=== PATIENT | female | born 1945 | race African-American/Black ===

== ENCOUNTER 2020-09-15 08:32 | Outpatient (CLI) | payer MEDICARE, SELFPAY ==
--- NOTE | ~2020-09-15 | US_ITS ---
EXAMINATION: US arterial ankle brachial ind EXAM DATE: 09/15/2020 09:29 INDICATION: Localized edema. TECHNIQUE: Segmental pressures and plethysmographic and Doppler waveforms of the brachial and lower e xtremity arteries were obtained. There is no prior study for comparison. FINDINGS: Right and left brachial artery pressures of 150 mm Hg and 178 mm Hg, respectively, are borderline dis cordant (normal difference <= 30 mmHg). RIGHT LEG: The ankle-brachial index (JERSEY) is 0.75 (normal >= 0.9-1). The great toe-brachial index (TBI) is 0.39 (normal >= 0.65). The lower extremity ratios, segmental pressure gradients as follows; Dorsalis pedis: 0.68 (121 mmHg). Posterior tibial: 0.75 (133 mmHg). (Normal gradients <= 20-30 mmHg between adjacent levels on the same leg or the same levels on the two legs). Arterial waveforms are monophasic. LEFT LEG: The ankle-brachial index (JERSEY) is 0.89 (normal >= 0.9-1). The great toe-brachial index (TBI) is 0.43 (normal >= 0.65). The lower extremity ratios, segmental pressure gradients as follows; Dorsalis pedis: 0.89 (158 mmHg). Posterior tibial: 0.83 (148 mmHg). (Normal gradients <= 20-30 mmHg between adjacent levels on the same leg or the same levels on the two legs). Arterial waveforms are biphasic DP, monophasic PT. IMPRESSION: 1. Right ankle-brachial index 0.75, mildly decreased. 2. Left ankle-brachial index 0.89, essentially normal. 3. Segmental pressures as above. 4. 28 mmHg discrepancy between right and left brachial arteries, possibly indicating subclavian dahiana rial stenosis on the right. If indicated clinically, a CTA carotid with contrast specify left arm inj ection can be obtained. Reviewed, dictated and finalized at location A. IMPRESSION: 1. Right ankle-brachial index 0.75, mildly decreased. 2. Left ankle-brachial index 0.89, essentially normal. 3. Segmental pressures as above. 4. 28 mmHg discrepancy between right and left brachial arteries, possibly jus cating subclavian arterial stenosis on the right. If indicated clinically, a CT A carotid with contrast specify left arm injection can be obtained.
== END 2020-09-15 08:33 | disposition home or self-care (01) ==
PROVIDERS: Visit Provider Orthopaedic Surgery
DX: R60.0 Localized edema (principal); R09.89 Other specified symptoms and signs involving the circulatory and respiratory systems
CPT/HCPCS: 93922

== ENCOUNTER 2021-03-25 19:29 | Inpatient (IN) | payer MEDICARE, SELFPAY ==
--- NOTE | ~2021-03-25 | XR_ITS ---
XR chest 2V DATE: 03/25/2021 20:12 INDICATION: Midsternal left-sided chest pain, shortness of breath. History of COPD, hypertension TECHNIQUE: AP and lateral chest COMPARISON: None FINDINGS: Normal heart size. Aortic arch calcification and mild aortic unfolding. No hilar or mediast inal enlargement. No pulmonary infiltrate or consolidation, pleural effusion or pulmonary vascular congestion or pneumo thorax. Degenerative spurring of the thoracic spine. IMPRESSION: No active cardiopulmonary disease Reviewed, dictated and finalized at location A.
--- NOTE | 2021-03-25 19:30 | ECG_ITS ---
Measurements Intervals [place] Rate: 72 P: 75 IN: 144 QRS: -12 QRSD: 109 T: 231 QT: 399 QTc: 437 Interpretive Statements SINUS RHYTHM DELAYED PRECORDIAL R/S TRANSITION T WAVE ABNORMALITY IN LATERAL LEADS- CONSIDER ISCHEMIA BASELINE ARTIFACT- I, II, III, AVR ABNORMAL ECG Electronically Signed On 03-25-2021 22:32:57 CDT by Marcos Salcido D.O.
[2021-03-25 19:40] VITALS: BP 171/98; PULSE 76; RESP 18; TEMP 36.8; O2SAT 99
[2021-03-25 19:49] VITALS: PULSE 72
[2021-03-25 20:07] LABS: Basophils Percent Auto 0.7 % (0.2-1.2); Eosinophils Absolute Auto 0.3 K/mm3 (0-0.3); Eosinophils Percent Auto 4.3 % (0-4.4); Hematocrit 40.6 % (37.0-47.0); Hemoglobin 13.7 g/dL (12.0-15.0); Immature Granulocyte Absolute 0.01 K/mm3 (0.00-0.031); Immature Granulocyte Percent A 0.2 % (0-0.5); Lymphocytes Absolute Auto 2.19 K/mm3 (0.9-3.2); Mean Corpuscular HGB Conc 33.7 g/dl (32-36); Mean Corpuscular Hemoglobin 29.1 pg (26-34); Mean Corpuscular Volume 86.4 fl (80-100); Mean Platelet Volume 10.4 fl (7.4-10.4); Monocytes Absolute Auto 0.5 K/mm3 (0.1-0.6); Monocytes Percent Auto 8.7 % (2.6-8.5); Neutrophils Absolute Auto 2.8 K/mm3 (1.3-6.7); Neutrophils Percent Auto 48.1 % (45.5-73.1); Platelet Count Result 276 k/mm3 (150-375); Red Cell Distribution Width 13.8 % (11.5-14.5); White Blood Count 5.8 K/mm3 (4.5-10.0)
[2021-03-25 20:18] LABS: Anion Gap 9 mmol/L (8-16); Blood Urea Nitrogen 35 mg/dL (7-17); Carbon Dioxide 31 mmol/L (22-30); Chloride 101 mmol/L (98-107); Estimated CRCL calculation 32 ml/min; Estimated Glomerular Filt Rate 41; Glucose 118 mg/dL (65-110); Sodium 141 mmol/L (137-145)
[2021-03-25 20:23] LABS: Prothrombin Time 12.8 Seconds (11.1-14.7)
[2021-03-25 20:24] LABS: Partial Thromboplastin Time 25.1 SECONDS (22.3-36.8)
[2021-03-25 20:29] LABS: Troponin I 0.015 ng/mL (0.000-0.034)
--- NOTE | 2021-03-25 21:09 | ECG_ITS ---
Measurements Intervals [place] Rate: 64 P: 89 [place]: 164 QRS: -37 QRSD: 110 T: 145 QT: 422 QTc: 436 Interpretive Statements SINUS RHYTHM LEFT AXIS DEVIATION DELAYED PRECORDIAL R/S TRANSITION INFERIOR INFARCT, AGE INDETERMINATE ST-T WAVE ABNORMALITY IN ANTEROLAT/HIGH LAT LEADS- CONSIDER ISCHEMIA BASELINE ARTIFACT- I, II, III, AVR, AVL, AVF, V1-V6 ABNORMAL ECG Electronically Signed On 03-28-2021 10:00:05 CDT by Marcos Salcido D.O.
--- NOTE | 2021-03-25 21:11 | PC.NURSE ---
2100 pt c/o chest pain 10/10 12 lead ekg repeated
[2021-03-25 21:12] VITALS: BP 179/90; PULSE 69; RESP 18; O2SAT 99
[2021-03-25 21:15] LABS: Alanine Aminotransferase 17 U/L (4-35); Albumin Level 4.7 g/dL (3.5-5.1); Alkaline Phosphatase 97 U/L (38-126); Aspartate Amino Transferase 37 U/L (14-36); Bilirubin,Total 0.6 mg/dL (0.2-1.3); Lipase 169 U/L (23-300)
--- NOTE | 2021-03-25 21:16 | ED.GENADULT ---
HPI - General Adult General Chief complaint: Chest Pain Stated complaint: chest pain Time Seen by Provider: 03/25/21 19:44 History of Present Illness HPI narrative: Patient 75-year-old female presents emerged department with chief complaint of chest pain. Patient reports that she has been having some intermittent episodes of discomfort in her chest she was seen at a facility over in [place] recently was admitted had a stress test the patient did not have a cardiac cath at that time and the patient was to follow-up as an outpatient. The patient reports that today she has been having multiple episodes of a heaviness sensation in her chest that radiates to her jaw. Patient states the symptoms were improved with nitroglycerin that she was given by EMS she reports she is taken 4 baby aspirin prior to arrival as well Related Data Home Medications Medication Instructions Recorded Confirmed carvedilol 25 mg tablet 25 mg PO Q12H 04/21/20 07/24/20 clopidogrel 75 mg tablet 75 mg PO DAILY 04/21/20 07/24/20 insulin aspart U-100 100 unit/mL 5 unit SUBCUT TID 04/21/20 07/24/20 (3 mL) subcutaneous pen losartan 100 mg tablet 100 mg PO DAILY 04/21/20 07/24/20 meclizine 25 mg tablet 25 mg PO BID 04/21/20 07/24/20 nifedipine 30 mg tablet,extended 30 mg PO DAILY 04/21/20 07/24/20 release spironolactone 25 mg tablet 25 mg PO DAILY 04/21/20 07/24/20 Allergies Allergy/AdvReac Type Severity Reaction Status Date / Time meperidine [From Demerol] Allergy Hives Verified 03/25/21 20:00 erythromycin base AdvReac make heart Verified 03/25/21 20:03 flip/flop [id number] Reductase AdvReac body pain Verified 03/25/21 20:02 Inhibitor Review of Systems Review of Systems: A 10 system review of systems was completed on the patient and is negative except for what is stated in the HPI. Nursing and ancillary documentation was reviewed. [facility] Past Medical History Medical History Arthritis Bilateral lower extremity edema COPD (chronic obstructive pulmonary disease) Diabetes High cholesterol Kidney disease Left knee DJD Left knee pain Right knee pain Shortness of breath Sleep apnea Surgical History Surgical History History of carpal tunnel release History of vascular surgery Family History Family History Other Diabetes mellitus Heart disease Hypertension Social History Social History Smoking status: Former smoker Alcohol intake: current Exam Narrative: GENERAL: Well-appearing, well-nourished, and in no acute distress. HEAD: Normocephalic, atraumatic. EYES: PERRLA and EOMI. ENT: Nares clear, no rhinorrhea or epistaxis. Mucous membranes moist. NECK: Supple. CHEST: Clear to auscultation. No respiratory distress. HEART: Regular rate and rhythm. No murmur heard. Normal peripheral pulses. ABDOMEN: Soft, nontender, nondistended, normal active bowel sounds. EXTREMITIES: Normal range of motion. No edema. SKIN: Warm, dry, no rash. NEURO: No focal deficits. Alert and oriented x3. PSYCH: Normal mood and affect. Course Vital Signs Vital signs: Vital Signs Temperature 36.8 C 03/25/21 19:40 Pulse Rate 76 03/25/21 19:40 Respiratory Rate 18 03/25/21 19:40 Blood Pressure 171/98 H 03/25/21 19:40 Pulse Oximetry 99 03/25/21 19:40 Temperature 36.8 C 03/25/21 19:40 Pulse Rate 72 03/25/21 22:27 Respiratory Rate 20 03/25/21 22:27 Blood Pressure 208/102 H 03/25/21 22:27 Pulse Oximetry 99 03/25/21 21:12 Medical Decision Making Vital Signs Vital Signs: Vital Signs Temperature 36.8 C 03/25/21 19:40 Pulse Rate 76 03/25/21 19:40 Respiratory Rate 18 03/25/21 19:40 Blood Pressure 171/98 H 03/25/21 19:40 Pulse Oximetry 99
[2021-03-25] MEDS: ONDANSETRON INJ 4 MG/2 ML VIAL IV PUSH (22:04)
[2021-03-25 22:27] VITALS: BP 208/102; PULSE 72; RESP 20
--- NOTE | 2021-03-25 22:28 | PC.NURSE ---
rates chest pain 6/10 ntg 0.4mg sl
[2021-03-25] MEDS: NITROGLYCERIN SL 0.4 MG TABLET SUBLINGUAL (22:29)
[2021-03-25] MEDS: MORPHINE SULFATE (*CRX) 4 MG/ML INJ IV PUSH (22:30)
[2021-03-25] MEDS: BELLADONNA ALK/PHENOB ELIX 10 ML, MAG HYDROX/ALUMINUM HYD/SIMETH 30 ML, LIDOCAINE HCL 2... PO (22:32)
[2021-03-25] MEDS: NITROGLYCERIN OINTMENT 1 INCH DOSE TRANSDERM (22:34)
[2021-03-25] MEDS: PANTOPRAZOLE SODIUM IV 40 MG VIAL IV PUSH (22:37)
[2021-03-25 22:38] VITALS: BP 130/84; PULSE 84; RESP 18
[2021-03-25 22:55] LABS: Troponin I 0.015 ng/mL (0.000-0.034)
[2021-03-25 23:36] VITALS: BP 156/76; PULSE 63; RESP 18; O2SAT 95
[2021-03-26] VITALS (18 sets, daily range): BP systolic 120–164; BP diastolic 46–83; PULSE 50–94; RESP 16–20; TEMP 36.2–36.6; O2SAT 94–99; BMI 27.8; BMI 27.9
--- NOTE | 2021-03-26 01:24 | ADMGEN ---
This patient, Sony Ricardo, was admitted to IMU Room 206-01 at 0055. Patient/family oriented to hospital policies and general routines including ID bracelet, bed and alarms, visiting hours, pain management, procedures, bathroom and other care routines, personal items, smoking policy, room service/diet, and visiting hours. Information on how to activate the Rapid Response Team has been discussed. Patient/Family are encouraged to report perceived risks to care and to ask questions if they do not understand what they are told or what they should do.
[2021-03-26 02:50] LABS: Troponin I 0.038 ng/mL (0.000-0.034)
--- NOTE | 2021-03-26 05:10 | PM.IMHP ---
H&P: HPI History of Present Illness Date/Time: 03/26/21 05:10 Chief Complaint: Chest pain Narrative: Extremely pleasant 75-year-old female with a past medical history of peripheral artery disease, diabetic nephropathy, diabetic neuropathy, well controlled diabetes mellitus, hyperlipidemia, and hypertension who presented to the ER with chest pain. The patient reports that she has been having intermittent chest pain for 1 month. Two weeks ago she went to hospital in [place] where she had a stress test and an echocardiogram. She was told that her heart with strong but was instructed to follow up as outpatient for further evaluation. She reports her chest pain is substernal in nature and is a heaviness. The pain radiates to her right arm and right jaw. Is accompanied by nausea, diaphoresis and shortness of breath. She reported that her symptoms started while she was at rest and started around 2:00 a.m. on the . She took 3 nitro and 4 baby aspirin with improvement in her symptoms. Then a couple of hours later she had recurrence of her symptoms and required 2 more nitro and aspirin. She had her son bring her to the ER but before they got to the ER her chest pain resolved so she went home. She then had symptoms again in laid down. This time her symptoms did not resolve and she came back to the ER. She reports that she had a prior cardiac catheterization performed by Dr. Ledezma at [facility] several years ago that demonstrated no significant coronary artery disease. She had peripheral vascular angiogram approximately 4 years ago with bilateral lower extremity stents placed. She had bilateral renal artery stents placed approximately 2 years ago. She denies any orthopnea. She has been having some bilateral ankle swelling for the last couple of months. She denies any paroxysmal nocturnal dyspnea. She has some chronic shortness of breath due to her COPD. She does have nebulizers at home but has not had the use them in quite some time. She denies any significant cough or congestion. She denies any fevers or chills. She has not vaccinated against COVID. She denies a history of CHF but is on Bumex at home. She ambulates with a walker at home due to left knee pain. She states that she needs a knee replacement but they will not do it until her other medical issues are better. She had ABIs performed in August which demonstrated decreased JERSEY in the right lower extremity. It also demonstrated a 28 point very insulin upper extremity blood pressure suggesting possible right-sided subclavian stenosis and recommended CTA of the carotids at that time however they did not proceed with the testing due to the patient's chronic kidney disease. Review of Systems Review of Systems: 12 systems were reviewed with pertinent positives and negatives per HPI. Except as documented in the HPI, all other systems were reviewed and are negative. [facility] Past Medical History Medical History (Updated 03/26/21 @ 07:08 by Niru Gamino DO) Bilateral atherosclerotic renal artery stenosis Chronic kidney disease, stage 3 COPD (chronic obstructive pulmonary disease) Diabetes Hemoglobin A1c 6.5 % March 2021 Diabetic nephropathy Diabetic neuropathy High cholesterol Intolerant to statins History of stent insertion of renal artery Left knee DJD Obstructive sleep apnea Intolerant to CPAP Peripheral artery disease Right knee pain Surgical History Surgical History (Updated 03/26/21 @ 06:59 by Niru Gamino DO) History of carpal tunnel release History of vascular surgery Bilateral lower extremity stents Family History Family History Other Diabetes mellitus Heart disease Hypertension Social History Social History (Updated 03/26/21 @ 07:02 by Niru Gamino DO) Social History: She lives at home alone. She ambulates with a walker due to her knee pain. She is independent activities
[2021-03-26] MEDS: NITROGLYCERIN OINTMENT 1 INCH DOSE TRANSDERM ×4 (06:46→23:24)
[2021-03-26 08:53] LABS: Glucose Point of Care 71 mg/dl (65-105)
--- NOTE | 2021-03-26 09:05 | PM.CNCAR ---
Assessment and Plan Assessment and plan (1) Chest pain at rest: Code(s): R07.9 - Chest pain, unspecified Status: Acute Assessment and Plan: Concerning for unstable angina. She does have high blood pressure also which may be causing the pain but given the fact that she has had a recent stress test and yet recurrent classic symptoms that are worsened with activity and improved with rest or nitroglycerin, I think it is prudent to proceed with coronary angiogram to define her coronary anatomy. She verbalized understanding and is agreeable. She does have some chronic renal insufficiency. Catheterization will be deferred until tomorrow. For today will start her on IV fluids at 75 cc per hour normal saline for renal protection. Nitroglycerin paste 1 in Q 6 hours. Will check a 2D echocardiogram Doppler. Continue clopidogrel. Will give her an ACS dose of enoxaparin 1 milligram/kilogram x1 now. Carvedilol 25 mg p.o. b.i.d.. Hold Bumex for today. Increase nifedipine to 60 mg daily. Continue losartan. Diabetes management per hospitalist. She may eat now within NPO after midnight. (2) Peripheral vascular disease: Code(s): I73.9 - Peripheral vascular disease, unspecified Status: Acute Assessment and Plan: As detailed above. Will request records from [facility] regarding recent stress test as well as records from [facility] (3) Hypertension associated with diabetes: Code(s): E11.59 - Type 2 diabetes mellitus with other circulatory complications; I15.2 - Hypertension secondary to endocrine disorders Status: Acute Assessment and Plan: Above goal. Continue carvedilol, losartan. Will increase nifedipine to 60 mg daily. (4) Hyperlipidemia associated with type 2 diabetes mellitus: Code(s): E11.69 - Type 2 diabetes mellitus with other specified complication; E78.5 - Hyperlipidemia, unspecified Status: Acute Assessment and Plan: Intolerant to statins. Outpatient [facility] would be advisable (5) CKD (chronic kidney disease) stage 3, GFR 30-59 ml/min: Code(s): N18.30 - Chronic kidney disease, stage 3 unspecified Status: Acute Assessment and Plan: Plan as above including IV hydration before and after catheterization. Coronary angiogram only without LV g will be performed. . (6) Elevated troponin: Code(s): R77.8 - Other specified abnormalities of plasma proteins Status: Acute Assessment and Plan: Either related to underlying ischemic heart disease or marked hypertension. (7) Tobacco abuse: Code(s): Z72.0 - Tobacco use Status: Acute Assessment and Plan: Counseling performed History of Present Illness History of Present Illness Consult date/time: 03/26/21 09:05 Requesting physician: Jhon Infante MD Consult reason: chest pain Reason For Visit: chest pain, unstable angina Narrative: Date of service: 03/26/2021 Reason for consultation: Chest pain, unstable angina Requesting provider: Dr. INFANTE History: Patient is a 75-year-old female with a history of peripheral vascular disease, diabetes and diabetic complications including neuropathy, nephropathy, hyperlipidemia hypertension. She has been having worsening chest pains for about a month. Chest pains are severe pressure-like sensation in her anterior chest. It also radiates to the right side of her jaw as well as down her right arm. It occurs with and without activity but is definitely worsening with activity. It is improved with rest and nitroglycerin. Yesterday she took 5 nitroglycerin with improvement of her symptoms each time but the symptoms would come back. Her symptoms yesterday lasted about an hour before she came to the emergency department for further workup and evaluation. She also took 4 aspirins yesterday. She has peripheral vascular disease and had lower extremity stents placed about 4 years ago as well as renal
[2021-03-26] MEDS: ENOXAPARIN 40 MG/0.4 ML SYRINGE SUB-Q ×2 (09:07→11:12)
[2021-03-26] MEDS: BUMETANIDE 1 MG TABLET PO (09:07)
[2021-03-26] MEDS: NIFEdipine 30 MG TAB.ER.24 PO (09:07)
[2021-03-26] MEDS: CLOPIDOGREL BISULFATE 75 MG TABLET PO (09:07)
[2021-03-26] MEDS: LOSARTAN POTASSIUM 100 MG TABLET PO (09:07)
[2021-03-26] MEDS: carvediloL 25 MG TABLET PO ×2 (09:07→17:25)
[2021-03-26] MEDS: ASPIRIN 81 MG CHEWABLE TABLET PO (09:07)
[2021-03-26] MEDS: MECLIZINE HCL 25 MG TABLET PO ×2 (09:07→17:25)
[2021-03-26] MEDS: SODIUM CHLORIDE 0.9% IV 1,000 ML 75 ML IV CONT ×2 (11:12→23:24)
[2021-03-26 12:58] LABS: Glucose Point of Care 112 mg/dl (65-105)
--- NOTE | 2021-03-26 13:48 | PM.IMPN ---
Progress Note: A&P Assessment and Plan (1) Chest pain at rest: Code(s): R07.9 - Chest pain, unspecified Status: Acute Assessment and Plan: According to patient she just had extensive workup performed at outside facility including a stress test however patient with recurrent chest pain. Patient going for left cardiac catheterization Appreciate cardiology note Supportive care (2) Insulin dependent diabetes mellitus: Status: Acute Assessment and Plan: Continue home meds Accu-Cheks AC and HS Carb consistent diet (3) Chronic kidney disease, stage 3: Code(s): N18.30 - Chronic kidney disease, stage 3 unspecified Status: Inactive Assessment and Plan: Continue to monitor Additional Plan Patient has a history of multiple comorbidities in presented with chest pain at rest. Her initial 2 troponins were negative but her final troponin did return weekly positive. She has not had a recurrence of her chest pain since arriving to the intermediate unit. Patient has been admitted to the intermediate unit. He has been monitored on telemetry. With completed serial enzymes. Cardiology has been consulted for further recommendations. Will continue patient's home Bumex, Coreg, Plavix and aspirin. Will continue her nifedipine for her hypertension. The patient has historically well-controlled diabetes mellitus. She remains euglycemic. The patient may continue to use her insulin pump. Her pump is filled with NovoLog. Her basal rate is 1 unit/hour between midnight and 7:30 a.m.. The rest the day her rate is at 1.3 units. Her insulin to carb ratio is 1 unit per every 10 carbs. Her correction factor is 1 unit of insulin for every 30 mg/dL of glucose above 120. The patient's creatinine is stable and at baseline. Her civil preparedness coordinator is Dr. Mayberry at [facility] Patient has been admitted as observation status. Subjective Date/time seen: 03/26/21 13:48 I have chest pain Review of Systems Review of Systems: Patient presented to the emergency room due to retrosternal chest pain with radiation bilaterally and up to the jaw Constitutional: Constitutional: Denies chills, Denies fatigue, Denies fever(s), Denies malaise and Denies weakness Eyes: Eyes: Denies change in vision ENT: Denies dysphagia, Denies nasal congestion, Denies nasal discharge, Denies nasal obstruction and Denies odynophagia Cardiovascular: Cardiovascular: Reports chest pain at rest, Denies irregular heart rhythm, Denies lightheadedness, Reports radiating jaw, neck or arm pain, Denies palpitations and Denies dyspnea Respiratory: Respiratory: Denies cough, Denies dyspnea and Denies wheezing Gastrointestinal: Gastrointestinal: Denies abdominal pain, Denies GI cramping, Denies dyspepsia, Denies heartburn, Denies diarrhea, Denies nausea and Denies vomiting Genitourinary: Genitourinary: Reports no additional female genitourinary complaints Musculoskeletal: Musculoskeletal: Reports no additional musculoskeletal complaints Integumentary/Breasts: Skin/Breast: Reports system reviewed and no additional complaints, except as docu Neurologic: Reports system reviewed and no additional complaints, except as documented Psychiatric: Psychiatric: Reports no additional psychiatric complaints Endocrine: Endocrine: Reports no additional endocrine complaints Hematologic/Lymphatic: Hematologic/Lymphatic: Reports no additional hematologic/lymphatic complaints Allergic/Immunologic: Allergic/Immunologic: Reports no additional allergic/immunologic complaints Exam Const: General: cooperative, comfortable, no acute distress, well developed, alert, awake and other (Well-appearing) Nutritional Appearance: average body habitus Orientation/consciousness: patient oriented x3 HENMT: Head: normal to inspection, normocephalic and atraumatic Ears: hearing grossly normal bilaterally General nose exam: Normal external nose present Face and sinus: normal facial exa
[2021-03-26 16:28] LABS: Glucose Point of Care 127 mg/dl (65-105)
[2021-03-26 19:57] LABS: Glucose Point of Care 130 mg/dl (65-105)
[2021-03-27] VITALS (24 sets, daily range): BP systolic 113–166; BP diastolic 47–86; PULSE 45–74; RESP 12–20; TEMP 36.1–37.1; O2SAT 96–100
[2021-03-27] MEDS: NITROGLYCERIN OINTMENT 1 INCH DOSE TRANSDERM ×4 (05:47→23:43)
--- NOTE | 2021-03-27 07:38 | PM.IMPN ---
Progress Note: A&P Assessment and Plan (1) Chest pain at rest: Code(s): R07.9 - Chest pain, unspecified Status: Acute Assessment and Plan: According to patient she just had extensive workup performed at outside facility including a stress test however patient with recurrent chest pain. Patient going for left cardiac catheterization (2) Insulin dependent diabetes mellitus: Status: Acute Assessment and Plan: Continue home meds Accu-Cheks AC and HS Carb consistent diet (3) Chronic kidney disease, stage 3: Code(s): N18.30 - Chronic kidney disease, stage 3 unspecified Status: Inactive Assessment and Plan: Continue to monitor Additional Plan 75yo lady with exertional chest pain concerning for unstable angina. Cardiology on board and plan for cardiac cath today, which was completed: -s/p with mid lad stent -noted 70% stenosis OM proximal branch, 30-40% proximal RCA stenosis & 50-70% mid RCA stenosis Continue DAPTShe is receiving Q6hr nitroglycerin paste and coreg. Holding bumex and inc nifedipine to 60 per cardiology. Follow 2d echo. Plan for discharge tomorrow morning. Time Spent With Patient Time with patient: less than 15 minutes Subjective Date/time seen: 03/27/21 07:38 no acute complaints resting comfortably Review of Systems Review of Systems: All systems reviewed & are unremarkable except as noted in HPI and below Exam Const: General: no acute distress Neck: Neck: no JVD Resp: Auscultation: clear to auscultation bilaterally Cardio: Rate: regular rate Rhythm: regular rhythm GI: GI Palp: Yes Soft to palpation and No Tenderness to palpation present (GI) Objective Data Vital Signs Vital Signs: Vital Signs - 24 hr 03/26/21 08:00 03/26/21 09:07 03/26/21 10:00 Temperature 97.9 F Pulse Rate 54 L 60 68 Respiratory Rate 18 Blood Pressure 135/71 Pulse Oximetry 95 03/26/21 12:00 03/26/21 14:00 03/26/21 16:00 Temperature 97.6 F 97.2 F L Pulse Rate 61 50 L 54 L Respiratory Rate 18 16 Blood Pressure 121/59 L 139/68 Pulse Oximetry 94 99 03/26/21 17:25 03/26/21 18:00 03/26/21 19:14 Temperature 97.5 F L Pulse Rate 59 L 55 L 55 L Respiratory Rate 16 Blood Pressure 135/46 L Pulse Oximetry 98 03/26/21 20:00 03/26/21 21:18 03/26/21 22:00 Temperature Pulse Rate 73 52 L Respiratory Rate 16 Blood Pressure Pulse Oximetry 98 96 03/26/21 23:36 03/27/21 00:00 03/27/21 02:00 Temperature 97.5 F L Pulse Rate 52 L 59 L 48 L Respiratory Rate 20 20 Blood Pressure 120/56 L Pulse Oximetry 96 96 03/27/21 03:47 03/27/21 04:00 03/27/21 06:00 Temperature 97.2 F L Pulse Rate 68 50 L 58 L Respiratory Rate 16 16 Blood Pressure 127/57 L Pulse Oximetry 99 99 Intake/Output Intake/Output: Intake & Output 03/24/21 03/25/21 03/26/21 03/27/21 23:59 23:59 23:59 23:59 Intake Total 2560 Output Total 1600 900 Balance 960 -900 Meds/Results Medications: Active Medications Generic Name Dose Route Start Last Admin Trade Name Freq PRN Reason Stop Dose Admin Aspirin 81 mg 03/26/21 08:00 03/26/21 09:07 Aspirin 81 Mg Chewable Tablet PO 81 mg DAILY@0800 KEYLA Administration Bumetanide 1 mg 03/26/21 09:00 03/26/21 09:07 Bumetanide 1 Mg Tablet PO 1 mg DAILY KEYLA Administration Carvedilol 25 mg 03/26/21 08:00 03/26/21 17:25 Carvedilol 25 Mg Tablet PO 25 mg BIDWM KEYLA Administration Clopidogrel Bisulfate 75 mg 03/26/21 09:00 03/26/21 09:07 Clopidogrel Bisulfate 75 Mg Tablet PO 75 mg DAILY KEYLA Administration Dextrose 12.5 gm 03/26/21 05:15 Dextrose 50% 25 Gm/50 Ml Syringe IV PUSH PRN PRN Hypoglycemia Protocol Glucagon 1 mg 03/26/21 05:15 Glucagon For Inj 1 Mg Vial IM PRN PRN Hypoglycemia Protocol Glucose 15 gm 03/26/21 05:15 Glucose Oral Gel 15 Gm Of Glucse In 37.5 Gm Tube PO PRN PRN Hypoglycemia
[2021-03-27 08:07] LABS: Basophils Percent Auto 0.6 % (0.2-1.2); Eosinophils Absolute Auto 0.3 K/mm3 (0-0.3); Eosinophils Percent Auto 6.5 % (0-4.4); Hematocrit 34.8 % (37.0-47.0); Hemoglobin 11.5 g/dL (12.0-15.0); Immature Granulocyte Absolute 0.01 K/mm3 (0.00-0.031); Immature Granulocyte Percent A 0.2 % (0-0.5); Mean Corpuscular Hemoglobin 29.5 pg (26-34); Mean Corpuscular Volume 89.2 fl (80-100); Mean Platelet Volume 10.2 fl (7.4-10.4); Monocytes Absolute Auto 0.5 K/mm3 (0.1-0.6); Monocytes Percent Auto 9.5 % (2.6-8.5); Neutrophils Absolute Auto 2.2 K/mm3 (1.3-6.7); Neutrophils Percent Auto 41.2 % (45.5-73.1); Platelet Count Result 220 k/mm3 (150-375); White Blood Count 5.2 K/mm3 (4.5-10.0)
[2021-03-27 08:19] LABS: Alanine Aminotransferase 13 U/L (4-35); Albumin Level 3.6 g/dL (3.5-5.1); Alkaline Phosphatase 72 U/L (38-126); Anion Gap 2 mmol/L (8-16); Aspartate Amino Transferase 28 U/L (14-36); Bilirubin,Total 0.5 mg/dL (0.2-1.3); Blood Urea Nitrogen 27 mg/dL (7-17); Calcium 9.7 mg/dL (8.4-10.2); Carbon Dioxide 36 mmol/L (22-30); Chloride 103 mmol/L (98-107); Estimated CRCL calculation 28 ml/min; Estimated Glomerular Filt Rate 33; Glucose 71 mg/dL (65-110); Potassium 4.1 mmol/L (3.4-5.0); Sodium 141 mmol/L (137-145)
[2021-03-27 08:34] LABS: Glucose Point of Care 61 mg/dl (65-105)
[2021-03-27 08:38] LABS: Glucose Point of Care 65 mg/dl (65-105)
--- NOTE | 2021-03-27 08:39 | PC.NURSE ---
0834- to cardiac assistant laboratory director for procedure
--- NOTE | 2021-03-27 08:46 | WPDMODSED ---
Moderate Sedation Note-Pt Data Patient Data Allergies Allergy/AdvReac Type Severity Reaction Status Date / Time meperidine [From Demerol] Allergy Hives Verified 03/25/21 20:00 erythromycin base AdvReac make heart Verified 03/25/21 20:03 flip/flop [id number] Reductase AdvReac body pain Verified 03/25/21 20:02 Inhibitor Home Medications Medication Instructions Recorded Confirmed Type carvedilol 25 mg tablet 25 mg PO Q12H 04/21/20 03/26/21 History clopidogrel 75 mg tablet 75 mg PO DAILY 04/21/20 03/26/21 History insulin aspart U-100 100 unit/mL 5 unit SUBCUT TID 04/21/20 03/26/21 History (3 mL) subcutaneous pen losartan 100 mg tablet 100 mg PO DAILY 04/21/20 03/26/21 History meclizine 25 mg tablet 25 mg PO BID 04/21/20 03/26/21 History nifedipine 30 mg tablet,extended 30 mg PO DAILY 04/21/20 03/26/21 History release bumetanide 1 mg PO DAILY 03/26/21 03/26/21 History Current Medications: Active Medications Aspirin (Aspirin 81 Mg Chewable Tablet) 81 mg PO DAILY@0800 [facility] Last Admin: 03/26/21 09:07 Dose: 81 mg Documented by: Bumetanide (Bumetanide 1 Mg Tablet) 1 mg PO DAILY [facility] Last Admin: 03/26/21 09:07 Dose: 1 mg Documented by: Carvedilol (Carvedilol 25 Mg Tablet) 25 mg PO BIDWM [facility] Last Admin: 03/26/21 17:25 Dose: 25 mg Documented by: Clopidogrel Bisulfate (Clopidogrel Bisulfate 75 Mg Tablet) 75 mg PO DAILY [facility] Last Admin: 03/26/21 09:07 Dose: 75 mg Documented by: Dextrose (Dextrose 50% 25 Gm/50 Ml Syringe) 12.5 gm IV PUSH PRN PRN; Protocol PRN Reason: Hypoglycemia Glucagon (Glucagon For Inj 1 Mg Vial) 1 mg IM PRN PRN; Protocol PRN Reason: Hypoglycemia Glucose (Glucose Oral Gel 15 Gm Of Glucse In 37.5 Gm Tube) 15 gm PO PRN PRN; Protocol PRN Reason: Hypoglycemia Dextrose (Dextrose 5% 1,000 Ml) 1,000 mls @ 100 mls/hr IVPB PRN PRN; Protocol PRN Reason: Hypoglycemia Sodium Chloride (Normal Saline Iv) 1,000 mls @ 75 mls/hr IV CONT .[id number] [facility] Last Admin: 03/26/21 23:24 Dose: 75 mls/hr Documented by: Losartan Potassium (Losartan Potassium 100 Mg Tablet) 100 mg PO DAILY [facility] Last Admin: 03/26/21 09:07 Dose: 100 mg Documented by: Meclizine HCl (Meclizine Hcl 25 Mg Tablet) 25 mg PO BID [facility] Last Admin: 03/26/21 17:25 Dose: 25 mg Documented by: Morphine Sulfate (Morphine Sulfate (*Crx) 4 Mg/Ml Inj) 4 mg IV PUSH Q2H PRN PRN Reason: Pain Rated 7-10 Nifedipine (Nifedipine 30 Mg Tab.Er.24) 60 mg PO DAILY [facility] Nitroglycerin (Nitroglycerin Ointment 1 Inch Dose) 1 inch TRANSDERM Q6HR [facility] Last Admin: 03/27/21 05:47 Dose: 1 inch Documented by: Ondansetron HCl (Ondansetron Inj 4 Mg/2 Ml Vial) 4 mg IV PUSH Q4H PRN PRN Reason: Nausea Sedation/Anesthesia: No previous sedation/anesthesia problems (including family history). [facility] Past Medical History Medical History Bilateral atherosclerotic renal artery stenosis Chronic kidney disease, stage 3 COPD (chronic obstructive pulmonary disease) Diabetes Hemoglobin A1c 6.5 % March 2021 Diabetic nephropathy Diabetic neuropathy High cholesterol Intolerant to statins History of stent insertion of renal artery Left knee DJD Obstructive sleep apnea Intolerant to CPAP Peripheral artery disease Right knee pain Surgical History Surgical History History of carpal tunnel release History of hysterectomy History of vascular surgery Bilateral lower extremity stents Hx of cholecystectomy Family History Family History Other Diabetes mellitus Heart disease Hypertension Social History Social History Social History: She lives at home alone. She ambulates with a walker due to her knee pain. She is independent activities of daily living. she has 5 adult children who reportedly healthy. She is a for
--- NOTE | 2021-03-27 08:54 | WPDHPUPDATE1 ---
History and Physical Update Update Date/Time: 03/27/21 08:54 History and Physical has been reviewed, including an updated exam of the patient. There are NO changes in the patient's condition. Risks, benefits, and alternatives have been discussed and questions answered. Patient agrees to proceed with procedure.
--- NOTE | 2021-03-27 10:12 | WPDCARDPROC ---
Cardiac Cath Procedure Note Date of procedure:: 03/27/21 Performing physician:: Chris Real MD Procedure Procedure note:: CARDIAC CATHETERIZATION AND PERCUTANEOUS CORONARY INTERVENTION REPORT DATE OF PROCEDURE: 03/27/2021 INDICATION FOR PROCEDURE: Non ST-elevation myocardial infarction BRIEF CLINICAL HISTORY: 75-year-old female with hypertension, peripheral artery disease, diabetes mellitus on insulin, renal insufficiency ? CKD. Patient presented to [facility] Room on 03/25/2021 with complaints of anginal chest pain, relieved with nitroglycerin. EKG showed with ST-T abnormalities suggestive of ischemia. First 2 sets of troponins were negative, 3rd set was mildly elevated. Clinical presentation was consistent with non ST elevation GA. Patient was referred for cardiac catheterization. Patient was rehydrated with normal saline given her renal insufficiency. Benefits and risks of the procedure were discussed with the patient in depth, and informed consent was obtained prior to the procedure. Risks of the procedure include but are not limited to vascular complications including groin hematoma, retroperitoneal bleed, vessel perforation; periprocedural GA, cardiac arrhythmias, stroke, contrast induced nephropathy, and . After discussing all the benefits, risks and alternatives, patient was willing to proceed with the procedure. PROCEDURES PERFORMED: 1. Left heart catheterization- Selective left and right coronary angiogram; left ventriculogram and hemodynamic assessment 2. Percutaneous coronary intervention- a) Intravascular ultrasound ( IVUS) of proximal-mid LAD b) IVUS guided PCI -balloon angioplasty and stenting of diffuse stenosis in the mid LAD using a 3.5 x 26 mm Biotronik orsiro sirolimus eluting stent. 3. Deployment of Mynx vascular closure device 4. Moderate sedation-CPT code 82096 MODERATE SEDATION: Midazolam 2 mg; fentanyl 50 mcg. Start time 0902 , Stop time 1005 ; Total [id number] time 63 minutes; Latisha Fowler RN was trained observer for moderate sedation. ACCESS SITE: Right common femoral artery PROCEDURE NOTE: After obtaining informed consent, patient was brought to catheterization lab and prepped and draped in a usual sterile manner. After local anesthesia with lidocaine, right common femoral artery access was taken with micropuncture needle followed by insertion of a 5 Cameroonian sheath. Selective left and right coronary angiogram was performed using 5 Cameroonian JL4 and JR4 catheters respectively. Orthogonal views were taken. Next, a 5 Cam[place]onian pigtail catheter was advanced in the LV cavity and was flushed with normal saline. LV pressure measurement was performed. After this, left ventriculogram was performed. The catheter was flushed again, and gradient across the aortic valve was measured on the pullback of the catheter. FINDINGS: LEFT MAIN CORONARY: the left main coronary artery is a medium to large caliber vessel, no significant focal stenosis. The vessel bifurcates into LAD and left circumflex branches. LEFT ANTERIOR DESCENDING ARTERY: Lad is a medium to large caliber vessel, tapers distally, becomes tortuous in the distal segment and reaches LV apex. There is mild diffuse disease in the proximal segment; diffuse 70-80% stenosis in the mid segment at the origin of the smaller caliber diagonal branch and mild plaque in the distal segment. LEFT CIRCUMFLEX ARTERY: The left circumflex artery is a medium caliber vessel. It gives rise to medium caliber, tortuous OM 1 branch which has about 70% diffuse stenosis in the proximal segment. Om 2 branch is a smaller caliber vessel, tortuous, without significant focal stenosis. The main LCX a very small caliber vessel and continues in the AV groove. RIGHT CORONARY ARTERY: The RCA is a medium caliber, tortuous vessel. This 30-40% diffuse stenosis in the proximal segment, 50-70% stenosis in the mid segment just distal to the RV marginal branch. Distal RCA
[2021-03-27 10:35] LABS: Glucose Point of Care 104 mg/dl (65-105)
[2021-03-27 11:01] LABS: Cholesterol 246 mg/dL (0-200); HDL Direct 26 mg/dL; Triglycerides 172 mg/dL (<150)
--- NOTE | 2021-03-27 11:04 | SUR.PHASEII ---
r. groin site soft, no hematoma, wnl, dressing d/c/i, pulses present, patient is a/ox3. on room air. report given to [facility] imu
[2021-03-27 11:11] LABS: LDL Cholesterol Direct 138 mg/dL
--- NOTE | 2021-03-27 11:27 | PC.NURSE ---
1115-returned to room post cardiac cath- right groin with dressing CDI - right foot warm-pedal pulse weak- verified with doppler; OPERATING ROOM TECH stated +1 prior to procedure- discussed activity post procedure- pt verbalized understanding
[2021-03-27] MEDS: MECLIZINE HCL 25 MG TABLET PO ×2 (11:41→20:33)
[2021-03-27] MEDS: carvediloL 25 MG TABLET PO ×2 (11:43→20:33)
[2021-03-27] MEDS: LOSARTAN POTASSIUM 100 MG TABLET PO (11:43)
[2021-03-27] MEDS: SODIUM CHLORIDE 0.9% IV 1,000 ML 125 ML IV CONT (11:44)
[2021-03-27] MEDS: NIFEdipine 30 MG TAB.ER.24 60 MG PO (11:46)
[2021-03-27 12:48] LABS: Glucose Point of Care 130 mg/dl (65-105)
--- NOTE | 2021-03-27 14:25 | ECG_ITS ---
Measurements Intervals [place] Rate: 62 P: 68 [place]: 177 QRS: -25 QRSD: 94 T: 218 QT: 420 QTc: 429 Interpretive Statements SINUS RHYTHM INCOMPLETE RIGHT BUNDLE BRANCH BLOCK ST-T WAVE ABNORMALITY IN ANTEROLATERAL LEADS- CONSIDER ISCHEMIA BASELINE ARTIFACT- II, III, AVR, AVL, AVF ABNORMAL ECG Electronically Signed On 03-27-2021 15:45:22 CDT by Marcos Salcido D.O.
--- NOTE | 2021-03-27 14:56 | PM.EVENT ---
Event Note Event Note Event Note: Notified by RN that patient was experiencing chest pain during ambulation in the room. Evaluated patient at bedside. At time of evaluation patient was resting comfortably in bed and denies any chest pain. She states her pain was at a 4/10 when present. She also endorses some shortness of breath. Reports that her legs were weak at the time and had some trouble getting back to bed. She was given one SL nitro. EKG was obtained that didn't show any acute ST or T wave abnormalities - does have T wave inversions in the lateral leads which are not new. Will continue to monitor her for any future episodes of chest pain. Discussed this event and reviewed EKG with Dr. Gamino. Will initiate isosorbide ER 30mg daily for angina prophylaxis. Son at bedside during this encounter. Answered all questions to his satisfaction.
[2021-03-27 17:16] LABS: Glucose Point of Care 109 mg/dl (65-105)
--- NOTE | 2021-03-27 19:39 | PC.NURSE ---
1425 pt up to [facility]- c/o chest pressure /10- back to bed- EKG obtained- pressure subsided with rest- [facility] [employer] heart care - called and at bedside to see pt
[2021-03-27 20:01] LABS: Glucose Point of Care 248 mg/dl (65-105)
[2021-03-28] VITALS (18 sets, daily range): BP systolic 119–132; BP diastolic 53–74; PULSE 56–74; RESP 12–20; TEMP 36.3–37.2; O2SAT 95–99
[2021-03-28 02:17] LABS: Glucose Point of Care 80 mg/dl (65-105)
[2021-03-28] MEDS: DEXTROSE 50% 25 GM/50 ML SYRINGE IV PUSH (02:45)
[2021-03-28 03:10] LABS: Glucose Point of Care 145 mg/dl (65-105)
--- NOTE | 2021-03-28 03:11 | PC.NURSE ---
patient stated that she felt her blood sugar was getting low, after asking for something to eat or drink. was to late to check before so checked about 15 min after and blood sugar was 80. gave patient half d50. blood sugar now is 145.
[2021-03-28] MEDS: NITROGLYCERIN OINTMENT 1 INCH DOSE TRANSDERM (05:19)
[2021-03-28 05:25] LABS: Basophils Percent Auto 0.5 % (0.2-1.2); Eosinophils Absolute Auto 0.4 K/mm3 (0-0.3); Eosinophils Percent Auto 5.6 % (0-4.4); Hematocrit 36.7 % (37.0-47.0); Immature Granulocyte Absolute 0.01 K/mm3 (0.00-0.031); Immature Granulocyte Percent A 0.2 % (0-0.5); Lymphocytes Absolute Auto 1.71 K/mm3 (0.9-3.2); Lymphocytes Percent Auto 27.2 % (18.3-44.2); Mean Corpuscular HGB Conc 32.7 g/dl (32-36); Mean Corpuscular Hemoglobin 29.3 pg (26-34); Mean Corpuscular Volume 89.7 fl (80-100); Mean Platelet Volume 10.2 fl (7.4-10.4); Monocytes Absolute Auto 0.5 K/mm3 (0.1-0.6); Monocytes Percent Auto 7.6 % (2.6-8.5); Neutrophils Absolute Auto 3.7 K/mm3 (1.3-6.7); Neutrophils Percent Auto 58.9 % (45.5-73.1); Platelet Count Result 221 k/mm3 (150-375); Red Blood Count 4.09 M/mm3 (4.2-5.4); White Blood Count 6.3 K/mm3 (4.5-10.0)
[2021-03-28 05:42] LABS: Alanine Aminotransferase 13 U/L (4-35); Albumin Level 3.9 g/dL (3.5-5.1); Alkaline Phosphatase 85 U/L (38-126); Anion Gap 7 mmol/L (8-16); Aspartate Amino Transferase 28 U/L (14-36); Bilirubin,Total 0.6 mg/dL (0.2-1.3); Blood Urea Nitrogen 21 mg/dL (7-17); Calcium 10.2 mg/dL (8.4-10.2); Carbon Dioxide 30 mmol/L (22-30); Chloride 104 mmol/L (98-107); Estimated CRCL calculation 34 ml/min; Estimated Glomerular Filt Rate 41; Glucose 101 mg/dL (65-110); Magnesium 2.5 mg/dL (1.6-2.3); Phosphorus 3.3 mg/dL (2.5-4.5); Potassium 4.3 mmol/L (3.4-5.0); Sodium 141 mmol/L (137-145)
[2021-03-28 08:19] LABS: Glucose Point of Care 56 mg/dl (65-105)
[2021-03-28] MEDS: ISOSORBIDE MONONITRATE 30 MG TAB.ER.24H PO (08:44)
[2021-03-28] MEDS: carvediloL 25 MG TABLET PO ×2 (08:44→21:39)
[2021-03-28] MEDS: ATORVASTATIN 40 MG TABLET PO (08:44)
[2021-03-28] MEDS: LOSARTAN POTASSIUM 100 MG TABLET PO (08:44)
[2021-03-28] MEDS: NIFEdipine 30 MG TAB.ER.24 60 MG PO (08:44)
[2021-03-28] MEDS: CLOPIDOGREL BISULFATE 75 MG TABLET PO (08:44)
[2021-03-28] MEDS: ASPIRIN 81 MG CHEWABLE TABLET PO (08:44)
[2021-03-28] MEDS: MECLIZINE HCL 25 MG TABLET PO ×2 (08:44→21:39)
[2021-03-28 08:47] LABS: Glucose Point of Care 95 mg/dl (65-105)
--- NOTE | 2021-03-28 08:54 | PM.IMPN ---
Progress Note: A&P Assessment and Plan (1) Chest pain at rest: Code(s): R07.9 - Chest pain, unspecified Status: Acute Assessment and Plan: According to patient she just had extensive workup performed at outside facility including a stress test however patient with recurrent chest pain. Patient going for left cardiac catheterization (2) Insulin dependent diabetes mellitus: Status: Acute Assessment and Plan: Continue home meds Accu-Cheks AC and HS Carb consistent diet (3) Chronic kidney disease, stage 3: Code(s): N18.30 - Chronic kidney disease, stage 3 unspecified Status: Inactive Assessment and Plan: Continue to monitor Additional Plan Planning for discharge today, however creatinine still elevated to 1.5. Discussed discharging and outpatient follow-up with creatinine, however patient prefers to resolve here before she goes. Furthermore she states that she is still having social chest pain, discussed that this may be related to blockages in vessels that will have to be stented in future, and she understands this. Will keep today for IV fluids for kidney, and better control pain symptoms, plan for discharge tomorrow morning. Appreciate Cardiology recommendations regarding pain control regimen while here and on discharge. Time Spent With Patient Time with patient: less than 15 minutes Subjective Date/time seen: 03/28/21 08:54 Review of Systems Review of Systems: All systems reviewed & are unremarkable except as noted in HPI and below Exam Const: General: no acute distress Neck: Neck: no JVD Resp: Effort & Inspection: normal respiratory effort Auscultation: clear to auscultation bilaterally Cardio: Rate: regular rate Rhythm: abnormal rhythm GI: Inspection: non-distended Objective Data Vital Signs Vital Signs: Vital Signs - 24 hr 03/27/21 10:25 03/27/21 10:46 03/27/21 11:02 Temperature 97.8 F Pulse Rate 47 L 48 L 46 L Pulse Rate [Bilateral Pedal (Dorsalis Pedis) Palpation] 45 L 45 L 45 L Respiratory Rate 12 15 16 Blood Pressure 160/85 H 141/72 H 149/69 H Pulse Oximetry 98 99 97 03/27/21 11:15 03/27/21 11:43 03/27/21 11:45 Temperature 97.7 F 97.9 F Pulse Rate 67 60 59 L Pulse Rate [Bilateral Pedal (Dorsalis Pedis) Palpation] Respiratory Rate 16 18 Blood Pressure 166/86 H 158/68 H Pulse Oximetry 100 99 03/27/21 12:00 03/27/21 12:05 03/27/21 13:15 Temperature 97.6 F 97.7 F Pulse Rate 63 58 L 52 L Pulse Rate [Bilateral Pedal (Dorsalis Pedis) Palpation] Respiratory Rate 16 16 Blood Pressure 150/72 H 153/69 H Pulse Oximetry 98 99 03/27/21 14:15 03/27/21 16:00 03/27/21 16:20 Temperature 98.2 F Pulse Rate 61 52 L 51 L Pulse Rate [Bilateral Pedal (Dorsalis Pedis) Palpation] Respiratory Rate 20 18 Blood Pressure 161/66 H 118/47 L Pulse Oximetry 98 03/27/21 18:00 03/27/21 18:53 03/27/21 20:00 Temperature 98.7 F Pulse Rate 60 72 74 Pulse Rate [Bilateral Pedal (Dorsalis Pedis) Palpation] Respiratory Rate 20 20 Blood Pressure 130/70 Pulse Oximetry 99 99 03/27/21 20:33 03/27/21 22:00 03/27/21 23:24 Temperature 97 F L Pulse Rate 74 70 70 Pulse Rate [Bilateral Pedal (Dorsalis Pedis) Palpation] Respiratory Rate 20 Blood Pressure 113/50 L Pulse Oximetry 98 03/28/21 00:00 03/28/21 02:00 03/28/21 03:00 Temperature 97.4 F L Pulse Rate 71 58 L 62 Pulse Rate [Bilateral Pedal (Dorsalis Pedis) Palpation] Respiratory Rate 20 20 Blood Pressure 121/53 L Pulse Oximetry 98 99 03/28/21 04:00 03/28/21 06:00 03/28/21 07:00 Temperature 98.3 F Pulse Rate 60 56 L 69 Pulse Rate [Bilateral Pedal (Dorsalis Pedis) Palpation] Respiratory Rate 20 12 Blood Pressure 132/74 Pulse Oximetry 99 98 03/28/21 08:44 Temperature Pulse Rate 69 Pulse Rate [Bilateral Pedal (Dorsalis Pedis) Palpation] Respiratory Rate Blood Pressure Pulse Oximetry Intake/Output Intake/Output: I
--- NOTE | 2021-03-28 11:37 | PM.PNCARD ---
Progress Note: A&P Additional Plan 75-year-old black female with: Coronary artery disease with ACS treated by successful PCI of the mid LAD using a drug-eluting stent yesterday. Patient is doing well today and appears to be asymptomatic. We will follow her with you while she is in the hospital anticipate discharge tomorrow as noted by the hospitalist unless further problems arise. Shay Delgadillo MD [facility] Subjective Date/time seen: Date of service: 03/28/21 11:37 Interval history: Follow-up visit in this 75-year-old lady with: Acute coronary syndrome with PCI of the LAD performed yesterday by Dr. Real. Target lesion result was very good patient apparently has some diffuse small-vessel disease as well. She did have some chest discomfort yesterday after completion of bedrest while she was ambulating. No symptoms today. Hospitalist have seen the patient this morning decision was made to keep her in the hospital observing her condition and her renal function at least until tomorrow. Long discussion with the patient about the details of her procedure in the importance of her dual anti-platelet therapy. Exam Const: General: comfortable and no acute distress Other: Very comfortable black female watching television no distress of any kind offers no complaints HENMT: Mouth: Yes moist mucous membranes Eyes: Sclera: sclerae normal Pupils: Equal, round and reactive pupils present Neck: Neck: supple and no JVD Resp: Effort & Inspection: normal respiratory effort Auscultation: clear to auscultation bilaterally Cardio: Rate: regular rate Rhythm: regular rhythm GI: GI Palp: Yes Soft to palpation Auscultation: normal bowel sounds Skin: General skin exam: normal color Neuro: Cognition (Neuro): normal cognition Extrem: General: normal to inspection Objective Data Vital Signs Vital Signs: Vital Signs - 24 hr 03/27/21 11:43 03/27/21 11:45 03/27/21 12:00 Temperature 36.6 C Pulse Rate 60 59 L 63 Respiratory Rate 18 Blood Pressure 158/68 H Pulse Oximetry 99 03/27/21 12:05 03/27/21 13:15 03/27/21 14:15 Temperature 36.4 C 36.5 C Pulse Rate 58 L 52 L 61 Respiratory Rate 16 16 20 Blood Pressure 150/72 H 153/69 H 161/66 H Pulse Oximetry 98 99 03/27/21 16:00 03/27/21 16:20 03/27/21 18:00 Temperature 36.8 C Pulse Rate 52 L 51 L 60 Respiratory Rate 18 Blood Pressure 118/47 L Pulse Oximetry 98 03/27/21 18:53 03/27/21 20:00 03/27/21 20:33 Temperature 37.1 C Pulse Rate 72 74 74 Respiratory Rate 20 20 Blood Pressure 130/70 Pulse Oximetry 99 99 03/27/21 22:00 03/27/21 23:24 03/28/21 00:00 Temperature 36.1 C L Pulse Rate 70 70 71 Respiratory Rate 20 20 Blood Pressure 113/50 L Pulse Oximetry 98 98 03/28/21 02:00 03/28/21 03:00 03/28/21 04:00 Temperature 36.3 C L Pulse Rate 58 L 62 60 Respiratory Rate 20 20 Blood Pressure 121/53 L Pulse Oximetry 99 99 03/28/21 06:00 03/28/21 07:00 03/28/21 08:00 Temperature 36.8 C Pulse Rate 56 L 69 59 L Respiratory Rate 12 Blood Pressure 132/74 Pulse Oximetry 98 03/28/21 08:44 03/28/21 10:00 Temperature Pulse Rate 69 71 Respiratory Rate Blood Pressure Pulse Oximetry Intake/Output Intake/Output: Intake & Output 03/25/21 03/26/21 03/27/21 03/28/21 23:59 23:59 23:59 23:59 Intake Total 2560 1480 Output Total 1600 2700 500 Balance 960 -1220 -500 Meds/Results Medications: Active Medications Generic Name Dose Route Start Last Admin Trade Name Lori PRN Reason Stop Dose Admin Aspirin 81 mg 03/26/21 08:00 03/28/21 08:44 Aspirin 81 Mg Chewable Tablet PO 81 mg DAILY@0800 KEYLA Administration Atorvastatin Calcium 40 mg 03/28/21 09:00 03/28/21 08:44 Atorvastatin 40 Mg Tablet PO 40 mg DAILY KEYLA Administration Bumetanide 1 mg 03/26/21 09:00 03/26/21 09:07 Bumetanide 1 Mg Tablet PO 1 mg DAILY KEY[facility] Administration Carvedilol 25 mg 03/27/21 21:00 10
[2021-03-28 12:26] LABS: Glucose Point of Care 88 mg/dl (65-105)
[2021-03-28] MEDS: LACTATED RINGERS 1,000 ML 100 ML IV CONT ×2 (13:19→23:25)
[2021-03-28 18:11] LABS: Glucose Point of Care 150 mg/dl (65-105)
[2021-03-28 21:07] LABS: Glucose Point of Care 129 mg/dl (65-105)
[2021-03-28] MEDS: FAMOTIDINE 20 MG TABLET PO (21:39)
[2021-03-29] VITALS (11 sets, daily range): BP systolic 113–153; BP diastolic 42–69; PULSE 64–77; RESP 18–24; TEMP 35.7–36.8; O2SAT 96–100
[2021-03-29 05:15] LABS: Basophils Percent Auto 0.3 % (0.2-1.2); Eosinophils Absolute Auto 0.4 K/mm3 (0-0.3); Eosinophils Percent Auto 6.6 % (0-4.4); Hematocrit 33.3 % (37.0-47.0); Hemoglobin 10.9 g/dL (12.0-15.0); Immature Granulocyte Absolute 0.02 K/mm3 (0.00-0.031); Immature Granulocyte Percent A 0.3 % (0-0.5); Lymphocytes Absolute Auto 2.54 K/mm3 (0.9-3.2); Lymphocytes Percent Auto 39.3 % (18.3-44.2); Mean Corpuscular HGB Conc 32.7 g/dl (32-36); Mean Corpuscular Hemoglobin 29.1 pg (26-34); Mean Platelet Volume 10.6 fl (7.4-10.4); Monocytes Absolute Auto 0.7 K/mm3 (0.1-0.6); Monocytes Percent Auto 10.2 % (2.6-8.5); Neutrophils Absolute Auto 2.8 K/mm3 (1.3-6.7); Neutrophils Percent Auto 43.3 % (45.5-73.1); Platelet Count Result 197 k/mm3 (150-375); Red Blood Count 3.74 M/mm3 (4.2-5.4); White Blood Count 6.5 K/mm3 (4.5-10.0)
[2021-03-29 05:39] LABS: Alanine Aminotransferase 12 U/L (4-35); Albumin Level 3.3 g/dL (3.5-5.1); Alkaline Phosphatase 76 U/L (38-126); Anion Gap 6 mmol/L (8-16); Aspartate Amino Transferase 25 U/L (14-36); Bilirubin,Total 0.3 mg/dL (0.2-1.3); Blood Urea Nitrogen 16 mg/dL (7-17); Calcium 10.2 mg/dL (8.4-10.2); Carbon Dioxide 30 mmol/L (22-30); Chloride 105 mmol/L (98-107); Estimated CRCL calculation 34 ml/min; Estimated Glomerular Filt Rate 41; Glucose 89 mg/dL (65-110); Magnesium 2.6 mg/dL (1.6-2.3); Phosphorus 3.2 mg/dL (2.5-4.5); Potassium 3.9 mmol/L (3.4-5.0); Sodium 141 mmol/L (137-145)
[2021-03-29 07:08] LABS: Glucose Point of Care 62 mg/dl (65-105)
[2021-03-29 07:26] LABS: Glucose Point of Care 117 mg/dl (65-105)
--- NOTE | 2021-03-29 07:48 | PM.DS ---
DS: Admitting Diagnosis Discharge Date 03/29 Admitting Diagnosis chest pain DS: Discharge Diagnosis Discharge Diagnosis (1) ACS (acute coronary syndrome): Code(s): I24.9 - Acute ischemic heart disease, unspecified Status: Acute DS: Summary Hospital Course Hospital Course: Patient is a 75-year-old lady with hypertension peripheral arterial disease diabetes on insulin and suspected renal insufficiency presenting to [facility] on March 25 with complaints of exertional chest pain relieved with nitroglycerin, EKG showing ST abnormalities consistent with ischemia despite to negative for troponins, and a 3rd which was mildly elevated. Seen by Cardiology, believed to be non ST-elevation SC. Scheduled for cardiac catheterization. Findings included mild diffuse disease in the proximal LAD, 70-80% stenosis of the mid LAD, 70% stenosis of proximal segment of OM, 30-40% stenosis of the proximal RCA, 50-70% stenosis of the mid RCA. Overall left ventricular systolic function was preserved. During the procedure the mid LAD was stented, and patient is to be on dual antiplatelets for 1 year which was discussed with her. Given the extent of disease in other vessels, she will likely need further intervention in the future, this was discussed with her and plan should be made with import/export freight forwarder for further scheduled intervention. At time of discharge, she is improving well, and still having some mild pain, although markedly reduced from time of presentation. Seen by Cardiology, asymptomatic at that time. Creatinine is elevated, partly may be due to from procedure, however suspected chronic kidney disease, will obtain outpatient lab and have follow results with primary care provider and they can discuss need to be seen by icd 9 coder in the future. Discussed in detail that she should come to the emergency room immediately if chest pain returns as before or worsens. We will send her with nitroglycerin. Discussed she has also had body aches in the past on statin, but it is choice of therapy. Discussed with cardiology also, we try trial low dose statin for a month to see if she can tolerate. If not, then they can change to ezetimibe or CoQ10 or other alternatives as outpatient. Time spent discussing smoking cessation with patient: 3 to 10 minutes Status at Discharge Functional status at discharge: independent ambulation Overall status at discharge: patient is progressing back to baseline Time Spent with Patient Time attestation: Total time spent providing and/or coordinating discharge services: Time spent: Less than 30 minutes Exam Const: General: no acute distress Neck: Neck: no JVD Resp: Effort & Inspection: normal respiratory effort Auscultation: clear to auscultation bilaterally Cardio: Rate: regular rate Rhythm: regular rhythm GI: GI Palp: Yes Soft to palpation and No Tenderness to palpation present (GI) DS: Data Data Completed and Pending Labs on day of discharge: Labs from last 24 hours 03/29/21 03/29/21 03/29/21 07:23 07:00 04:49 WBC RBC Hgb Hct MCV MCH MCHC RDW Plt Count MPV Immature Gran % (Auto) Neut % (Auto) Lymph % (Auto) [place] % (Auto) Eos % (Auto) Baso % (Auto) Lymph # (Auto) [place] # (Auto) Eos # (Auto) Baso # (Auto) Abs Immat Gran (auto) Absolute Neuts (auto) Absolute Nucleated RBC Nucleated RBC % Sodium 141 Potassium 3.9 Chloride 105 Carbon Dioxide 30 Anion Gap 6 L BUN 16 Creatinine 1.50 H Estim Creat Clear Calc 34 Estimated GFR 41 L Glucose 89 POC Capillary Glucose 117 H 62 L Calcium 10.2 Phosphorus 3.2 Magnesium 2.6 H Total Bilirubin 0.3 AST 25 ALT 12 Alkaline Phosphatase 76 Total Protein 6.0 L Albumin 3.3 L 03/29/21 03/28/21 03/28/21 04:49 20:55 15:57 WBC 6.5 RBC 3.74 L Hgb 10.9 L Hct 33.3 L MCV 89.0 MCH 29.1 MCH
--- NOTE | 2021-03-29 08:43 | PM.PNCARD ---
Progress Note: A&P Assessment and Plan (1) Chest pain at rest: Code(s): R07.9 - Chest pain, unspecified Status: Acute Assessment and Plan: Concerning for unstable angina. She does have high blood pressure also which may be causing the pain but given the fact that she has had a recent stress test and yet recurrent classic symptoms that are worsened with activity and improved with rest or nitroglycerin, I think it is prudent to proceed with coronary angiogram to define her coronary anatomy. Angiogram revealed: 1. Mild diffuse disease proximal LAD; 70-80% diffuse stenosis mid LAD; 2. about 70% stenosis proximal segment of OM 1 branch; 3. 30-40% stenosis proximal RCA; 50-70% stenosis mid RCA distal to RV marginal branch 4. Preserved overall LV systolic function, EF about 60%, LVEDP 16 mmHg. Now s/p IVUS guided PCI- PTCA/stenting of diffuse stenosis in the mid LAD using a 3.5 x 26 mm Biotronik orsiro sirolimus eluting stent. Continue ASA Has h/o statin intolerance. Will decrease atorvastatin to 20mg daily. She follows with third steel pourer, Dr. Ledezma who can make further adjustments/modifications to her regimen if she is unable to tolerate this dose. ? outpatient Repatha Continue plavix Continue Isosorbide Continue losartan I instructed her to arrange follow up with her third steel pourer in 2-3 weeks. (2) Peripheral vascular disease: Code(s): I73.9 - Peripheral vascular disease, unspecified Status: Acute Assessment and Plan: As detailed above. (3) Hypertension associated with diabetes: Code(s): E11.59 - Type 2 diabetes mellitus with other circulatory complications; I15.2 - Hypertension secondary to endocrine disorders Status: Acute Assessment and Plan: Above goal. Continue carvedilol, losartan. Will increase nifedipine to 60 mg daily. (4) Hyperlipidemia associated with type 2 diabetes mellitus: Code(s): E11.69 - Type 2 diabetes mellitus with other specified complication; E78.5 - Hyperlipidemia, unspecified Status: Acute Assessment and Plan: Intolerant to statins. Outpatient Repatha would be advisable (5) CKD (chronic kidney disease) stage 3, GFR 30-59 ml/min: Code(s): N18.30 - Chronic kidney disease, stage 3 unspecified Status: Acute Assessment and Plan: Plan as above including IV hydration before and after catheterization. Creatinine 1.5 today which appears to be her baseline (6) Elevated troponin: Code(s): R77.8 - Other specified abnormalities of plasma proteins Status: Acute Assessment and Plan: Either related to underlying ischemic heart disease or marked hypertension. (7) Tobacco abuse: Code(s): Z72.0 - Tobacco use Status: Acute Assessment and Plan: Counseling performed Subjective Date/time seen: 03/29/21 08:43 Interval history: Follow-up visit in this 75-year-old lady with: Acute coronary syndrome with PCI of the LAD performed yesterday by Dr. Real. Target lesion result was very good patient apparently has some diffuse small-vessel disease as well. Date of service 03/29/2021: Eager for discharge today. She has not experienced any more chest pain at rest and states she worked with therapy yesterday and was free from chest pain. She tells me she did experience some chest discomfort last night when she got up to use the bathroom. Free from chest pain currently Review of Systems Review of Systems: All systems reviewed & are unremarkable except as noted in HPI and below Constitutional: Constitutional: Denies fatigue, Denies headache(s) and Denies weakness Eyes: Eyes: Denies blurry vision ENT: Reports Normal hearing present, Denies headache(s) and Denies neck pain Cardiovascular: Cardiovascular: Reports chest pain, Reports dyspnea and Reports dyspnea on exertion Respiratory: Respiratory: Reports dyspnea and Reports dyspnea on exertion Gastrointestinal: Gastrointestinal: Denies
[2021-03-29] MEDS: ASPIRIN 81 MG CHEWABLE TABLET PO (08:58)
[2021-03-29] MEDS: ATORVASTATIN 40 MG TABLET PO (08:59)
[2021-03-29] MEDS: carvediloL 25 MG TABLET PO (08:59)
[2021-03-29] MEDS: CLOPIDOGREL BISULFATE 75 MG TABLET PO (08:59)
[2021-03-29] MEDS: NIFEdipine 30 MG TAB.ER.24 60 MG PO (09:00)
[2021-03-29] MEDS: LOSARTAN POTASSIUM 100 MG TABLET PO (09:00)
[2021-03-29] MEDS: FAMOTIDINE 20 MG TABLET PO (09:00)
[2021-03-29] MEDS: ISOSORBIDE MONONITRATE 30 MG TAB.ER.24H PO (09:00)
[2021-03-29] MEDS: MECLIZINE HCL 25 MG TABLET PO (09:00)
[2021-03-29] MEDS: LACTATED RINGERS 1,000 ML 100 ML IV CONT (09:31)
[2021-03-29 12:26] LABS: Glucose Point of Care 100 mg/dl (65-105)
--- NOTE | 2021-03-29 13:45 | PC.NURSE ---
On 03/29/21, the student, [Adriana Kimbrough], provided care and completed [facility] documentation on this patient. I have reviewed the student's documentation and agree with the findings.
== END 2021-03-29 12:43 | disposition home or self-care (01) | DRG 247 ==
LOC: ANHED 23:45 → ANHIMU 03-26 00:36
PROVIDERS: Emergency Medicine; Internal Medicine Cardiovascular Disease; Admitting Provider Internal Medicine; Emergency Provider Emergency Medicine; Visit Provider Internal Medicine
PROC: 4A023N7 Measurement of Cardiac Sampling and Pressure, Left Heart, Percutaneous Approach (ICD-10-PCS; CPT 93452; principal; 2021-03-27 08:30)
PROC: 027034Z Dilation of Coronary Artery, One Artery with Drug-eluting Intraluminal Device, Percutaneous Approach (ICD-10-PCS; 2021-03-27 08:30)
PROC: 027034Z Dilation of Coronary Artery, One Artery with Drug-eluting Intraluminal Device, Percutaneous Approach (ICD-10-PCS; 2021-03-27 08:30)
PROC: 027034Z Dilation of Coronary Artery, One Artery with Drug-eluting Intraluminal Device, Percutaneous Approach (ICD-10-PCS; 2021-03-27 08:30)
DX: I24.9 Acute ischemic heart disease, unspecified (principal); I25.10 Atherosclerotic heart disease of native coronary artery without angina pectoris; E11.22 Type 2 diabetes mellitus with diabetic chronic kidney disease; I12.9 Hypertensive chronic kidney disease with stage 1 through stage 4 chronic kidney disease, or unspecified chronic kidney disease; N18.30 Chronic kidney disease, stage 3 unspecified; E11.40 Type 2 diabetes mellitus with diabetic neuropathy, unspecified; E11.51 Type 2 diabetes mellitus with diabetic peripheral angiopathy without gangrene; E11.59 Type 2 diabetes mellitus with other circulatory complications; I15.2 Hypertension secondary to endocrine disorders; E11.69 Type 2 diabetes mellitus with other specified complication; E78.5 Hyperlipidemia, unspecified; I70.1 Atherosclerosis of renal artery; R77.8 Other specified abnormalities of plasma proteins; G47.33 Obstructive sleep apnea (adult) (pediatric); J44.9 Chronic obstructive pulmonary disease, unspecified; Z66 Do not resuscitate; Z28.21 Immunization not carried out because of patient refusal; Z79.4 Long term (current) use of insulin; Z96.41 Presence of insulin pump (external) (internal); Z79.899 Other long term (current) drug therapy; Z87.891 Personal history of nicotine dependence
CPT/HCPCS: 36415; 71046; 80048; 80053; 80061; 80076; 82948; 83690; 83735; 84100; 84484; 85025; 85610; 85730; 92978; 93005; 93458; 96372; 96374; 96375; 99285; A9270; C1725; C1753; C1760; C1769; C1874; C1887; C1894; C9113; C9600; G0269; G0378; J0583; J1644; J1650; J2250; J2270; J2405; J3010; J7030; J7040; J7120

== ENCOUNTER 2021-11-01 09:15 | Outpatient (CLI) | payer MEDICARE, SELFPAY ==
--- NOTE | ~2021-11-01 | NM_ITS ---
EXAMINATION: NM maris stress w perfusion DATE: 11/01/2021 11:56 INDICATION: Coronary artery disease. TECHNIQUE: Rest images were obtained following intravenous administration of 10.2 mCi Tc99m tetrofosm in (Myoview). The patient was infused intravenously with Lexiscan (Regadenoson). Then, 32.6 mCi Tc99m tetrofosmin (Myoview) was administered intravenously, and stress images were obtained in the supine position. Repeat post stress imaging was done in the prone position. Data was reconstructed into shor t axis and horizontal and vertical long axis SPECT images. Gated SPECT images were also obtained. COMPARISON: None. FINDINGS: Likely artifactual decreased activity along the inferior side of the heart on the stress an d anterior side of the heart on the rest images with supine imaging. These defects disappear with pro ne imaging with no definite reversible or fixed perfusion abnormality on the prone post stress images to suggest ischemia or infarction. There is normal left ventricular chamber size, wall motion and e jection fraction. Left ventricular ejection fraction measures >70%. IMPRESSION: 1. Normal myocardial perfusion at rest and during stress. 2. Left ventricular ejection fraction measuring >70%. Reviewed, dictated and finalized at location B.
--- NOTE | 2021-11-01 09:20 | EST_ITS ---
Patient Info Name: Sony Ricardo Age: 76 years : 1945 Gender: Female Ht: 68 in Wt: 185 lbs BSA: 2.03 m2 HR: 63 bpm BP: 154 / 92 mmHg Heart Rhythm: Sinus Rhythm Exam Date: 11/01/2021 10:28 AM Exam Location: [facility] Stress Patient Status: Outpatient Admit Date: 11/01/2021 Staff Ordering Physician: Javier Dominguez PA-C Attending Provider: Javier Dominguez PA-C Exercise Technologist: Sherri Schmitz CT Exercise Physician: Marcos Salcido DO Exam Type: CA stress maris w NM Study Info Indications R06.02 - Shortness of breath A regadenoson stress test was performed. Summary 1. 1. Equivocal lexiscan stress test for ischemic ST changes with significant baseline T wave abnormalities. 2. 2. Baseline hypertension. 3. 3. Nuclear scan to follow and will be reported separately. Please correlate with it. 4. 4. Patient informed of the above results. Protocol: Lexiscan Stress ECG Details Stage: REST Duration (min): 14 min : 12 sec HR (bpm): 64 SBP (mmHg): 154 DBP (mmHg): 92 Stage: STAGE 1 Duration (min): 1 min : 0 sec HR (bpm): 86 SBP (mmHg): 162 DBP (mmHg): 79 Stage: RECOVERY Duration (min): 1 min : 0 sec HR (bpm): 79 SBP (mmHg): 162 DBP (mmHg): 79 Stage: RECOVERY Duration (min): 2 min : 0 sec HR (bpm): 76 SBP (mmHg): 162 DBP (mmHg): 79 Stage: RECOVERY Duration (min): 3 min : 0 sec HR (bpm): 72 SBP (mmHg): 165 DBP (mmHg): 71 Stage: RECOVERY Duration (min): 3 min : 10 sec HR (bpm): 74 SBP (mmHg): 165 DBP (mmHg): 71 Rest HR: 64 bpm Peak HR: 87 bpm Rest Sys BP: 154 mmHg Peak Sys BP: 165 mmHg Max Pred HR: 145 bpm % Max Pred HR: 60 % Target HR: 123 bpm Max RPP: 14,355 bpm*mmHg Termination Reason: Completed protocol Cardiac Symptoms: Shortness of breath Total Time: 1 min : 0 sec Rest Blackmon BP: 92 mmHg Peak Blackmon BP: 71 mmHg Total Dose: 0.4 mg Resting ECG Sinus rhythm, T wave abnormality in inf/lat leads- consider ischemia. Stress ECG No ST changes. Arrhythmias None. Report Signatures
== END 2021-11-01 09:16 | disposition home or self-care (01) ==
PROVIDERS: PCP Physician Assistant; Visit Provider Physician Assistant
DX: R06.2 Wheezing (principal); I25.10 Atherosclerotic heart disease of native coronary artery without angina pectoris; N18.4 Chronic kidney disease, stage 4 (severe); R07.89 Other chest pain; G47.30 Sleep apnea, unspecified; E11.9 Type 2 diabetes mellitus without complications; J44.9 Chronic obstructive pulmonary disease, unspecified; E78.5 Hyperlipidemia, unspecified
CPT/HCPCS: 78452; 93017; A9502; J2785

== ENCOUNTER 2021-11-19 09:15 | Outpatient (CLI) | payer MEDICARE, SELFPAY ==
--- NOTE | ~2021-11-19 | US_ITS ---
EXAMINATION: US carotid duplex BI DATE: 11/19/2021 11:21 INDICATION: Dizziness and giddiness. Peripheral arterial occlusive disease. Differential brachial pre ssures suggesting possible right-sided subclavian artery stenosis on prior ultrasound. TECHNIQUE: Grayscale, color Doppler, and pulsed Doppler images of the cervical carotid arteries were obtained. The degree of vessel stenosis is placed in one of the following categories: normal, <50%, 5 0-69%, >=70% but less than near-occlusion, near-occlusion, or total occlusion. Note that percent sten osis relative to normal distal artery lumen diameter is indirectly measured from velocity measurement s as described by Matt, et al. Radiology 2003; 229:340-346. COMPARISON: None. FINDINGS: RIGHT: The right common carotid artery (CCA) peak systolic velocity (PSV) is 79 cm/s. The right internal car otid artery (ICA) PSV is 60 cm/s. The right ICA end-diastolic velocity (EDV) is 19 cm/s. The right IC A/CCA PSV ratio is 0.8. Grayscale and color Doppler images yield an estimate of <50% diameter reducti on from plaque in the ICA. The external carotid artery (ECA) PSV is 141 cm/s. There is antegrade flow in the right vertebral artery. LEFT: The left CCA PSV is 81 cm/s. The left ICA PSV is 60 cm/s. The left ICA EDV is 23 cm/s. The left ICA/C CA PSV ratio is 0.7. Grayscale and color Doppler images yield an estimate of <50% diameter reduction from plaque in the ICA. The ECA PSV is 94 cm/s. There is antegrade flow in the left vertebral artery. IMPRESSION: 1. <50% stenosis in the right internal carotid artery. 2. <50% stenosis in the left internal carotid artery. Reviewed, dictated and finalized at location B.
== END 2021-11-19 09:16 | disposition home or self-care (01) ==
PROVIDERS: PCP Physician Assistant; Visit Provider Physician Assistant
DX: R42 Dizziness and giddiness (principal); R51.9 Headache, unspecified; I65.23 Occlusion and stenosis of bilateral carotid arteries
CPT/HCPCS: 93880

== ENCOUNTER 2022-04-04 11:19 | Outpatient (CLI) | payer MEDICARE, SELFPAY ==
--- NOTE | ~2022-04-04 | XR_ITS ---
XR cervical spine 4-5V DATE: 04/04/2022 11:53 INDICATION: Neck pain. No trauma. TECHNIQUE: AP, open-mouth, lateral and swimmer views COMPARISON: None FINDINGS: There is straightening of the cervical spine which may be due to muscle spasm. C1 and C2 ar e normally aligned and the odontoid process is intact. No fracture or dislocation or locked facet or prevertebral soft tissue swelling. There is 2.3 mm anterolisthesis at C4-5. There is anterior spurring at C3-4. The C4-5. There is moderately severe degenerative disc disease at C5-6 and severe degenerative disc disease at C6-7. There is prominent degenerative change at the cervical apophyseal joints. IMPRESSION: Straightening of the cervical spines: No fracture, dislocation or locked facet is detecte d 2.3 mm anterolisthesis at C4-5 Prominent degenerative disease at C5-6 and particularly C6-7, degenerative changes apophyseal joints Reviewed, dictated and finalized at location A. IMPRESSION: Straightening of the cervical spines: No fracture, dislocation or l ocked facet is detected 2.3 mm anterolisthesis at C4-5 Prominent degenerative disease at C5-6 and particularly C6-7, degenerative fishman ges apophyseal joints
== END 2022-04-04 11:20 | disposition home or self-care (01) ==
LOC: ANHIMG 11:21
PROVIDERS: PCP Physician Assistant; Visit Provider Physician Assistant
DX: M50.323 Other cervical disc degeneration at C6-C7 level (principal); M50.322 Other cervical disc degeneration at C5-C6 level
CPT/HCPCS: 72050

== ENCOUNTER 2022-05-15 01:58 | Day surgery (SDC) | payer MEDICARE, SELFPAY ==
[2022-04-22 12:05] VITALS: BMI 28.9
[2022-05-15 06:24] VITALS: BP 96/50; PULSE 89; RESP 18; TEMP 36.6; O2SAT 100; BMI 27.6
[2022-05-15] MEDS: LACTATED RINGERS 1,000 ML 150 ML IV CONT (06:39)
[2022-05-15 06:46] LABS: Glucose Point of Care 95 mg/dl (65-105)
--- NOTE | 2022-05-15 08:26 | WPDANESEPPF ---
Anes - Initial Pre Proc Eval Procedure: Operation Date: 05/15/22 07:30 Proposed Procedures p Screening Colonoscopy - Darci Mederos MD Date/Time: 05/15/22 08:26 Surgeon: Darci Mederos MD Pre Op Diagnosis: fam hx colon cancer Patient Data Age: 77 Gender: F Height: 1.73 m Weight: 82.3 kg Last Vital Signs Temp 97.9 F 05/15/22 06:24 Pulse 89 05/15/22 06:24 Resp 18 05/15/22 06:24 BP 96/50 L 05/15/22 06:24 Pulse Ox 100 05/15/22 06:24 O2 Del Method Room Air 05/15/22 06:24 Allergies Allergy/AdvReac Type Severity Reaction Status Date / Time meperidine [From Demerol] Allergy Hives Verified 04/04/22 10:31 Pork/Porcine Containing Allergy Nausea and Verified 04/22/22 11:52 Products Vomiting erythromycin base AdvReac make heart Verified 04/04/22 10:31 flip/flop Tmrmlyn-[id number]-NwQ Reductase AdvReac body pain Verified 04/04/22 10:31 Inhibitor Home Medications Medication Instructions Recorded Confirmed Type clopidogrel 75 mg tablet 75 mg PO DAILY 04/21/20 04/22/22 History losartan 100 mg tablet 100 mg PO DAILY 04/21/20 04/22/22 History aspirin 81 mg chewable tablet 81 mg PO DAILY@0800 30 days #30 03/28/21 04/22/22 Rx (Children's Aspirin) tabs nitroglycerin 0.6 mg sublingual 0.6 mg sublingual Q5M PRN chest 03/29/21 04/22/22 Rx tablet pain #30 tabs carvedilol 25 mg tablet 25 mg PO Q12H #180 tabs 11/19/21 04/22/22 Rx cyclobenzaprine 10 mg tablet 10 mg PO QHS PRN muscle spasm #90 11/19/21 04/22/22 Rx tabs spironolactone 25 mg tablet 25 mg PO DAILY 04/04/22 04/22/22 History chlorthalidone 25 mg tablet 25 mg PO DAILY 04/05/22 04/22/22 History insulin aspart U-100 100 unit/mL 1 sliding scale dose subcut 04/22/22 04/22/22 History subcutaneous solution (Novolog USEASDIRECTD U-100 Insulin aspart) Laboratory Tests 05/15/22 06:43 POC Capillary Glucose 95 mg/dl mg/dl (65-105) Patient hx anesthesia problems: none Family hx anesthesia problems: none Results Review: All pre-operative results and documents have been reviewed as part of the pre-operative evaluation. [facility] Past Medical History Medical History (Updated 04/06/22 @ 10:08 by Javier Dominguez PA-C) Bilateral atherosclerotic renal artery stenosis Chronic kidney disease, stage 3 COPD (chronic obstructive pulmonary disease) Diabetes Hemoglobin A1c 6.5 % March 2021 Diabetic nephropathy Diabetic neuropathy High cholesterol Intolerant to statins History of stent insertion of renal artery Hx of myocardial infarction Hypertension IBS (irritable bowel syndrome) Kidney disease Left knee DJD Obstructive sleep apnea Intolerant to CPAP Peripheral artery disease Right knee pain Surgical History Surgical History History of carpal tunnel release History of hysterectomy History of vascular surgery Bilateral lower extremity stents Hx of cholecystectomy Family History Family History Father Colon cancer Mother Hypertension Heart disease Grandparent Breast cancer Other Diabetes mellitus Social History Social History Social History: She lives at home alone. She ambulates with a walker due to her knee pain. She is independent activities of daily living. she has 5 adult children who reportedly healthy. She is a former smoker. She smoked 1 pack of cigarettes per day for 20 years. She stopped smoking in 1994. She does not drink alcohol or use illicit substances. She is retired from the post office. Primary care physician: Dr. Izabela Donovan Code status: DNR Healthcare power of document review attorney: Denia Holbrook Smoking packs per day: 1 Smoking cigarettes per day: 20.0 Years smoked: 15 Smoking pack-years: 15.00 Smoking status: Former smoker Alcohol intake: current Subs
--- NOTE | 2022-05-15 08:47 | PM.HPGS ---
History of Present Illness History of Present Illness Consent: Risks, benefits, and alternatives have been discussed and questions answered. Patient agrees to proceed with procedure. Chief complaint: fam hx colon cancer Narrative: Sony Ricardo is a 77 year old female with colon polyp 5 years ago and father had colon cancer. She also has GERD and lately more symptomatic Review of Systems Constitutional: Constitutional: Denies headache(s) and Denies weakness Eyes: Eyes: Denies blurry vision ENT: Reports Normal hearing present, Denies headache(s) and Denies neck pain Cardiovascular: Cardiovascular: Denies chest pain and Denies dyspnea Respiratory: Respiratory: Denies dyspnea Gastrointestinal: Gastrointestinal: Reports no additional gastrointestinal complaints Genitourinary: Genitourinary: Denies dysuria Musculoskeletal: Musculoskeletal: Denies neck pain Integumentary/Breasts: Skin/Breast: Denies dry skin Neurologic: Reports Normal hearing present, Denies headache(s) and Denies weakness Psychiatric: Psychiatric: Denies anxiety Endocrine: Endocrine: Denies change in body appearance Hematologic/Lymphatic: Hematologic/Lymphatic: Denies easy bleeding Allergic/Immunologic: Allergic/Immunologic: Denies urticaria PMF Past Medical History Medical History (Updated 05/15/22 @ 08:48 by Darci Mederos MD) Bilateral atherosclerotic renal artery stenosis Chronic kidney disease, stage 3 Colon polyp COPD (chronic obstructive pulmonary disease) Diabetes Hemoglobin A1c 6.5 % March 2021 Diabetic nephropathy Diabetic neuropathy Family history of colon cancer in father High cholesterol Intolerant to statins History of stent insertion of renal artery Hx of myocardial infarction Hypertension IBS (irritable bowel syndrome) Kidney disease Left knee DJD Obstructive sleep apnea Intolerant to CPAP Peripheral artery disease Right knee pain Surgical History Surgical History History of carpal tunnel release History of hysterectomy History of vascular surgery Bilateral lower extremity stents Hx of cholecystectomy Family History Family History Father Colon cancer Mother Hypertension Heart disease Grandparent Breast cancer Other Diabetes mellitus Social History Social History Social History: She lives at home alone. She ambulates with a walker due to her knee pain. She is independent activities of daily living. she has 5 adult children who reportedly healthy. She is a former smoker. She smoked 1 pack of cigarettes per day for 20 years. She stopped smoking in 1994. She does not drink alcohol or use illicit substances. She is retired from the post office. Primary care physician: Dr. Iazbela Donovan Code status: DNR Healthcare power of litigation attorney associate: Denia Holbrook Smoking packs per day: 1 Smoking cigarettes per day: 20.0 Years smoked: 15 Smoking pack-years: 15.00 Smoking status: Former smoker Alcohol intake: current Substance use type: does not use Lack of Transportation: No Lack of Food: Never True Current Housing: I Have Housing Concerned About Future Housing: No Difficulty Paying Gas/Electric Bills: No Difficulty Paying for Meds: YES Currently Unemployed: No Education: High School Diploma/GED Difficulty w/ Childcare or Family Care: No Spiritual care concerns: No Meds Home Medications and Allergies Home Medications Medication Instructions Recorded Confirmed Type clopidogrel 75 mg tablet 75 mg PO DAILY 04/21/20 04/22/22 History losartan 100 mg tablet 100 mg PO DAILY 04/21/20 04/22/22 History aspirin 81 mg chewable tablet 81 mg PO DAILY@0800 30 days #30 03/28/21 04/22/22 Rx (Children's Aspirin) tabs nitroglycerin 0.6 mg sublingual 0.6 mg sublingual Q5M PRN
[2022-05-15 09:13] VITALS: BP 87/45; PULSE 64; RESP 13; O2SAT 96
[2022-05-15 09:23] VITALS: BP 91/46; PULSE 58; RESP 15; O2SAT 100
[2022-05-15 09:37] LABS: Glucose Point of Care 75 mg/dl (65-105)
== END 2022-05-15 09:53 | disposition home or self-care (01) ==
PROVIDERS: PCP Physician Assistant; Visit Provider Internal Medicine Gastroenterology
PROC: 0DJD8ZZ Inspection of Lower Intestinal Tract, Via Natural or Artificial Opening Endoscopic (ICD-10-PCS; CPT 45378; principal; 2022-05-15 07:30)
DX: Z12.11 Encounter for screening for malignant neoplasm of colon (principal); K57.30 Diverticulosis of large intestine without perforation or abscess without bleeding; D12.2 Benign neoplasm of ascending colon; Z80.0 Family history of malignant neoplasm of digestive organs; I12.9 Hypertensive chronic kidney disease with stage 1 through stage 4 chronic kidney disease, or unspecified chronic kidney disease; E11.22 Type 2 diabetes mellitus with diabetic chronic kidney disease; N18.30 Chronic kidney disease, stage 3 unspecified; J44.9 Chronic obstructive pulmonary disease, unspecified; K21.9 Gastro-esophageal reflux disease without esophagitis; E11.40 Type 2 diabetes mellitus with diabetic neuropathy, unspecified; E11.21 Type 2 diabetes mellitus with diabetic nephropathy; E78.00 Pure hypercholesterolemia, unspecified; I25.10 Atherosclerotic heart disease of native coronary artery without angina pectoris; I25.2 Old myocardial infarction; G47.33 Obstructive sleep apnea (adult) (pediatric); E11.51 Type 2 diabetes mellitus with diabetic peripheral angiopathy without gangrene; Z95.820 Peripheral vascular angioplasty status with implants and grafts; Z87.891 Personal history of nicotine dependence; Z79.02 Long term (current) use of antithrombotics/antiplatelets; Z79.82 Long term (current) use of aspirin; Z79.4 Long term (current) use of insulin
CPT/HCPCS: 45385; 82948; 88305; J2704; J7120

== ENCOUNTER 2022-06-19 09:17 | Outpatient (CLI) | payer MEDICARE, SELFPAY ==
--- NOTE | ~2022-06-19 | US_ITS ---
EXAMINATION: US retroperitoneal duplex ltd DATE: 06/19/2022 10:36 INDICATION: Retention. Diabetes. TECHNIQUE: Multiple grayscale, color Doppler, and pulsed Doppler images of the kidneys and renal dahiana minh were obtained. COMPARISON: None. FINDINGS: The aorta peak systolic velocity is 201 cm/s. The right kidney measures 11.9 x 5.0 x 4.9 cm with no h ydronephrosis. 5.2 similar anechoic right renal cyst. The right renal artery peak systolic velocity i s 119 cm/s in the proximal segment, 66 cm/s in the mid segment, and 50 cm/s in the distal segment. Th e left kidney measures 9.2 x 4.5 x 4.6 similar without hydronephrosis. The left renal artery peak sys tolic velocity is 69 cm/s in the proximal segment, 59 cm/s in the mid segment, and 35 cm/s in the dis slim segment. IMPRESSION: 1. No Doppler evidence of renal artery stenosis. Reviewed, dictated and finalized at location A. [employer]
== END 2022-06-19 09:18 | disposition home or self-care (01) ==
PROVIDERS: PCP Physician Assistant; Visit Provider Internal Medicine Nephrology
DX: I73.9 Peripheral vascular disease, unspecified (principal); I25.84 Coronary atherosclerosis due to calcified coronary lesion; E11.22 Type 2 diabetes mellitus with diabetic chronic kidney disease; I12.9 Hypertensive chronic kidney disease with stage 1 through stage 4 chronic kidney disease, or unspecified chronic kidney disease; E83.52 Hypercalcemia; E78.00 Pure hypercholesterolemia, unspecified
CPT/HCPCS: 93976

== ENCOUNTER 2022-07-09 01:31 | Day surgery (SDC) | payer MEDICARE, SELFPAY ==
[2022-06-27 14:29] VITALS: BMI 27.6
[2022-07-09 07:53] VITALS: BP 127/58; PULSE 88; RESP 17; TEMP 36.6; O2SAT 99; BMI 28.0
[2022-07-09] MEDS: LACTATED RINGERS 1,000 ML 150 ML IV CONT (08:05)
[2022-07-09 08:07] LABS: Glucose Point of Care 144 mg/dl (65-105)
--- NOTE | 2022-07-09 08:19 | WPDANESEPPF ---
Anes - Initial Pre Proc Eval Procedure: Operation Date: 07/09/22 09:00 Proposed Procedures p Esophagogastroduodenoscopy - Darci Mederos MD Date/Time: 07/09/22 08:19 Surgeon: Darci Mederos MD Pre Op Diagnosis: GERD Patient Data Age: 77 Gender: F Height: 1.73 m Weight: 83.6 kg Last Vital Signs Temp 97.8 F 07/09/22 07:53 Pulse 88 07/09/22 07:53 Resp 17 07/09/22 07:53 BP 127/58 L 07/09/22 07:53 Pulse Ox 99 07/09/22 07:53 O2 Del Method Room Air 07/09/22 07:53 Allergies Allergy/AdvReac Type Severity Reaction Status Date / Time erythromycin base Allergy Intermediate make heart Verified 07/09/22 07:52 flip/flop meperidine [From Demerol] Allergy Intermediate Hives Verified 07/09/22 07:52 Pork/Porcine Containing Allergy Intermediate Hypertensio Verified 07/09/22 07:52 Products n Uzaogll-YZU-SeB Reductase AdvReac Intermediate body pain Verified 07/09/22 07:52 Inhibitor Home Medications Medication Instructions Recorded Confirmed Type clopidogrel 75 mg tablet 75 mg PO DAILY 04/21/20 07/09/22 History losartan 100 mg tablet 100 mg PO DAILY 04/21/20 07/09/22 History nitroglycerin 0.6 mg sublingual 0.6 mg sublingual Q5M PRN chest 03/29/21 07/09/22 Rx tablet pain #30 tabs carvedilol 25 mg tablet 25 mg PO Q12H #180 tabs 11/19/21 07/09/22 Rx cyclobenzaprine 10 mg tablet 10 mg PO QHS PRN muscle spasm #90 11/19/21 07/09/22 Rx tabs spironolactone 25 mg tablet 25 mg PO DAILY 04/04/22 07/09/22 History chlorthalidone 25 mg tablet 25 mg PO DAILY 04/05/22 07/09/22 History insulin aspart U-100 100 unit/mL See Rx Instructions .Route .COMPLEX 06/25/22 07/09/22 History subcutaneous solution (Novolog U-100 Insulin aspart) meclizine 25 mg tablet 25 mg PO DAILY PRN Dizziness 06/25/22 07/09/22 History multivit with 1 tablet PO DAILY 06/25/22 07/09/22 History hrnmnmdp-wxka-NC-lutein 8 mg iron-400 mcg-300 mcg tablet (Centrum Silver Women) nifedipine 60 mg tablet,extended 30 mg PO DAILY 06/25/22 07/09/22 History release aspirin 81 mg chewable tablet 81 mg PO BID 06/27/22 07/09/22 History (Children's Aspirin) blood-glucose sensor (Dexcom G6 #3 ea 07/03/22 07/09/22 Rx Sensor device) blood-glucose transmitter (Dexcom #2 ea 07/03/22 07/09/22 Rx G6 Transmitter device) Laboratory Tests 07/09/22 08:04 POC Capillary Glucose 144 mg/dl H mg/dl (65-105) Patient hx anesthesia problems: none Family hx anesthesia problems: none Results Review: All pre-operative results and documents have been reviewed as part of the pre-operative evaluation. [facility] Past Medical History Medical History Bilateral atherosclerotic renal artery stenosis Carpal tunnel syndrome on both sides CKD stage 4 due to type 2 diabetes mellitus Colon polyp COPD (chronic obstructive pulmonary disease) Diabetes Hemoglobin A1c 6.5 % March 2021 Diabetic nephropathy Diabetic neuropathy Family history of colon cancer in father High cholesterol Intolerant to statins History of stent insertion of renal artery Hypertension IBS (irritable bowel syndrome) Kidney disease Left knee DJD Obstructive sleep apnea Intolerant to CPAP Peripheral artery disease Right knee pain Type 2 diabetes mellitus Surgical History Surgical History H/O heart artery stent 03/2022 History of ankle surgery 1996, right ankle History of carpal tunnel release 1989, bilateral History of hysterectomy 1988, partial History of renal stent 03/2022 History of vascular surgery 2017, Bilateral lower extremity stents Hx of cholecystectomy 2005 Family History Family History Father Colon cancer Mother Hypertension Heart disease Grandparent Breast cancer Sibling Diabetes mellitus brother, sister Co
--- NOTE | 2022-07-09 08:42 | PM.HPGS ---
History of Present Illness History of Present Illness Consent: Risks, benefits, and alternatives have been discussed and questions answered. Patient agrees to proceed with procedure. Chief complaint: GERD Narrative: Sony Ricardo is a 77 year old female with more gerd symptoms and nausea, she is not using ppi. Had EGD but several years ago. Review of Systems Constitutional: Constitutional: Denies headache(s) and Denies weakness Eyes: Eyes: Denies blurry vision ENT: Reports Normal hearing present, Denies headache(s) and Denies neck pain Cardiovascular: Cardiovascular: Denies chest pain and Denies dyspnea Respiratory: Respiratory: Denies dyspnea Gastrointestinal: Gastrointestinal: Reports no additional gastrointestinal complaints Genitourinary: Genitourinary: Denies dysuria Musculoskeletal: Musculoskeletal: Denies neck pain Integumentary/Breasts: Skin/Breast: Denies dry skin Neurologic: Reports Normal hearing present, Denies headache(s) and Denies weakness Psychiatric: Psychiatric: Denies anxiety Endocrine: Endocrine: Denies change in body appearance Hematologic/Lymphatic: Hematologic/Lymphatic: Denies easy bleeding Allergic/Immunologic: Allergic/Immunologic: Denies urticaria PMFSH Past Medical History Medical History Bilateral atherosclerotic renal artery stenosis Carpal tunnel syndrome on both sides CKD stage 4 due to type 2 diabetes mellitus Colon polyp COPD (chronic obstructive pulmonary disease) Diabetes Hemoglobin A1c 6.5 % March 2021 Diabetic nephropathy Diabetic neuropathy Family history of colon cancer in father High cholesterol Intolerant to statins History of stent insertion of renal artery Hypertension IBS (irritable bowel syndrome) Kidney disease Left knee DJD Obstructive sleep apnea Intolerant to CPAP Peripheral artery disease Right knee pain Type 2 diabetes mellitus Surgical History Surgical History H/O heart artery stent 03/2022 History of ankle surgery 1996, right ankle History of carpal tunnel release 1989, bilateral History of hysterectomy 1988, partial History of renal stent 03/2022 History of vascular surgery 2017, Bilateral lower extremity stents Hx of cholecystectomy 2005 Family History Family History Father Colon cancer Mother Hypertension Heart disease Grandparent Breast cancer Sibling Diabetes mellitus brother, sister Colon cancer brother Son Diabetes mellitus Pancreatic cancer Daughter Hypertension Colon cancer Social History Social History Social History: She lives at home alone. She ambulates with a walker due to her knee pain. She is independent activities of daily living. she has 5 adult children who reportedly healthy. She is a former smoker. She smoked 1 pack of cigarettes per day for 20 years. She stopped smoking in 1994. She does not drink alcohol or use illicit substances. She is retired from the [employer]. Primary care physician: Dr. Izabela Donovan Code status: DNR [facility] power of real estate sales supervisor: Denia Holbrook Smoking packs per day: 1 Smoking cigarettes per day: 20.0 Years smoked: 15 Smoking pack-years: 15.00 Smoking status: Former smoker Tobacco type: cigarettes Alcohol intake: never Substance use: never Substance use type: does not use Lack of Transportation: No Lack of Food: Never True Current Housing: I Have Housing Concerned About Future Housing: No Difficulty Paying Gas/Electric Bills: No Difficulty Paying for Meds: YES Currently Unemployed: No Education: High School Diploma/GED Difficulty w/ Childcare or Family Care: No Living arrangements: with family Spiritual care concerns: No Meds Home Medications and All
[2022-07-09 08:55] VITALS: BP 114/45; PULSE 58; RESP 21; O2SAT 93
[2022-07-09 09:05] VITALS: BP 119/64; PULSE 54; RESP 25; O2SAT 95
[2022-07-09 09:15] VITALS: BP 119/62; PULSE 59; RESP 21; O2SAT 92
== END 2022-07-09 09:19 | disposition home or self-care (01) ==
PROVIDERS: PCP Physician Assistant; Visit Provider Internal Medicine Gastroenterology
PROC: 0DJ08ZZ Inspection of Upper Intestinal Tract, Via Natural or Artificial Opening Endoscopic (ICD-10-PCS; CPT 43235; principal; 2022-07-09 09:00)
DX: K21.9 Gastro-esophageal reflux disease without esophagitis (principal); K22.2 Esophageal obstruction; K44.9 Diaphragmatic hernia without obstruction or gangrene; I12.9 Hypertensive chronic kidney disease with stage 1 through stage 4 chronic kidney disease, or unspecified chronic kidney disease; E11.22 Type 2 diabetes mellitus with diabetic chronic kidney disease; N18.4 Chronic kidney disease, stage 4 (severe); E11.51 Type 2 diabetes mellitus with diabetic peripheral angiopathy without gangrene; E11.40 Type 2 diabetes mellitus with diabetic neuropathy, unspecified; E11.21 Type 2 diabetes mellitus with diabetic nephropathy; J44.9 Chronic obstructive pulmonary disease, unspecified; E78.00 Pure hypercholesterolemia, unspecified; G47.33 Obstructive sleep apnea (adult) (pediatric); K58.9 Irritable bowel syndrome, unspecified; Z95.5 Presence of coronary angioplasty implant and graft; Z95.820 Peripheral vascular angioplasty status with implants and grafts; Z87.891 Personal history of nicotine dependence; Z79.02 Long term (current) use of antithrombotics/antiplatelets; Z79.4 Long term (current) use of insulin; Z79.82 Long term (current) use of aspirin
CPT/HCPCS: 43239; 43249; 82948; 88305; C1726; J2704; J7120

== ENCOUNTER 2022-07-15 11:42 | Outpatient (CLI) | payer MEDICARE, SELFPAY ==
--- NOTE | ~2022-07-15 | XR_ITS ---
EXAMINATION: XR shoulder RT min 2V DATE: 07/15/2022 11:59 INDICATION: Right shoulder pain. TECHNIQUE: 4 views of right shoulder were obtained. COMPARISON: None. FINDINGS: Bone alignment is normal. No fracture. There is mild osteoarthritis of glenohumeral joint a nd acromioclavicular joint. IMPRESSION: 1. Mild polyarticular osteoarthritis. Reviewed, dictated and finalized at location A. LLMENT SPECIALIST
== END 2022-07-15 11:43 | disposition home or self-care (01) ==
LOC: ANHIMG 11:44
PROVIDERS: PCP Physician Assistant; Visit Provider Physician Assistant
DX: M19.011 Primary osteoarthritis, right shoulder (principal)
CPT/HCPCS: 73030

== ENCOUNTER 2022-07-30 13:13 | Outpatient (CLI) | payer MEDICARE, SELFPAY ==
--- NOTE | ~2022-07-30 | CT_ITS ---
EXAMINATION: CT abdomen pelvis wo con DATE: 07/30/2022 14:07 INDICATION: Mid abdominal pain for 4-5 months TECHNIQUE: Computed tomography (CT) of the abdomen and pelvis was performed without intravenous contr ast. The dose-length product was 713.22 mGy-cm. Automated exposure control and iterative reconstructi on technique were employed. COMPARISON: None. FINDINGS: There is dependent atelectasis. Heart size normal. No significant pleural or pericardial ef fusion. Status post cholecystectomy. The liver, spleen, pancreas, adrenal glands and left kidney are unremarkable. There is a 4.6 cm right renal cyst. Nonobstructive bowel gas pattern. Small hiatal cristino ia. Colonic diverticulosis without evidence for diverticulitis. There is an intramuscular lipoma just lateral to the left hip and femur. No free air or free fluid. No lymphadenopathy. There is moderate lumbar spondylosis most advanced at L5-S1. There is dextroscoliosis of the lumbar spine. There is mil d bilateral osteoarthritis of the hips. IMPRESSION: 1. No acute abdominal abnormality. Reviewed, dictated and finalized at location L. EAR MEDICAL TECH
== END 2022-07-30 13:14 | disposition home or self-care (01) ==
PROVIDERS: PCP Physician Assistant; Visit Provider Physician Assistant
DX: R10.9 Unspecified abdominal pain (principal)
CPT/HCPCS: 74176

== ENCOUNTER 2022-09-24 10:47 | Outpatient (CLI) | payer MEDICARE, SELFPAY ==
--- NOTE | 2022-09-24 11:12 | ECG_ITS ---
Measurements Intervals [place] Rate: 74 P: 73 NE: 155 QRS: -36 QRSD: 96 T: 155 QT: 396 QTc: 441 Interpretive Statements SINUS RHYTHM LEFT VENTRICULAR HYPERTROPHY ST AND T-WAVE ABNORMALITY LATERALLY IS CONSIDER HYPERTROPHY VERSUS ISCHEMIA INFERIOR MYOCARDIAL INFARCTION , PROBABLY OLD [40+ ms Q WAVE AND/OR ST/T ABNORMALITY IN II/aVF] ABNORMAL ECG Electronically Signed On 09-24-2022 14:42:49 CDT by Yung Gamino M.D.
[2022-09-24 11:26] LABS: Basophils Percent Auto 0.4 % (0.2-1.2); Eosinophils Absolute Auto 0.3 K/mm3 (0-0.3); Eosinophils Percent Auto 5.2 % (0-4.4); Hematocrit 39.7 % (37.0-47.0); Immature Granulocyte Absolute 0.01 K/mm3 (0.00-0.031); Immature Granulocyte Percent A 0.2 % (0-0.5); Lymphocytes Absolute Auto 2.55 K/mm3 (0.9-3.2); Lymphocytes Percent Auto 45.5 % (18.3-44.2); Mean Corpuscular HGB Conc 32.7 g/dl (32-36); Mean Corpuscular Hemoglobin 30.2 pg (26-34); Mean Corpuscular Volume 92.3 fl (80-100); Mean Platelet Volume 10.1 fl (7.4-10.4); Monocytes Absolute Auto 0.4 K/mm3 (0.1-0.6); Monocytes Percent Auto 6.8 % (2.6-8.5); Neutrophils Absolute Auto 2.4 K/mm3 (1.3-6.7); Neutrophils Percent Auto 41.9 % (45.5-73.1); Platelet Count Result 226 k/mm3 (150-375); Red Cell Distribution Width 13.8 % (11.5-14.5); White Blood Count 5.6 K/mm3 (4.5-10.0)
[2022-09-24 11:27] LABS: Appearance Urine Clear (Clear); Bilirubin Urine Negative (Negative); Blood Urine Negative (Negative); Color Urine Yellow (Yellow); Glucose Urine UA Negative (Negative); Ketones Urine Negative (Negative); Leukocyte Esterase Ur Negative LEU/UL (Negative); Nitrate Urine Negative (Negative); Protein Urine Negative (Negative); Urobilinogen Urine 0.2 mg/dL (<2.0); pH Urine 5.5 (5.0-9.0)
[2022-09-24 11:35] LABS: Add Urine Microscopic? NO
[2022-09-24 12:06] LABS: Anion Gap 8 mmol/L (8-16); Blood Urea Nitrogen 22 mg/dL (7-17); Calcium 9.5 mg/dL (8.4-10.2); Carbon Dioxide 29 mmol/L (22-30); Chloride 102 mmol/L (98-107); Estimated Glomerular Filt Rate 33; Glucose 136 mg/dL (65-110); Potassium 3.8 mmol/L (3.4-5.0); Sodium 139 mmol/L (137-145)
== END 2022-09-24 10:48 | disposition home or self-care (01) ==
LOC: ANHLAB 10:48
PROVIDERS: PCP Physician Assistant; Visit Provider Orthopaedic Surgery
DX: E11.59 Type 2 diabetes mellitus with other circulatory complications (principal); I15.2 Hypertension secondary to endocrine disorders; N18.30 Chronic kidney disease, stage 3 unspecified; M17.12 Unilateral primary osteoarthritis, left knee; E11.8 Type 2 diabetes mellitus with unspecified complications
CPT/HCPCS: 36415; 80048; 81003; 85025; 93005

== ENCOUNTER 2022-09-25 15:29 | Outpatient (CLI) | payer MEDICARE, SELFPAY | END 2022-09-25 15:30 | disposition home or self-care (01) | LOC: ANHLAB 15:30 | PROVIDERS: PCP Physician Assistant; Visit Provider Physician Assistant | DX: Z01.83 Encounter for blood typing (principal) | CPT/HCPCS: 36415; 86850; 86900; 86901 ==

== ENCOUNTER 2022-10-09 14:30 | Outpatient (RCR) | payer MEDICARE, SELFPAY ==
[2022-09-03 10:19] VITALS: BMI 27.9
[2022-09-03 10:34] VITALS: BMI 27.9
== END 2022-11-18 08:39 | disposition home or self-care (01) ==
LOC: ANHDMC 14:30
PROVIDERS: PCP Physician Assistant; Visit Provider Internal Medicine
DX: E11.9 Type 2 diabetes mellitus without complications (principal); Z71.3 Dietary counseling and surveillance; Z71.89 Other specified counseling
CPT/HCPCS: 97802; G0108; G0109

== ENCOUNTER 2023-01-13 13:06 | Outpatient (CLI) | payer MEDICARE, SELFPAY ==
--- NOTE | ~2023-01-13 | CT_ITS ---
EXAMINATION: CT abdomen pelvis wo con DATE: 01/13/2023 13:52 INDICATION: Left flank pain TECHNIQUE: Computed tomography (CT) of the abdomen and pelvis was performed without intravenous contr ast. The dose-length product (DLP) was 576.48 mGy-cm. Automated exposure control and iterative recons truction technique were employed. COMPARISON: 07/30/2022 FINDINGS: Minimal dependent atelectasis is present in the lung bases. The heart size is normal. There are changes of cholecystectomy. The liver, spleen, pancreas, and adrenal glands are normal. The left kidney is unremarkable. There is a 5.3 cm cyst of the right kidney. No pathologically enlarged abdom inal or pelvic lymph nodes are identified. The appendix is normal. Colonic diverticulosis is present without evidence of diverticulitis. There is an unchanged large lipoma of the left hip flexors. No fr ee intraperitoneal gas or evidence of bowel obstruction. There is severe lumbar spondylosis at L5-S1. There is a fat-containing umbilical hernia. A tiny fat-containing midline supraumbilical hernia is a lso noted. IMPRESSION: 1. No CT correlate for the patient's symptoms. Reviewed, dictated and finalized at location B.
== END 2023-01-13 13:07 | disposition home or self-care (01) ==
PROVIDERS: PCP Physician Assistant; Visit Provider Physician Assistant
DX: R10.9 Unspecified abdominal pain (principal)
CPT/HCPCS: 74176

== ENCOUNTER 2023-03-03 08:13 | Outpatient (CLI) | payer MEDICARE, SELFPAY ==
[2023-03-03 11:11] LABS: Basophils Percent Auto 0.5 % (0.2-1.2); Eosinophils Absolute Auto 0.3 K/mm3 (0-0.3); Hematocrit 40.5 % (37.0-47.0); Hemoglobin 13.2 g/dL (12.0-15.0); Immature Granulocyte Absolute 0.02 K/mm3 (0.00-0.031); Immature Granulocyte Percent A 0.4 % (0-0.5); Lymphocytes Absolute Auto 1.82 K/mm3 (0.9-3.2); Lymphocytes Percent Auto 32.4 % (18.3-44.2); Mean Corpuscular HGB Conc 32.6 g/dl (32-36); Mean Corpuscular Hemoglobin 30.4 pg (26-34); Mean Corpuscular Volume 93.3 fl (80-100); Mean Platelet Volume 10.6 fl (7.4-10.4); Monocytes Absolute Auto 0.6 K/mm3 (0.1-0.6); Monocytes Percent Auto 9.8 % (2.6-8.5); Neutrophils Absolute Auto 2.9 K/mm3 (1.3-6.7); Neutrophils Percent Auto 51.9 % (45.5-73.1); Platelet Count Result 236 k/mm3 (150-375); Red Blood Count 4.34 M/mm3 (4.2-5.4); Red Cell Distribution Width 14.6 % (11.5-14.5); White Blood Count 5.6 K/mm3 (4.5-10.0)
[2023-03-03 11:17] LABS: Appearance Urine Clear (Clear); Bilirubin Urine Negative (Negative); Blood Urine Negative (Negative); Color Urine Yellow (Yellow); Glucose Urine UA Negative (Negative); Ketones Urine Negative (Negative); Leukocyte Esterase Ur Negative LEU/UL (Negative); Nitrate Urine Negative (Negative); Protein Urine Negative (Negative); Specific Grav Ur 1.017 (1.001-1.035); Urobilinogen Urine 0.2 mg/dL (<2.0)
[2023-03-03 11:22] LABS: Albumin Level 4.4 g/dL (3.5-5.1); Anion Gap 6 mmol/L (8-16); Blood Urea Nitrogen 26 mg/dL (7-17); Calcium 10.1 mg/dL (8.4-10.2); Carbon Dioxide 31 mmol/L (22-30); Chloride 101 mmol/L (98-107); Estimated Glomerular Filt Rate 29; Glucose 75 mg/dL (65-110); Potassium 3.8 mmol/L (3.4-5.0); Prothrombin Time 13.2 Seconds (11.1-14.7); Sodium 138 mmol/L (137-145)
[2023-03-03 11:23] LABS: Urine Cotinine NEGATIVE
[2023-03-03 11:24] LABS: Partial Thromboplastin Time 28.6 SECONDS (22.3-36.8)
[2023-03-03 11:36] LABS: Add Urine Microscopic? NO
[2023-03-03 11:50] LABS: Hemoglobin A1C 6.3 % (<5.7)
== END 2023-03-03 08:14 | disposition home or self-care (01) ==
LOC: ANHSURGERY 08:17
PROVIDERS: PCP Internal Medicine; Visit Provider Orthopaedic Surgery
DX: M17.12 Unilateral primary osteoarthritis, left knee (principal); Z01.818 Encounter for other preprocedural examination
CPT/HCPCS: 80048; 80307; 81003; 82040; 83036; 85025; 85610; 85730; 86850; 86900; 86901; 87081

== ENCOUNTER 2023-03-11 01:17 | Day surgery (SDC) | payer MEDICARE, SELFPAY ==
[2023-03-03 08:47] VITALS: BP 149/90; PULSE 79; RESP 16; TEMP 36.7; O2SAT 100; BMI 29.3
--- NOTE | 2023-03-03 09:05 | PC.NURSE ---
Report to the Outpatient Waiting Room, entrance under the green pavilion located off [facility], at time _10:00AM on date __03/11/23 . Planned Procedure Time: __12:00PM . Time changes happen often and if your time is changed the preop area will call you the afternoon before. - You and your visitor will be asked to self-screen and do not enter if you have any COVID symptoms. - A mask is optional within the hospital at this time. Patients may have clear liquids (water, carbonated beverages, clear teas, apple juice) until 3 hours prior to surgery with a maximum of 20 ounces. - No food from midnight until time of surgery. Take the following medications with a SIP of water the morning of surgery: ___CARVEDILOL, HYDROCODONE & MECLIZINE NEEDED DO NOT STOP ANY OF YOUR OTHER PRESCRIPTION MEDICATIONS PRIOR TO SURGERY ?EXCEPT THE FOLLOWING Medications to discontinue per physician ___HOLD CLOPIDOGREL & ASPIRIN PER DR ARCHULETA_ HOLD ALL VITAMINS/SUPPLEMENTS 3 DAYS PRE-OP PER ANESTHESIA- LAST DOSE 03/07/23 Please no make-up, nail amharic, hairspray, perfume, deodorant, or body powder the day of surgery. No jewelry (including any body piercings) or valuables the day of surgery, leave them at home. Please take a shower or bath the night before, or the morning of, surgery with an antibacterial soap. Wear comfortable, loose fitting clothing. - Jewelry must be removed prior to entering the operating room. Rings and piercings that are not removed may be cut off. - The hospital will not accept responsibility for valuables. - Please leave all valuables, including medications, at home the day of surgery. If you are going home after surgery, a licensed electric lift truck driver must drive you home. - NO public transportation without another adult if you receive anesthesia. - We recommend that an adult stay with you for 24 hours following discharge. - We also recommend that you do not drive, make important decision, drink alcoholic beverages, or take any drugs that were not prescribed by your health care provider for at least 24 hours after your discharge time. FOLLOW ANY ADDITIONAL INSTRUCTION BY YOUR SURGEON. If you or anyone in your household have experienced Covid symptoms in the past week, please notify your surgeon or the nurse liaison at the phone number below for possible testing. Telephone instructions given to __PATIENT and asked if any additional questions and then verbalized understanding. Patient advised to call surgeon office or pre surgery nurse liaison [phone] if any additional questions.
--- NOTE | 2023-03-11 10:28 | WPDHPUPDATE1 ---
History and Physical Update Update Date/Time: 03/11/23 10:28 History and Physical has been reviewed, including an updated exam of the patient. There are NO changes in the patient's condition. Risks, benefits, and alternatives have been discussed and questions answered. Patient agrees to proceed with procedure.
[2023-03-11] MEDS: ACETAMINOPHEN 500 MG TABLET 1000 MG PO (10:34)
[2023-03-11] MEDS: LACTATED RINGERS 1,000 ML 30 ML IV CONT (10:45)
[2023-03-11 10:52] LABS: Glucose Point of Care 106 mg/dl (65-105)
[2023-03-11 11:03] VITALS: BP 140/58; PULSE 88; RESP 16; TEMP 37.5; O2SAT 97
--- NOTE | 2023-03-11 11:32 | WPDANESEPPF ---
Anes - Initial Pre Proc Eval Procedure: Operation Date: 03/11/23 12:00 Proposed Procedures p Left Total Knee Arthroplasty, Right Knee Aspiration/Cortisone Injection - Jerman Garza MD Date/Time: 03/11/23 11:32 Surgeon: Jerman Garza MD Pre Op Diagnosis: left knee DJD Patient Data Age: 77 Gender: F Height: 1.68 m Weight: 80.6 kg Last Vital Signs Temp 37.5 C 03/11/23 11:03 Pulse 88 03/11/23 11:03 Resp 16 03/11/23 11:03 BP 140/58 L 03/11/23 11:03 Pulse Ox 97 03/11/23 11:03 O2 Del Method Room Air 03/11/23 11:03 Allergies Allergy/AdvReac Type Severity Reaction Status Date / Time erythromycin base Allergy Intermediate Palpitation Verified 03/11/23 11:06 s meperidine [From Demerol] Allergy Intermediate Hives Verified 03/11/23 11:06 Pork/Porcine Containing AdvReac Intermediate Hypertensio Verified 03/11/23 11:06 Products n Mucrpur-RNP-MoJ Reductase AdvReac Intermediate body pain, Verified 03/11/23 11:06 Inhibitor BODY ACHES Home Medications Medication Instructions Recorded Confirmed Type clopidogrel 75 mg tablet 75 mg PO DAILY 04/21/20 03/11/23 History losartan 100 mg tablet 100 mg PO HS 04/21/20 03/11/23 History carvedilol 25 mg tablet 25 mg PO Q12H #180 tabs 11/19/21 03/11/23 Rx spironolactone 25 mg tablet 25 mg PO QAM 04/04/22 03/11/23 History chlorthalidone 25 mg tablet 25 mg PO QAM 04/05/22 03/11/23 History tjcjyzvw-njaz-bjqk 8 mg-folic 400 1 tablet PO DAILY 06/25/22 03/11/23 History mcg-K 50 mcg-lutein 300 mcg tablet (Centrum Silver Women) nifedipine 60 mg tablet,extended 30 mg PO HS 06/25/22 03/11/23 History release aspirin 81 mg chewable tablet 81 mg PO DAILY 06/27/22 03/11/23 History (Children's Aspirin) cyclobenzaprine 10 mg tablet See Rx Instructions .Route 08/09/22 03/11/23 Rx .COMPLEX #30 ea meclizine 25 mg tablet See Rx Instructions .Route 08/09/22 03/03/23 Rx .COMPLEX #30 ea nitroglycerin 0.6 mg sublingual 0.6 mg sublingual Q5M PRN chest 08/12/22 03/03/23 Rx tablet pain #30 tabs blood-glucose transmitter (Dexcom #2 ea 09/25/22 02/24/23 Rx G6 Transmitter device) ezetimibe 10 mg tablet See Rx Instructions .Route 10/03/22 03/11/23 Rx .COMPLEX #0.1 ea hydrocodone 5 mg-acetaminophen 325 1 tablet PO Q6H PRN pain #40 tabs 12/30/22 03/03/23 Rx mg tablet blood-glucose sensor (Dexcom G6 #3 ea 02/07/23 02/24/23 Rx Sensor device) menthol 5 % topical gel (Biofreeze 1 ea topical BID PRN Pain 03/03/23 03/11/23 History (menthol)) rabeprazole 20 mg tablet,delayed 20 mg PO QAM 03/03/23 03/11/23 History release (AcipHex) tumeric 100 mg-juan alberto 150 mg-olive 1 cap PO DAILY 03/03/23 03/11/23 History 50 mg-oreg 150 mg-caprylate capsule chlorhexidine gluconate 4 % 1 applic topical ONCE #237 mL 03/04/23 Rx topical liquid (Hibiclens) insulin aspart U-100 100 unit/mL See Rx Instructions .Route 03/04/23 03/11/23 Rx subcutaneous solution (Novolog .COMPLEX #20 mL U-100 Insulin aspart) Laboratory Tests 03/11/23 10:48 POC Capillary Glucose 106 H mg/dl (65-105) Patient hx anesthesia problems: none Family hx anesthesia problems: none Results Review: All pre-operative results and documents have been reviewed as part of the pre-operative evaluation. [facility] Past Medical History Medical History Bilateral atherosclerotic renal artery stenosis Carpal tunnel syndrome on both sides CKD stage 4 due to type 2 diabetes mellitus Colon polyp COPD (chronic obstructive pulmonary disease) Diabetes Hemoglobin A1c 6.5 % March 2021 Diabetic nephropathy Diabetic neuropathy Family history of colon cancer in father High cholesterol Intolerant to statins History of stent insertion of renal artery Hypertension IBS (irritable bowel syndrome) Kidney disease Left knee DJD Obstructive sleep apnea Intolerant to CPAP Peripheral artery disease Right knee pain Type
[2023-03-11] MEDS: TRANEXAMIC ACID 1,000MG/ISO100 1,000 MG/100 ML BAG 200 MG IVPB (11:47)
--- NOTE | 2023-03-11 13:11 | SUR.PREOP ---
Dr Garza spoke to patient and called son to inform both today's surgery will be canceled and additional testing for location of leg stents will be set up by office and case to be rescheduled after.
== END 2023-03-11 13:10 | disposition home or self-care (01) ==
PROVIDERS: PCP Physician Assistant; Visit Provider Orthopaedic Surgery
PROC: (CPT 27447; principal; 2023-03-11 12:00)
DX: M17.12 Unilateral primary osteoarthritis, left knee (principal); E11.22 Type 2 diabetes mellitus with diabetic chronic kidney disease; E11.21 Type 2 diabetes mellitus with diabetic nephropathy; E11.51 Type 2 diabetes mellitus with diabetic peripheral angiopathy without gangrene; I12.9 Hypertensive chronic kidney disease with stage 1 through stage 4 chronic kidney disease, or unspecified chronic kidney disease; N18.4 Chronic kidney disease, stage 4 (severe); I73.9 Peripheral vascular disease, unspecified; I70.1 Atherosclerosis of renal artery; J44.9 Chronic obstructive pulmonary disease, unspecified; E78.00 Pure hypercholesterolemia, unspecified; K58.9 Irritable bowel syndrome, unspecified; G47.33 Obstructive sleep apnea (adult) (pediatric); Z87.891 Personal history of nicotine dependence; Z79.82 Long term (current) use of aspirin; Z79.4 Long term (current) use of insulin; Z79.891 Long term (current) use of opiate analgesic; Z96.0 Presence of urogenital implants; Z95.5 Presence of coronary angioplasty implant and graft; Z53.8 Procedure and treatment not carried out for other reasons
CPT/HCPCS: 80048; 80307; 81003; 82040; 82948; 83036; 85025; 85610; 85730; 86850; 86900; 86901; 87081; 99213; A9270; C1713; G0463; J0171; J1040; J1170; J1885; J2270; J2795; J3010; J3370; J7120

== ENCOUNTER 2023-03-17 08:05 | Outpatient (CLI) | payer MEDICARE, SELFPAY ==
--- NOTE | ~2023-03-17 | US_ITS ---
EXAMINATION: US arterial duplex LE DATE: 03/17/2023 10:56 INDICATION: Peripheral arterial disease. TECHNIQUE: Multiple grayscale and Doppler ultrasound images of the lower limb arteries were obtained. COMPARISON: None FINDINGS: In right lower limb, peak systolic velocity is 66 cm/s in common femoral artery, 46 cm/s in profunda femoral artery, 55 cm/s in proximal superficial femoral artery, 170 cm/s in mid superficial femoral artery, 62 cm/s in distal superficial femoral artery, 43 cm/s in popliteal artery, 33 cm/s i n posterior tibial artery, and 30 cm/s in dorsalis pedis. No stent is visualized. In left lower limb, peak systolic velocity is 83 cm/s in common femoral artery, 92 cm/s in profunda f emoris artery, 120 cm/s in superficial femoral artery, 71 cm/s in popliteal artery, 41 cm/s in press worker helper ior tibial artery, and 28 cm/s in dorsalis pedis. No stent is visualized. IMPRESSION: 1. Increased velocity gradient within right superficial femoral artery, consistent with at least mode rate stenosis. Reviewed, dictated and finalized at location E. IMPRESSION: 1. Increased velocity gradient within right superficial femoral artery, consist ent with at least moderate stenosis.
== END 2023-03-17 08:06 | disposition home or self-care (01) ==
PROVIDERS: PCP Physician Assistant; Visit Provider Orthopaedic Surgery
DX: I73.9 Peripheral vascular disease, unspecified (principal)
CPT/HCPCS: 93925

== ENCOUNTER 2023-06-27 08:29 | Outpatient (CLI) | payer OTHER, SELFPAY ==
[2023-06-27 09:12] LABS: Appearance Urine Cloudy (Clear); Bacteria Urine Rare /hpf; Bilirubin Urine Negative (Negative); Blood Urine Negative (Negative); Color Urine Yellow (Yellow); Glucose Urine UA Negative (Negative); Ketones Urine Negative (Negative); Leukocyte Esterase Ur Negative LEU/UL (Negative); Nitrate Urine Negative (Negative); Non Pathogenic Casts 0-2; Protein Urine Negative (Negative); RBC Urine 0-2 /hpf (0-2); Squamous Epithelial Cell Urine Many /hpf (Few); WBC Urine 0-5 /hpf; pH Urine 5.5 (5.0-9.0)
[2023-06-27 09:20] LABS: Partial Thromboplastin Time 30.8 SECONDS (22.3-36.8)
[2023-06-27 09:24] LABS: Add Urine Microscopic? YES
[2023-06-27 09:27] LABS: Urine Cotinine NEGATIVE
[2023-06-27 12:16] LABS: MRSA (PCR) NOT DETECTED (NOT DETECTE)
== END 2023-06-27 08:30 | disposition home or self-care (01) ==
LOC: ANHSURGERY 08:32
PROVIDERS: PCP Physician Assistant; Visit Provider Orthopaedic Surgery
DX: Z01.818 Encounter for other preprocedural examination (principal); M17.12 Unilateral primary osteoarthritis, left knee
CPT/HCPCS: 80307; 81001; 85610; 85730; 86850; 86900; 86901; 87641

== ENCOUNTER 2023-07-01 01:09 | Day surgery (SDC) | payer OTHER, SELFPAY ==
[2023-06-20 11:09] VITALS: BMI 29.5
--- NOTE | 2023-06-20 11:33 | PC.NURSE ---
Report to the Outpatient Waiting Room, entrance under the green pavilion located off [facility], at time __10:00AM__ on date __07/01/23___. Planned Procedure Time: __12:00PM . Time changes happen often and if your time is changed the preop area will call you the afternoon before. - You and your visitor will be asked to self-screen and do not enter if you have any COVID symptoms. - A mask is optional within the hospital at this time. Patients may have clear liquids (water, carbonated beverages, clear teas, apple juice) until 3 hours prior to surgery with a maximum of 20 ounces. - No food from midnight until time of surgery. Take the following medications with a SIP of water the morning of surgery: __CARVEDILOL, MECLIZINE NEEDED, BASAL RATE ON INSULIN PUMP_ DO NOT STOP ANY OF YOUR OTHER PRESCRIPTION MEDICATIONS PRIOR TO SURGERY ?EXCEPT THE FOLLOWING Medications to discontinue per physician ___PER DR ARCHULETA: HOLD PLAVIX 5 DAYS PRE-OP - LAST DOSE 06/25/23. HOLD ASPIRIN & ALL VITAMINS/SUPPLEMENTS 7 DAYS PRE-OP - LAST DOSE 06/23/23. Please no make-up, nail indonesian, hairspray, perfume, deodorant, or body powder the day of surgery. No jewelry (including any body piercings) or valuables the day of surgery, leave them at home. Please take a shower or bath the night before, or the morning of, surgery with an antibacterial soap. Wear comfortable, loose fitting clothing. Children are encouraged to wear pajamas. - Jewelry must be removed prior to entering the operating room. Rings and piercings that are not removed may be cut off. - The hospital will not accept responsibility for valuables. - Please leave all valuables, including medications, at home the day of surgery. If you are going home after surgery, a licensed medical driver must drive you home. - NO public transportation without another adult if you receive anesthesia. - We recommend that an adult stay with you for 24 hours following discharge. - We also recommend that you do not drive, make important decision, drink alcoholic beverages, or take any drugs that were not prescribed by your health care provider for at least 24 hours after your discharge time. Follow any additional instructions given to you from your surgeon. If you or anyone in your household have experienced Covid symptoms in the past week, please notify your surgeon or the nurse liaison at the phone number below for possible testing. Telephone instructions given to ____PATIENT and asked if any additional questions and then verbalized understanding. Patient advised to call surgeon office or pre surgery nurse liaison [phone] if any additional questions.
[2023-07-01] VITALS (19 sets, daily range): BP systolic 119–168; BP diastolic 64–99; PULSE 50–81; RESP 9–20; TEMP 35.7–37.2; O2SAT 94–100
--- NOTE | ~2023-07-01 | XR_ITS ---
EXAMINATION: [id number] DATE: 07/01/2023 12:29 INDICATION: Left knee arthroplasty. Postop. TECHNIQUE: 2 views of left knee were obtained. COMPARISON: Left knee radiographs 06/27/23 FINDINGS: There is a total left knee arthroplasty without patellar resurfacing in near-anatomic align ment. Osteophytes have been resected from patella. No fracture. There is gas in the knee joint and so ft tissues, consistent with recent surgery. Skin arjun are noted. IMPRESSION: 1. Total left knee arthroplasty in near-anatomic alignment. Reviewed, dictated and finalized at location A. [employer]
--- NOTE | 2023-07-01 07:19 | WPDHPUPDATE1 ---
History and Physical Update Update Date/Time: 07/01/23 07:19 History and Physical has been reviewed, including an updated exam of the patient. There are NO changes in the patient's condition. Risks, benefits, and alternatives have been discussed and questions answered. Patient agrees to proceed with procedure.
[2023-07-01] MEDS: LACTATED RINGERS 1,000 ML 30 ML IV CONT (08:15)
[2023-07-01] MEDS: ACETAMINOPHEN 500 MG TABLET 1000 MG PO (08:30)
[2023-07-01] MEDS: TRANEXAMIC ACID 1,000MG/ISO100 1,000 MG/100 ML BAG 200 MG IVPB (08:30)
[2023-07-01 08:45] LABS: Glucose Point of Care 78 mg/dl (65-105)
--- NOTE | 2023-07-01 09:08 | WPDANESEPPF ---
Anes - Initial Pre Proc Eval Procedure: Operation Date: 07/01/23 09:30 Proposed Procedures p Left Total Knee Arthroplasty, Right Knee Aspiration and Injection - Jerman Garza MD Date/Time: 07/01/23 09:08 Surgeon: Jerman Garza MD Pre Op Diagnosis: DJD bilat knee Patient Data Age: 78 Gender: F Height: 1.67 m Weight: 82 kg Allergies Allergy/AdvReac Type Severity Reaction Status Date / Time meperidine [From Demerol] Allergy Intermediate Hives Verified 06/27/23 09:18 erythromycin base AdvReac Intermediate Palpitation Verified 06/27/23 09:18 s Pork/Porcine Containing AdvReac Intermediate Hypertensio Verified 06/27/23 09:18 Products n Rgidjqe-WFG-EpW Reductase AdvReac Intermediate body pain, Verified 06/27/23 09:18 Inhibitor BODY ACHES Home Medications Medication Instructions Recorded Confirmed Type clopidogrel 75 mg tablet 75 mg PO DAILY 04/21/20 06/27/23 History losartan 100 mg tablet 100 mg PO HS 04/21/20 06/27/23 History spironolactone 25 mg tablet 25 mg PO QAM 04/04/22 06/27/23 History chlorthalidone 25 mg tablet 25 mg PO QAM 04/05/22 06/27/23 History sibobxws-wops-rcoe 8 mg-folic 400 1 tablet PO DAILY 06/25/22 06/27/23 History mcg-K 50 mcg-lutein 300 mcg tablet (Centrum Silver Women) aspirin 81 mg chewable tablet 81 mg PO DAILY 06/27/22 06/27/23 History (Children's Aspirin) meclizine 25 mg tablet See Rx Instructions .Route 08/09/22 06/27/23 Rx .COMPLEX #30 ea blood-glucose transmitter (Dexcom #2 ea 09/25/22 06/27/23 Rx G6 Transmitter device) ezetimibe 10 mg tablet See Rx Instructions .Route 10/03/22 06/27/23 Rx .COMPLEX #0.1 ea blood-glucose sensor (Dexcom G6 #3 ea 02/07/23 06/27/23 Rx Sensor device) rabeprazole 20 mg tablet,delayed 20 mg PO QAM 03/03/23 06/27/23 History release (AcipHex) nitroglycerin 0.6 mg sublingual 0.6 mg sublingual Q5M PRN chest 05/20/23 06/27/23 Rx tablet pain #30 tabs carvedilol 25 mg tablet 25 mg PO Q12H 06/04/23 06/27/23 History ergocalciferol (vitamin D2) 1,250 1,250 mcg PO WEEKLY 06/04/23 06/27/23 History mcg (50,000 unit) capsule insulin aspart U-100 100 unit/mL See Rx Instructions .Route 06/04/23 06/27/23 Rx subcutaneous solution (Novolog .COMPLEX #45 mL U-100 Insulin aspart) nifedipine 30 mg tablet,extended 30 mg PO HS 06/20/23 06/27/23 History release 24 hr pitavastatin calcium 4 mg tablet 4 mg PO DAILY #30 tabs 06/27/23 Rx (Livalo) Laboratory Tests 07/01/23 08:33 POC Capillary Glucose 78 mg/dl (65-105) Patient hx anesthesia problems: none Family hx anesthesia problems: none Results Review: All pre-operative results and documents have been reviewed as part of the pre-operative evaluation. [facility] Past Medical History Medical History Bilateral atherosclerotic renal artery stenosis Carpal tunnel syndrome on both sides CKD stage 4 due to type 2 diabetes mellitus Colon polyp COPD (chronic obstructive pulmonary disease) Diabetes Hemoglobin A1c 6.5 % March 2021 Diabetic nephropathy Diabetic neuropathy Family history of colon cancer in father High cholesterol Intolerant to statins History of stent insertion of renal artery Hypertension IBS (irritable bowel syndrome) Kidney disease Left knee DJD Obstructive sleep apnea Intolerant to CPAP Peripheral artery disease Right knee pain Type 2 diabetes mellitus Surgical History Surgical History H/O heart artery stent 03/2022 History of ankle surgery 1996, right ankle History of carpal tunnel release 1989, bilateral History of hysterectomy 1988, partial History of renal stent 03/2022 History of vascular surgery 2017, Bilateral lower extremity stents Hx of cholecystectomy 2005 Family History Family History Father Colon cancer Mother Hype
[2023-07-01] MEDS: ceFAZolin 2 GM/D5W 50 ML 2 GM/50 ML BAG IVPB ×2 (09:26→17:04)
--- NOTE | 2023-07-01 09:27 | WPDANESPNB ---
Anes - Peripheral Nerve Block Date/Time: 07/01/23 09:27 I have discussed with the patient/family/POA the placement of a peripheral nerve block for post-operative pain management, including associated risks, benefits, complications, and side effects. Alternative methods of post-operative analgesia were detailed. Questions were solicited and answers provided to the satisfaction of the patient/family/POA. Time-Out: A pre-procedural Time-Out was completed immediately before starting the procedure and confirmed: Patient Identification, Site, Procedure, Patient Position and the Availability of Requisite Equipment. Clinical Indications: Acute post-operative pain management requested by the operative surgeon. Nerve Block Insertion Note Anes-nerve block: adductor canal left Patient position: supine Skin prep: chlorhexidine Needle: 22 gauge, stimulating, insulated echogenic needle. Needle length: 80 mm Technique: ultrasound Technique comment: [id number] Injectate: bupivacaine 0.5% with epi 5 mcg/ml (30ml no epi) and dexamethasone (mg) (4) Observations: tolerated well Complications: none Procedure start time:: 914 Procedure end time:: 921
[2023-07-01] MEDS: BUPivacaine HCL 0.5% PF 30 ML VIAL INFILTRATE (10:34)
[2023-07-01] MEDS: methylPREDNISolone ACETATE 80 MG/ML VIAL IM (10:35)
[2023-07-01] MEDS: TRANEXAMIC ACID 1,000 MG/10 ML AMPUL 1000 MG IV PUSH (11:21)
[2023-07-01] MEDS: fentaNYL CITRATE INJ (*CRX) 100 MCG/2 ML VIAL 25 MCG IV PUSH ×7 (12:29→13:05)
[2023-07-01 12:48] LABS: Glucose Point of Care 119 mg/dl (65-105)
--- NOTE | 2023-07-01 12:49 | W.PM.PROC2 ---
Procedure Note - Detailed Date of Procedure 07/01/23 Pre-op Diagnosis LEFT KNEE DJD, RIGHT KNEE DJD Post-op Diagnosis Same Procedure Performed L TKA, RIGHT KNEE INJECTION Surgeon Jerman Garza MD Anesthesia General Description of Procedure THE LEFT KNEE WAS PREPPED AND DRAPED IN THE STERILE FASHION. THERE WAS A 40 DEGREE FLEXION CONTRACTURE. A MIDLINE SKIN INCISION WAS MADE. A MEDIAL PARAPATELLAR ARTHROTOMY WAS MADE. THE PATELLA WAS EVERTED. THERE WAS TRICOMPARTMENT DJD. THERE WAS MINIMAL PATELLA DJD. AN INTRAMEDULLARY ALEX WAS PLACED IN THE FEMUR. A DISTAL FEMORAL CUT WAS MADE IN 5 DEGREES OF VALGUS REMOVING APPROXIMATELY 13 MM OF BONE FROM THE DISTAL FEMUR. THE FEMUR WAS SIZED TO 60. A 60 FEMORAL CUTTING BLOCK WAS PLACED IN 3 DEGREES OF EXTERNAL ROTATION AND IN ALIGNMENT WITH REZA'S LINE AND THE TRANSEPICONDYLAR AXIS. ANTERIOR POSTERIOR AND CHAMFER CUTS WERE MADE. THE CUTS WERE EXCELLENT. NEXT AN INTRAMEDULLARY CUTTING GUIDE WAS PLACED IN THE TIBIA. A TRANS TIBIAL CUT WAS MADE ALONG THE LONG AXIS OF THE TIBIA. APPROXIMATELY 10 MM OF BONE WAS REMOVED FROM THE HIGH SIDE OF THE TIBIA. THE TIBIA WAS THEN PLANED TO A SMOOTH SURFACE. POSTERIOR FEMORAL OSTEOPHYTES WERE REMOVED FROM THE FEMORAL CONDYLES. A 71 TIBIAL TRIAL WAS PLACED IN ALIGNMENT WITH THE 1/3 MEDIAL ASPECT OF THE TIBIAL TUBERCLE. THEN A 60 FEMORAL TRIAL COMPONENT WAS PLACED. BOTH HAD EXCELLENT FITS. EVENTUALLY A 10 MM CR POLYETHYLENE TRIAL COMPONENT WAS PLACED. THE KNEE WAS TAKEN THROUGH A RANGE OF MOTION. THE KNEE CAME OUT TO FULL EXTENSION. THERE WAS NO ABNORMAL TILT TO THE PATELLA. THERE WAS GOOD A/P AND VARUS/VALGUS STABILITY. THERE WAS NO EXCESSIVE ROLL BACK WITH FLEXION. THE TRIAL COMPONENTS WERE REMOVED. THEN A 60 FEMORAL COMPONENT AND 71 TIBIAL COMPONENT WITH A 10 CR POLYETHYLENE COMPONENT WERE CEMENTED INTO PLACE. ONCE THE CEMENT WAS HARD THE KNEE WAS TAKEN THROUGH A ROM AGAIN AND FOUND TO BE STABLE WITH NO PATELLA TILT NO EXCESSIVE ROLL BACK WITH FLEXION AND GOOD STABILITY WITH COMPLETE AND FULL EXTENSION. THE KNEE WAS IRRIGATED WITH STERILE BETADINE AND WATER FOR ABOUT 3 MINUTES. THE BLEEDERS WERE CAUTERIZED. THE ARTHROTOMY WAS REPAIRED WITH NUMBER 1 VICRYL. THE SUB CUTANEOUS LAYER WITH 2-0 VICRYL AND THE SKIN WITH RAUDEL. THE WOUND WAS WASHED AND A STERILE DRESSING WAS APPLIED. NEXT THE RIGHT KNEE WAS PREPPED AND 1 CC DEPO MEDROL 80 MG AND 5 CC MARCAINE 0.5% 5CC WAS INJECTED IN TO THE RIGHT KNEE JOINT. PATIENT WAS EXTUBATED. Estimated Blood Loss -150.0 Pathology None sent Complications No immediate complications Condition Stable Disposition PACU
[2023-07-01] MEDS: HYDROmorphone HCL INJ (*CRX) 1 MG/ML SYR IV PUSH (13:16)
[2023-07-01] MEDS: ONDANSETRON INJ 4 MG/2 ML VIAL IV PUSH (14:24)
--- NOTE | 2023-07-01 14:56 | SUR.PHASEI ---
Patient meets PACU discharge criteria 1455, unit bed unavailable at this time. Patient placed in extended recovery status.
--- NOTE | 2023-07-01 15:45 | ADMGEN ---
This patient, Sony Ricardo, was admitted to [facility] Surg Room 329-01. Patient/family oriented to hospital policies and general routines including ID bracelet, bed and alarms, visiting hours, pain management, procedures, bathroom and other care routines, personal items, smoking policy, room service/diet, and visiting hours. Information on how to activate the Rapid Response Team has been discussed. Patient/Family are encouraged to report perceived risks to care and to ask questions if they do not understand what they are told or what they should do.
[2023-07-01] MEDS: CELECOXIB 200 MG CAPSULE PO (17:03)
[2023-07-01 17:04] LABS: Glucose Point of Care 128 mg/dl (65-105)
[2023-07-01] MEDS: SENNA/DOCUSATE SODIUM TABLET 2 TAB PO (17:04)
[2023-07-01] MEDS: FAMOTIDINE 20 MG TABLET PO (19:08)
[2023-07-01] MEDS: LOSARTAN POTASSIUM 100 MG TABLET PO (21:00)
[2023-07-01] MEDS: ASPIRIN 325 MG ENTERIC TABLET PO (21:00)
[2023-07-01] MEDS: carvediloL 25 MG TABLET PO (21:00)
[2023-07-01] MEDS: NIFEdipine 30 MG TAB.ER.24 PO (21:00)
[2023-07-01 21:42] LABS: Glucose Point of Care 119 mg/dl (65-105)
[2023-07-02] VITALS (8 sets, daily range): BP systolic 110–160; BP diastolic 51–78; PULSE 50–93; RESP 14–18; TEMP 36.4–37; O2SAT 96–99
[2023-07-02] MEDS: ceFAZolin 2 GM/D5W 50 ML 2 GM/50 ML BAG IVPB ×2 (01:45→10:25)
[2023-07-02 07:16] LABS: Basophils Percent Auto 0.2 % (0.2-1.2); Hematocrit 34.6 % (37.0-47.0); Hemoglobin 11.2 g/dL (12.0-15.0); Immature Granulocyte Absolute 0.09 K/mm3 (0.00-0.031); Immature Granulocyte Percent A 0.5 % (0-0.5); Lymphocytes Absolute Auto 1.45 K/mm3 (0.9-3.2); Lymphocytes Percent Auto 8.5 % (18.3-44.2); Mean Corpuscular HGB Conc 32.4 g/dl (32-36); Mean Corpuscular Hemoglobin 29.5 pg (26-34); Mean Corpuscular Volume 91.1 fl (80-100); Mean Platelet Volume 10.6 fl (7.4-10.4); Monocytes Absolute Auto 1.3 K/mm3 (0.1-0.6); Monocytes Percent Auto 7.5 % (2.6-8.5); Neutrophils Absolute Auto 14.3 K/mm3 (1.3-6.7); Neutrophils Percent Auto 83.3 % (45.5-73.1); Platelet Count Result 186 k/mm3 (150-375); Red Cell Distribution Width 13.5 % (11.5-14.5); White Blood Count 17.1 K/mm3 (4.5-10.0)
[2023-07-02 07:42] LABS: Anion Gap 11 mmol/L (8-16); Blood Urea Nitrogen 36 mg/dL (7-17); Calcium 9.7 mg/dL (8.4-10.2); Carbon Dioxide 23 mmol/L (22-30); Chloride 100 mmol/L (98-107); Estimated CRCL calculation 22 ml/min; Estimated Glomerular Filt Rate 28; Glucose 138 mg/dL (65-110); Sodium 134 mmol/L (137-145)
[2023-07-02] MEDS: carvediloL 25 MG TABLET PO ×2 (08:38→21:06)
[2023-07-02] MEDS: EZETIMIBE 10 MG TABLET PO (08:38)
[2023-07-02] MEDS: CLOPIDOGREL BISULFATE 75 MG TABLET PO (08:38)
[2023-07-02] MEDS: CELECOXIB 200 MG CAPSULE PO ×2 (08:38→17:24)
[2023-07-02] MEDS: SENNA/DOCUSATE SODIUM TABLET 2 TAB PO ×2 (08:38→17:24)
[2023-07-02] MEDS: polyethylene glycoL 3350 17 GM POWD.PACK PO (08:38)
[2023-07-02] MEDS: ASPIRIN 325 MG ENTERIC TABLET PO ×2 (08:38→21:06)
[2023-07-02] MEDS: SPIRONOLACTONE 25 MG TABLET PO (08:39)
[2023-07-02] MEDS: CHLORTHALIDONE 25 MG TABLET PO (08:39)
[2023-07-02] MEDS: FAMOTIDINE 20 MG TABLET PO ×2 (08:39→21:06)
[2023-07-02] MEDS: THERAPEUTIC MULTIVITAMINS/MINERALS TAB (*BKC) 1 TABLET PO (08:39)
[2023-07-02] MEDS: PANTOPRAZOLE 40 MG TABLET PO (08:39)
[2023-07-02] MEDS: oxyCODONE/ACETAMINOPHEN (*CRX) 5-325 MG TABLET 2 TABLET PO ×2 (09:24→15:04)
[2023-07-02] MEDS: diazePAM (*CRX) 5 MG TABLET PO (09:26)
--- NOTE | 2023-07-02 13:48 | WPDANESPN ---
Anes - Prog Note Post-Op Date/Time: 07/02/23 13:48 Cardiovascular status: normal Respiratory status: normal Airway patency: baseline Mental status: baseline Post-Op hydration status: normal Vital Signs: Last Vital Signs Temp 97.5 F L 07/02/23 12:00 Pulse 74 07/02/23 12:00 Resp 14 07/02/23 12:00 BP 110/55 L 07/02/23 12:00 Pulse Ox 96 07/02/23 12:00 O2 Del Method Room Air 07/02/23 08:40 O2 Flow Rate 2 07/01/23 15:00 Pain Score (VAS): 0/10 I/O: Intake & Output 07/01/23 07/02/23 07/02/23 23:59 07:59 15:59 Intake Total 530 600 530 Balance 530 600 530 Laboratory Tests 07/02/23 06:32 07/02/23 06:32 07/01/23 07/01/23 07/02/23 17:01 20:26 06:32 WBC 17.1 H RBC 3.80 L Hgb 11.2 L Hct 34.6 L MCV 91.1 MCH 29.5 MCHC 32.4 RDW 13.5 Plt Count 186 MPV 10.6 H Immature Gran % (Auto) 0.5 Neut % (Auto) 83.3 H Lymph % (Auto) 8.5 L Mingo % (Auto) 7.5 Eos % (Auto) 0.0 Baso % (Auto) 0.2 Lymph # (Auto) 1.45 Mingo # (Auto) 1.3 H Eos # (Auto) 0.0 Baso # (Auto) 0.0 Abs Immat Gran (auto) 0.09 H Absolute Neuts (auto) 14.3 H Absolute Nucleated RBC 0.0 Nucleated RBC % 0.0 Sodium 134 L Potassium 4.0 Chloride 100 Carbon Dioxide 23 Anion Gap 11 BUN 36 H D Creatinine 2.10 H Estim Creat Clear Calc 22 Estimated GFR 28 L Glucose 138 H POC Capillary Glucose 128 H 119 H Calcium 9.7 Post-procedural complaints: none Patient Feedback: Patient satisfied with anesthetic care.
[2023-07-02 16:02] LABS: SARS-CoV-2 RNA PCR Negative (Negative)
--- NOTE | 2023-07-02 18:48 | PM.PNORT ---
Progress Note: A&P Assessment and Plan (1) Left knee DJD: Qualifiers: Osteoarthritis type: primary Qualified Code(s): M17.12 - Unilateral primary osteoarthritis, left knee Code(s): M17.12 - Unilateral primary osteoarthritis, left knee Status: Acute Assessment and Plan: POD 1 DOING WELL. SHE WILL REQUIRE REHAB/SNF ONCE SHE IS APPROVED. SHE WILL CONTINUE HER PT. Subjective Subjective Date/Time Seen: 07/02/23 18:48 Interval history: POD 1 DOING WELL. SLOW PROGRESS WITH PT. NO CALF PAIN Exam Extrem: Other: VSS AFEBRILE DRESSING DRY NV INTACT NEG HOMANS SIGN THIGH AND CALF SOFT NON TENDER Objective Data Vital Signs Vital Signs: Vital Signs - 24 hr 07/01/23 20:25 07/01/23 20:00 07/02/23 00:25 Temperature 35.8 C L 36.8 C Pulse Rate 75 87 Respiratory Rate 20 18 Blood Pressure 168/99 H 148/78 H Pulse Oximetry 98 98 99 Oxygen Delivery Room Air 07/02/23 04:35 07/02/23 08:00 07/02/23 08:38 Temperature 37.0 C Pulse Rate 93 80 92 Respiratory Rate 16 17 Blood Pressure 160/70 H 137/67 Pulse Oximetry 99 99 Oxygen Delivery 07/02/23 08:40 07/02/23 08:00 07/02/23 12:00 Temperature 36.4 C L Pulse Rate 74 Respiratory Rate 14 Blood Pressure 110/55 L Pulse Oximetry 96 Oxygen Delivery Room Air Room Air 07/02/23 16:00 Temperature 36.6 C Pulse Rate 50 L Respiratory Rate 16 Blood Pressure 111/51 L Pulse Oximetry 97 Oxygen Delivery Intake/Output Intake/Output: Intake & Output 06/29/23 06/30/23 07/01/23 07/02/23 23:59 23:59 23:59 23:59 Intake Total 1680 1370 Balance 1680 1370 Meds/Results Medications: Active Medications Generic Name Dose Route Start Last Admin Trade Name Freq PRN Reason Stop Dose Admin Acetaminophen 1,000 mg 07/01/23 15:35 Acetaminophen 500 Mg Tablet PO Q6H PRN Pain Rated 1-3 Aspirin 325 mg 07/01/23 21:00 07/02/23 08:38 Aspirin 325 Mg Enteric Tablet PO 325 mg Q12HR KEYLA Administration Carvedilol 25 mg 07/01/23 21:00 07/02/23 08:38 Carvedilol 25 Mg Tablet PO 25 mg Q12H KEYLA Administration Celecoxib 200 mg 07/01/23 17:00 07/02/23 17:24 Celecoxib 200 Mg Capsule PO 200 mg BIDWM KEYLA Administration Chlorthalidone 25 mg 07/02/23 09:00 07/02/23 08:39 Chlorthalidone 25 Mg Tablet PO 25 mg QAM KEYLA Administration Clopidogrel Bisulfate 75 mg 07/02/23 09:00 07/02/23 08:38 Clopidogrel Bisulfate 75 Mg Tablet PO 75 mg DAILY KEYLA Administration Diazepam 5 mg 07/01/23 15:35 07/02/23 09:26 Diazepam (*Crx) 5 Mg Tablet PO 5 mg Q8H PRN Administration Spasms Diphenhydramine HCl 25 mg 07/01/23 15:35 Diphenhydramine Hcl Inj 50 Mg/Ml Vial IV PUSH Q6H PRN Itching Ezetimibe 10 mg 07/02/23 09:00 07/02/23 08:38 Ezetimibe 10 Mg Tablet PO 10 mg DAILY [facility] Administration Ergocalciferol 50,000 units 07/14/23 09:00 Ergocalciferol 50,000 Units Capsule PO Mo@0900 KEYLA Famotidine 20 mg 07/01/23 21:00 07/02/23 08:39 Famotidine 20 Mg Tablet PO 20 mg Q12HR KEYLA Administration Insulin Aspart 0 units 07/01/23 15:35 Insulin Aspart (*Bkc) 100 Units/Ml SUB-Q .COMPLEX KEYLA Losartan Potassium 100 mg 07/01/23 21:00 07/01/23 21:00 Losartan Potassium 100 Mg Tablet PO 100 mg HS [facility] Administration Meclizine HCl 25 mg 07/02/23 09:00 Meclizine Hcl 25 Mg Tablet BY MOUTH DAILY PRN Vertigo Miscellaneous Information 1 each 07/02/23 00:01 07/02/23 11:57 Med Rec Order Clarification XX 08/01/23 00:00 Not Given CLARIFY [facility] Miscellaneous Information 1 each 07/02/23 00:01 07/02/23 11:26 Med Rec Order Clarification XX 08/01/23 00:00 Not Given CLARIFY [facility] Multivitamins/Calcium 1 tablet 07/02/23 09:00 07/02/23 08:39 Therapeutic Multivitamins/Minerals Tab (*Bkc) PO 1 tablet DAILY KEYLA Administration Naloxone HCl 0.1 mg 07/01/23 15:35 Naloxone Hcl 0.
[2023-07-02] MEDS: LOSARTAN POTASSIUM 100 MG TABLET PO (21:06)
[2023-07-02] MEDS: NIFEdipine 30 MG TAB.ER.24 PO (21:06)
[2023-07-02] MEDS: oxyCODONE/ACETAMINOPHEN (*CRX) 5-325 MG TABLET 1 TABLET PO (21:06)
[2023-07-02 21:25] LABS: Glucose Point of Care 266 mg/dl (65-105)
[2023-07-03 05:21] VITALS: BP 121/52; PULSE 70; RESP 16; TEMP 36.1; O2SAT 96
[2023-07-03 08:18] LABS: Glucose Point of Care 118 mg/dl (65-105)
--- NOTE | 2023-07-03 09:33 | PM.PNORT ---
Progress Note: A&P Assessment and Plan (1) S/P total knee arthroplasty: Qualifiers: Laterality: left Qualified Code(s): Z96.652 - Presence of left artificial knee joint Code(s): Z96.659 - Presence of unspecified artificial knee joint Status: Acute Assessment and Plan: POD #2: Left TKA Continue PT/OT. WBAT. Walker. HIGH FALL RISK. Continue pain control. Ice Knee. Protect skin. DVT prophylaxis with Aspirin. SCDs. Incentive Spirometry Use reviewed. Monitor Dressing. Change prior to discharge. Bowel Regimen. Dispo: SNF pending progress with PT/OT Plan Reviewed history, exam, radiographs and current labs with attending MD and covering surgeon, Dr. Garza, who agrees with current plan as indicated above. No further recommendations from Dr. Garza at this time. Subjective Subjective Date/Time Seen: 07/03/23 09:33 Post Op day: 2 Interval history: POD #2: L TKA, RIGHT KNEE INJECTION Patient doing very well. Working with OT at time of exam. Pain well controlled. No new concerns. Plans for d/c to acute rehab today. Review of Systems Review of Systems: All systems reviewed & are unremarkable except as noted in HPI and below Constitutional: Constitutional: Denies fever(s) and Denies headache(s) ENT: Denies headache(s) Cardiovascular: Cardiovascular: Denies chest pain, Denies diaphoresis, Denies palpitations and Denies dyspnea Respiratory: Respiratory: Denies dyspnea Gastrointestinal: Gastrointestinal: Denies abdominal pain, Denies constipation, Denies nausea and Denies vomiting Genitourinary: Genitourinary: Reports nocturia and Denies dysuria Musculoskeletal: Musculoskeletal: Reports arthralgias (Left Knee ), Reports joint swelling (Left Knee ) and Reports limited range of motion (ROM limited due to recent surgical intervention LEFT Knee ) Neurologic: Denies headache(s) Endocrine: Endocrine: Denies palpitations Exam Const: General: comfortable and no acute distress Resp: Effort & Inspection: normal respiratory effort Cardio: Rate: regular rate Rhythm: regular rhythm GI: GI Palp: Yes Soft to palpation, No Tenderness to palpation present (GI) and No Guarding due to palpation present (GI) Skin: General skin exam: wounds noted (see extremity assessment ) Wounds: wounds noted (see extremity assessment ) Neuro: Cognition (Neuro): normal cognition Other: NV intact aside from block. Moves toes. Sensation intact to light touch. +ankle dorsiflexion/plantarflexion. Extrem: Left lower extremity: normal to inspection, normal capillary refill, knee Details: tenderness (diffuse ) Location: of the patella, swelling (moderate consistent to recent surgery ), abnormal ROM (limited due to recent surgery ) Details: pain with active ROM and pain with passive ROM and ecchymosis (as expected with recent surgery. NO hematoma. ), lower leg (Negative Lila's Sign ), ankle (+ankle dorsiflexion/plantarflexion ) Details: normal to inspection, no edema and normal ROM; no tenderness and no swelling and foot Details: normal capillary refill, toes with normal ROM, vascular exam Details: dorsalis pedis pulse present and motor-sensory exam light-touch normal; no tenderness Other: Incision left TKA dressing c/d/i. No hematoma. No signs of infection. No wound dehiscence. Psych: Mental Status: mental status grossly normal Objective Data Vital Signs Vital Signs: Vital Signs - 24 hr 07/02/23 12:00 07/02/23 16:00 07/02/23 21:05 Temperature 36.4 C L 36.6 C 36.8 C Pulse Rate 74 50 L 77 Respiratory Rate 14 16 16 Blood Pressure 110/55 L 111/51 L 140/62 Pulse Oximetry 96 97 98 Oxygen Delivery 07/02/23 20:00 07/03/23 05:21 Temperature 36.1 C L Pulse Rate 70 Respiratory Rate 16 Blood Pressure 121/52 L Pulse Oximetry 98 96 Oxygen Delivery Room Air Intake/Output Intake/Output: Intake & Output 06/30/23 07/01/23 07/02/23 07/03/23 23:59 23:59 23:59 23:59 Intake Total 16
[2023-07-03 10:03] VITALS: PULSE 70
[2023-07-03] MEDS: carvediloL 25 MG TABLET PO (10:03)
[2023-07-03] MEDS: CHLORTHALIDONE 25 MG TABLET PO (10:03)
[2023-07-03] MEDS: THERAPEUTIC MULTIVITAMINS/MINERALS TAB (*BKC) 1 TABLET PO (10:03)
[2023-07-03] MEDS: CELECOXIB 200 MG CAPSULE PO (10:03)
[2023-07-03] MEDS: SENNA/DOCUSATE SODIUM TABLET 2 TAB PO (10:03)
[2023-07-03] MEDS: PANTOPRAZOLE 40 MG TABLET PO (10:03)
[2023-07-03] MEDS: FAMOTIDINE 20 MG TABLET PO (10:03)
[2023-07-03] MEDS: SPIRONOLACTONE 25 MG TABLET PO (10:03)
[2023-07-03 10:05] VITALS: PULSE 99; RESP 14; O2SAT 66
[2023-07-03] MEDS: oxyCODONE/ACETAMINOPHEN (*CRX) 5-325 MG TABLET 1 TABLET PO (10:05)
[2023-07-03] MEDS: EZETIMIBE 10 MG TABLET PO (10:06)
[2023-07-03] MEDS: CLOPIDOGREL BISULFATE 75 MG TABLET PO (10:06)
[2023-07-03] MEDS: polyethylene glycoL 3350 17 GM POWD.PACK PO (10:06)
[2023-07-03] MEDS: ASPIRIN 325 MG ENTERIC TABLET PO (10:06)
[2023-07-03 10:08] VITALS: BP 102/53; PULSE 99; RESP 14; O2SAT 66
--- NOTE | 2023-07-03 11:41 | PM.DS ---
DS: Admitting Diagnosis Discharge Date 07/03/2023 Admitting Diagnosis Left Knee DJD DS: Discharge Diagnosis Discharge Diagnosis (1) S/P total knee arthroplasty: Qualifiers: Laterality: left Qualified Code(s): Z96.652 - Presence of left artificial knee joint Code(s): Z96.659 - Presence of unspecified artificial knee joint Status: Acute Assessment and Plan: POD #2: Left TKA Continue PT/OT. WBAT. Walker. HIGH FALL RISK. Continue pain control. Ice Knee. Protect skin. DVT prophylaxis with Aspirin. SCDs. Incentive Spirometry Use reviewed. Monitor Dressing. Change prior to discharge. Bowel Regimen. Dispo: SNF pending progress with PT/OT Plan Reviewed history, exam, radiographs and current labs with attending MD and covering surgeon, Dr. Garza, who agrees with current plan as indicated above. No further recommendations from Dr. Garza at this time. DS: Summary Hospital Course Reason for hospitalization: Left TKA Hospital Course: 78 year old female admitted s/p Left TKA for postoperative medical management, pain control and mobilization with PT/OT. Patient progressed well with PT/OT. Pain and vitals remained stable throughout. The patient has been cleared to be discharged home with home health at this time. All discharge care instructions reviewed at depth. New medications reviewed. Follow up planned for 3 weeks in the outpatient orthopedic clinic with Dr. Garza. Dr. Garza in agreement with safe discharge at this time. Status at Discharge Functional status at discharge: uses cane/walker Overall status at discharge: patient is progressing back to baseline Time Spent with Patient Time attestation: Total time spent providing and/or coordinating discharge services: Exam Const: General: comfortable and no acute distress Resp: Effort & Inspection: normal respiratory effort Cardio: Rate: regular rate Rhythm: regular rhythm Skin: General skin exam: wounds noted (see extremity assessment ) Wounds: wounds noted (see extremity assessment ) Neuro: Cognition (Neuro): normal cognition Other: NV intact aside from block. Moves toes. Sensation intact to light touch. +ankle dorsiflexion/plantarflexion. Extrem: Left lower extremity: normal to inspection, normal capillary refill, knee Details: tenderness (diffuse ) Location: of the patella, swelling (moderate consistent to recent surgery ), abnormal ROM (limited due to recent surgery ) Details: pain with active ROM and pain with passive ROM and ecchymosis (as expected with recent surgery. NO hematoma. ), lower leg (Negative Lila's Sign ), ankle (+ankle dorsiflexion/plantarflexion ) Details: normal to inspection, no edema and normal ROM; no tenderness and no swelling and foot Details: normal capillary refill, toes with normal ROM, vascular exam Details: dorsalis pedis pulse present and motor-sensory exam light-touch normal; no tenderness Other: Incision left TKA dressing c/d/i. No hematoma. No signs of infection. No wound dehiscence. Psych: Mental Status: mental status grossly normal DS: Data Data Completed and Pending Labs on day of discharge: Labs from last 24 hours 07/03/23 07/02/23 07/02/23 08:13 21:07 15:13 POC Capillary Glucose 118 H 266 H SARS-CoV-2 RNA (RT-PCR) Negative Discharge Plan Discharge Patient Disposition: SNF Discharge Instructions: Post Op Total Knee Replacement Instructions Dr. Jerman Garza [phone] Your dressing will be changed prior to your discharge. You will be sent home with one additional dressing to be changed on post op day 7 by the home health RN. Your arjun will be removed on the 14th day after surgery and steri-strips will be placed. Please practice good hand hygiene and do not touch your incision in order to prevent infection. You may shower with your dressing but do not submerge in a bath tub. Do not drive or operate machinery until you are released by Dr. Degroot
[2023-07-03 11:48] LABS: Glucose Point of Care 175 mg/dl (65-105)
[2023-07-03] MEDS: ACETAMINOPHEN 500 MG TABLET 1000 MG PO (11:54)
== END 2023-07-03 13:28 ==
LOC: ANHSURGERY 07:28 → ANH3MEDSUR 16:02
PROVIDERS: PCP Physician Assistant; Visit Provider Orthopaedic Surgery
PROC: (CPT 27447; principal; 2023-07-01 09:30)
DX: M17.0 Bilateral primary osteoarthritis of knee (principal); G89.18 Other acute postprocedural pain; I12.9 Hypertensive chronic kidney disease with stage 1 through stage 4 chronic kidney disease, or unspecified chronic kidney disease; E11.22 Type 2 diabetes mellitus with diabetic chronic kidney disease; N18.4 Chronic kidney disease, stage 4 (severe); J44.9 Chronic obstructive pulmonary disease, unspecified; E11.21 Type 2 diabetes mellitus with diabetic nephropathy; E11.40 Type 2 diabetes mellitus with diabetic neuropathy, unspecified; E11.51 Type 2 diabetes mellitus with diabetic peripheral angiopathy without gangrene; E78.00 Pure hypercholesterolemia, unspecified; G47.33 Obstructive sleep apnea (adult) (pediatric); Z11.52 Encounter for screening for COVID-19; Z79.02 Long term (current) use of antithrombotics/antiplatelets; Z79.82 Long term (current) use of aspirin; Z79.4 Long term (current) use of insulin; Z79.84 Long term (current) use of oral hypoglycemic drugs; Z95.5 Presence of coronary angioplasty implant and graft; Z95.820 Peripheral vascular angioplasty status with implants and grafts; Z87.891 Personal history of nicotine dependence
CPT/HCPCS: 27447; 20610; 64447; 36415; 73560; 80048; 82948; 85025; 87635; 97110; 97116; 97161; 97165; 97530; 97535; A9270; C1713; J0171; J0690; J1040; J1100; J1170; J1596; J1885; J2250; J2270; J2371; J2405; J2704; J2795; J3010; J3370; J7120

== ENCOUNTER 2023-08-23 07:48 | Inpatient (IN) | payer OTHER, SELFPAY ==
[2023-08-23] VITALS (27 sets, daily range): BP systolic 109–194; BP diastolic 49–112; PULSE 44–79; RESP 10–22; TEMP 35.7–37; O2SAT 94–100; BMI 27.7
--- NOTE | ~2023-08-23 | XR_ITS ---
[id number] 08/23/2023 12:13 INDICATION: Post reduction left knee PROCEDURE: 2 views left knee COMPARISON: 08/23/2023 FINDINGS: Fracture, dislocation or subluxation is not identified. Interval reduction of the left knee .There is a joint effusion. The soft tissues appear within normal limits. No foreign bodies are iden tified. IMPRESSION: 1: Anatomic alignment of left knee post reduction. No underlying fracture. Reviewed, dictated and finalized at location A.
--- NOTE | ~2023-08-23 | XR_ITS ---
XR knee LT min 4V 08/23/2023 08:19 Indication: Left knee dislocation. Status post recent fall. Procedure: 4 views left knee Comparison: Comparison to multiple prior studies sequentially, with oldest reviewed study dated 09/23. Findings: There is a left total knee arthroplasty. There is posterior dislocation of the knee. No und erlying fracture is seen. Moderate soft tissue swelling. No significant joint effusion. Impression: 1: Left knee dislocation. No definite underlying fracture. Reviewed, dictated and finalized at location A. Impression: 1: Left knee dislocation. No definite underlying fracture.
--- NOTE | ~2023-08-23 | XR_ITS ---
[id number] 08/23/2023 22:06 Indication: Left knee dislocation Procedure: 2 views left knee Comparison: No prior studies for comparison. Findings: There is anatomic alignment of the left knee. There is a left total knee arthroplasty. Inte rval placement of external fixation device. Large joint effusion. Impression: 1: Anatomic alignment of left knee without evidence for underlying fracture. External fixation device present. Reviewed, dictated and finalized at location A. Impression: 1: Anatomic alignment of left knee without evidence for underlying fracture. Ex ternal fixation device present.
--- NOTE | ~2023-08-23 | XR_ITS ---
EXAMINATION: [id number] DATE: 08/26/2023 18:29 INDICATION: Left knee arthroplasty. Postop. TECHNIQUE: 2 views of left knee were obtained. COMPARISON: Left knee radiographs 08/23/2023 FINDINGS: There is a total left knee arthroplasty revision in near-anatomic alignment. No fracture. T here is gas in the soft tissues, consistent with recent history. Anterior skin arjun are noted. IMPRESSION: 1. Total left knee arthroplasty revision in near-anatomic alignment. Reviewed, dictated and finalized at location A.
--- NOTE | ~2023-08-23 | XR_ITS ---
EXAMINATION: XR chest 1V portable DATE: 08/25/2023 13:20 INDICATION: Peripheral vascular disease. Preop. TECHNIQUE: A single frontal view of the chest was obtained. COMPARISON: Chest 2 views 03/25/2021 FINDINGS: There is mild atelectasis in left lower lobe. No pleural effusion or pneumothorax. The hear t size is normal. IMPRESSION: 1. Mild atelectasis in left lower lobe. Reviewed, dictated and finalized at location E.
[2023-08-23] MEDS: ONDANSETRON INJ 4 MG/2 ML VIAL IV PUSH ×2 (07:55→14:33)
[2023-08-23] MEDS: MORPHINE SULFATE (*CRX) 4 MG/ML INJ IV PUSH ×2 (07:55→08:54)
[2023-08-23 08:13] LABS: Basophils Percent Auto 0.6 % (0.2-1.2); Eosinophils Absolute Auto 0.2 K/mm3 (0-0.3); Eosinophils Percent Auto 4.4 % (0-4.4); Hematocrit 35.7 % (37.0-47.0); Hemoglobin 11.2 g/dL (12.0-15.0); Immature Granulocyte Absolute 0.01 K/mm3 (0.00-0.031); Immature Granulocyte Percent A 0.2 % (0-0.5); Lymphocytes Absolute Auto 2.19 K/mm3 (0.9-3.2); Lymphocytes Percent Auto 43.7 % (18.3-44.2); Mean Corpuscular HGB Conc 31.4 g/dl (32-36); Mean Corpuscular Volume 92.5 fl (80-100); Mean Platelet Volume 9.6 fl (7.4-10.4); Monocytes Absolute Auto 0.5 K/mm3 (0.1-0.6); Monocytes Percent Auto 9.2 % (2.6-8.5); Neutrophils Absolute Auto 2.1 K/mm3 (1.3-6.7); Neutrophils Percent Auto 41.9 % (45.5-73.1); Platelet Count Result 298 k/mm3 (150-375); Red Blood Count 3.86 M/mm3 (4.2-5.4); Red Cell Distribution Width 15.2 % (11.5-14.5)
[2023-08-23 08:22] LABS: Anion Gap 6 mmol/L (8-16); Blood Urea Nitrogen 29 mg/dL (7-17); Calcium 10.8 mg/dL (8.4-10.2); Carbon Dioxide 28 mmol/L (22-30); Chloride 103 mmol/L (98-107); Estimated CRCL calculation 26 ml/min; Estimated Glomerular Filt Rate 33; Glucose 158 mg/dL (65-110); Potassium 4.3 mmol/L (3.4-5.0); Sodium 137 mmol/L (137-145)
[2023-08-23 08:34] LABS: Prothrombin Time 13.7 Seconds (11.1-14.7)
[2023-08-23] MEDS: SODIUM CHLORIDE 0.9% IV 1,000 ML 999 ML (08:42)
[2023-08-23] MEDS: PROPOFOL IV EMULSION 200 MG/20 ML VIAL (08:42)
--- NOTE | 2023-08-23 08:55 | PC.NURSE ---
0840: All equipment in room. Dr. Araujo at bedside. Time out performed. Consent signed. 0842: 80mg profolol given by Dr. Araujo. 0847: Dr. Araujo done with procedure. Unable to put back into place.
[2023-08-23] MEDS: HYDROmorphone HCL INJ (*CRX) 1 MG/ML SYR 0.5 MG IV PUSH ×4 (09:08→20:44)
--- NOTE | 2023-08-23 09:30 | ED.GENADULT ---
HPI - General Adult General Chief complaint: Extremity Injury, Lower Stated complaint: L knee pain Time Seen by Provider: 08/23/23 07:51 Source: patient, family and EMS Mode of arrival: EMS Limitations: no limitations History of Present Illness HPI narrative: 78-year-old with a history of hypertension, diabetes status post total knee replacement June 30, 2023 here with complaints of left knee pain and swelling. Patient states that she fell a week ago was ambulatory toe last night patient states that she woke up with severe knee pain and unable to ambulate . Onset (ago): day(s) Location: upper extremity and lower extremity (left knee) Severity: severe Pain Consistency: constant Relieving factors: none Exacerbating factors: none Associated symptoms: denies other symptoms Related Data Home Medications Medication Instructions Recorded Confirmed clopidogrel 75 mg tablet 75 mg PO DAILY 04/21/20 08/21/23 losartan 100 mg tablet 100 mg PO HS 04/21/20 08/21/23 spironolactone 25 mg tablet 25 mg PO QAM 04/04/22 08/21/23 chlorthalidone 25 mg tablet 25 mg PO QAM 04/05/22 08/21/23 [id number] 8 mg-folic 400 1 tablet PO DAILY 06/25/22 08/21/23 mcg-K 50 mcg-lutein 300 mcg tablet (Centrum Silver Women) aspirin 81 mg chewable tablet 81 mg PO DAILY 06/27/22 08/21/23 (Children's Aspirin) rabeprazole 20 mg tablet,delayed 20 mg PO QAM 03/03/23 08/21/23 release (AcipHex) carvedilol 25 mg tablet 25 mg PO Q12H 06/04/23 08/21/23 ergocalciferol (vitamin D2) 1,250 1,250 mcg PO WEEKLY 06/04/23 08/21/23 mcg (50,000 unit) capsule nifedipine 30 mg tablet,extended 30 mg PO HS 06/20/23 08/21/23 release 24 hr Allergies Allergy/AdvReac Type Severity Reaction Status Date / Time meperidine [From Demerol] Allergy Intermediate Hives Verified 08/23/23 07:56 erythromycin base AdvReac Intermediate Palpitation Verified 08/23/23 07:56 s Pork/Porcine Containing AdvReac Intermediate Hypertensio Verified 08/23/23 07:56 Products n [id number] Reductase AdvReac Intermediate body pain, Verified 08/23/23 07:56 Inhibitor BODY ACHES Review of Systems Constitutional: Constitutional: Reports no additional constitutional complaints Eyes: Eyes: Reports no additional eye complaints ENT: Reports system reviewed and no additional complaints, except as documented Cardiovascular: Cardiovascular: Reports no additional cardiovascular complaints Respiratory: Respiratory: Reports no additional respiratory complaints Gastrointestinal: Gastrointestinal: Reports no additional gastrointestinal complaints Musculoskeletal: Musculoskeletal: Reports as per HPI Neurologic: Reports system reviewed and no additional complaints, except as documented Endocrine: Endocrine: Reports no additional endocrine complaints [facility] Past Medical History Medical History Bilateral atherosclerotic renal artery stenosis Carpal tunnel syndrome on both sides CKD stage 4 due to type 2 diabetes mellitus Colon polyp COPD (chronic obstructive pulmonary disease) Diabetes Hemoglobin A1c 6.5 % March 2021 Diabetic nephropathy Diabetic neuropathy Family history of colon cancer in father High cholesterol Intolerant to statins History of stent insertion of renal artery Hypertension IBS (irritable bowel syndrome) Kidney disease Left knee DJD Obstructive sleep apnea Intolerant to CPAP Peripheral artery disease Right knee pain Type 2 diabetes mellitus Surgical History Surgical History H/O heart artery stent 03/2022 History of ankle surgery 1996, right ankle History of carpal tunnel release 1989, bilateral History of hysterectomy 1988, partial History of renal stent 03/2022 History of vascular surgery 2017, Bilateral lower extremity stents Hx of cholecystectomy 2005 S/P total knee arthroplasty LT TKA 07/01/23 Family Histor
[2023-08-23] MEDS: HYDROmorphone HCL INJ (*CRX) 1 MG/ML SYR IV PUSH (09:48)
--- NOTE | 2023-08-23 10:50 | WPDANESEPPF ---
Anes - Initial Pre Proc Eval Procedure: Left knee closed reduction Date/Time: 08/23/23 10:50 Surgeon: Mamadou Pre Op Diagnosis: L knee pain Patient Data Age: 78 Gender: F Height: 1.7 m Weight: 80.4 kg Last Vital Signs Temp 37.0 C 08/23/23 07:48 Pulse 71 08/23/23 09:43 Resp 16 08/23/23 09:43 BP 156/81 H 08/23/23 09:43 Pulse Ox 97 08/23/23 09:43 O2 Del Method Room Air 08/23/23 09:20 O2 Flow Rate 2 08/23/23 08:50 Allergies Allergy/AdvReac Type Severity Reaction Status Date / Time meperidine [From Demerol] Allergy Intermediate Hives Verified 08/23/23 07:56 erythromycin base AdvReac Intermediate Palpitation Verified 08/23/23 07:56 s Pork/Porcine Containing AdvReac Intermediate Hypertensio Verified 08/23/23 07:56 Products n Vflnjhr-PKJ-LtP Reductase AdvReac Intermediate body pain, Verified 08/23/23 07:56 Inhibitor BODY ACHES Home Medications Medication Instructions Recorded Confirmed Type clopidogrel 75 mg tablet 75 mg PO DAILY 04/21/20 08/21/23 History losartan 100 mg tablet 100 mg PO HS 04/21/20 08/21/23 History spironolactone 25 mg tablet 25 mg PO QAM 04/04/22 08/21/23 History chlorthalidone 25 mg tablet 25 mg PO QAM 04/05/22 08/21/23 History dlfcyakk-hgrq-wsjp 8 mg-folic 400 1 tablet PO DAILY 06/25/22 08/21/23 History mcg-K 50 mcg-lutein 300 mcg tablet (Centrum Silver Women) aspirin 81 mg chewable tablet 81 mg PO DAILY 06/27/22 08/21/23 History (Children's Aspirin) meclizine 25 mg tablet See Rx Instructions .Route 08/09/22 08/21/23 Rx .COMPLEX #30 ea blood-glucose transmitter (Dexcom #2 ea 09/25/22 08/21/23 Rx G6 Transmitter device) ezetimibe 10 mg tablet See Rx Instructions .Route 10/03/22 08/21/23 Rx .COMPLEX #0.1 ea blood-glucose sensor (Dexcom G6 #3 ea 02/07/23 08/21/23 Rx Sensor device) rabeprazole 20 mg tablet,delayed 20 mg PO QAM 03/03/23 08/21/23 History release (AcipHex) nitroglycerin 0.6 mg sublingual 0.6 mg sublingual Q5M PRN chest 05/20/23 08/21/23 Rx tablet pain #30 tabs carvedilol 25 mg tablet 25 mg PO Q12H 06/04/23 08/21/23 History ergocalciferol (vitamin D2) 1,250 1,250 mcg PO WEEKLY 06/04/23 08/21/23 History mcg (50,000 unit) capsule insulin aspart U-100 100 unit/mL See Rx Instructions .Route 06/04/23 08/21/23 Rx subcutaneous solution (Novolog .COMPLEX #45 mL U-100 Insulin aspart) nifedipine 30 mg tablet,extended 30 mg PO HS 06/20/23 08/21/23 History release 24 hr pitavastatin calcium 4 mg tablet 4 mg PO DAILY #30 tabs 06/27/23 08/21/23 Rx (Livalo) aspirin 325 mg tablet,delayed 325 mg PO Q12HR 28 days #56 tabs 07/03/23 08/21/23 Rx release hydrocodone 5 mg-acetaminophen 325 1 tablet PO Q6H PRN pain #20 tabs 08/13/23 08/21/23 Rx mg tablet Laboratory Tests 08/23/23 08:04 WBC 5.0 K/mm3 (4.5-10.0) RBC 3.86 L M/mm3 (4.2-5.4) Hgb 11.2 L g/dL (12.0-15.0) Hct 35.7 L % (37.0-47.0) MCV 92.5 fl (80-100) MCH 29.0 pg (26-34) MCHC 31.4 L g/dl (32-36) RDW 15.2 H % (11.5-14.5) Plt Count 298 D k/mm3 (150-375) MPV 9.6 fl (7.4-10.4) Immature Gran % (Auto) 0.2 % (0-0.5) Neut % (Auto) 41.9 L % (45.5-73.1) Lymph % (Auto) 43.7 % (18.3-44.2) [place] % (Auto) 9.2 H % (2.6-8.5) Eos % (Auto) 4.4 % (0-4.4) Baso % (Auto) 0.6 % (0.2-1.2) Lymph # (Auto) 2.19 K/mm3 (0.9-3.2) [place] # (Auto) 0.5 K/mm3 (0.1-0.6) Eos # (Auto) 0.2 K/mm3 (0-0.3) Baso # (Auto) 0.0 K/mm3 (0.0-0.1) Abs Immat Gran (auto) 0.01 K/mm3 (0.00-0.031) Absolute Neuts (auto) 2.1 K/mm3 (1.3-6.7) Absolute Nucleated RBC 0.000 K/mm3 (0.0-0.012) Nucleated RBC % 0.0 % (0.0-0.2) PT 13.7 Seconds (11.1-14.7) INR 1.0 Sodium 137 mmol/L (137-145) Potassium 4.3 mmol/L (3.4-5.0) Chloride 103 mmol/L (98-107) Carbon Dioxide 28 mmol/L (22-30) Anion Gap 6 L mmol/L (8-16) BUN 29 H mg/dL
[2023-08-23] MEDS: oxyCODONE/ACETAMINOPHEN (*CRX) 5-325 MG TABLET 1 TABLET PO (12:56)
--- NOTE | 2023-08-23 13:14 | PM.IMHP ---
H&P: HPI History of Present Illness Date/Time: 08/23/23 13:15 Chief Complaint: Left knee pain. Narrative: This is a very pleasant 78-year-old female status post left knee arthroplasty on 07/01/2023 with history of insulin-dependent type 2 diabetes mellitus, hypertension, peripheral arterial disease, dyslipidemia, and chronic obstructive pulmonary disease who presented to the emergency department via EMS from home for evaluation of left knee pain. The patient provides the following history. She reports ongoing but manageable discomfort in her left knee since surgery. She has been doing okay at home until she had a near fall on 08/10/2023 at which time her son was able to catch her before she fell. Since that time she has had increasing pain throughout the knee with instability. Frequently she feels as though the in the slides in and out of place. She feels as though her knee has been out of place since last night and she was unable to bear any weight on that today. On arrival to ED her knee was obviously dislocated and it was unable to be reduced in the ED. Dr. Garza was called and he was able to reduce the knee under anesthesia. She is being admitted in this setting for pain control and further decisions regarding management. At this time she is resting comfortably and the knee is immobilized. She denies paresthesias, skin color, and temperature changes distal to the left knee. She had an episode of hypoglycemia prior to eating lunch and she thinks that she may have over bolused herself before eating. Insulin pump was removed per nursing staff. Review of Systems Review of Systems: Twelve systems were reviewed. No fever, chills, or sweats. No recent cold or flu symptoms. She denies chest and pleuritic pain. No shortness of breath. She has some nausea with the hypoglycemia today. No vomiting or diarrhea. Except as documented, all other systems were reviewed and are negative. [facility] Past Medical History Medical History (Updated 08/23/23 @ 13:26 by Galina Camacho PA-C) Chronic kidney disease Stage 3b to 4. Chronic obstructive pulmonary disease Colon polyp Diabetic nephropathy Diabetic neuropathy Dyslipidemia Intolerant to statins. Hypertension Irritable bowel syndrome Obstructive sleep apnea Intolerant to CPAP Peripheral artery disease Type 2 diabetes mellitus Surgical History Surgical History (Updated 08/23/23 @ 13:20 by Galina Camacho PA-C) History of ankle surgery (1996) Right ankle. History of arthroplasty of left knee (07/01/23) History of bilateral carpal tunnel release (1989) History of cholecystectomy (2005) History of colonoscopy with polypectomy History of coronary artery stent placement (03/2022) History of partial hysterectomy (1988) History of renal stent (03/2022) History of vascular surgery (2017) Bilateral lower extremity stents. Family History Family History Father Colon cancer Mother Hypertension Heart disease Grandparent Breast cancer Sibling Diabetes mellitus brother, sister Colon cancer brother Son Diabetes mellitus Pancreatic cancer Daughter Hypertension Colon cancer Social History Social History Social History: Healthcare power of commercial real estate attorney: Denia Holbrook, daughter. Code status: Full code. Smoking packs per day: 1 Smoking cigarettes per day: 20.0 Years smoked: 20 Smoking pack-years: 20.00 Smoking status: Former smoker Alcohol intake: never Substance use: never Substance use type: does not use Do You Feel Safe in your Home?: Yes Lack of Transportation: No Lack of Food: Never True Current Housing: I Have Housing Concerned About Future Housing: No Difficulty Paying Gas/Electric Bills: No Difficulty Paying for Meds: No Currently Unemployed: No Education: Trade/Vocational Certificate Difficulty
--- NOTE | 2023-08-23 14:04 | ADMGEN ---
This patient, Sony Ricardo, was admitted to [facility] Surg Room 332-01. Patient/family oriented to hospital policies and general routines including ID bracelet, bed and alarms, visiting hours, pain management, procedures, bathroom and other care routines, personal items, smoking policy, room service/diet, and visiting hours. Information on how to activate the Rapid Response Team has been discussed. Patient/Family are encouraged to report perceived risks to care and to ask questions if they do not understand what they are told or what they should do.
[2023-08-23] MEDS: PANTOPRAZOLE 40 MG TABLET PO (15:51)
[2023-08-23 16:45] LABS: Glucose Point of Care 57 mg/dl (65-105)
[2023-08-23] MEDS: GLUCOSE ORAL GEL 15 GM OF GLUCSE IN 37.5 GM TUBE PO (16:47)
[2023-08-23 17:01] LABS: Glucose Point of Care 65 mg/dl (65-105)
--- NOTE | 2023-08-23 17:11 | PC.NURSE ---
Addendum entered by Sarah Maurice RN 08/23/23 17:18: Patient's medtronic insulin pump and connecting insulin placed into biohazard bag with patient's office administration it. Left at bedside of patient. Original Note: Notified Scarlet ROSARIO of blood sugar of 53. Gave patient oral glutose gel and disconnected patient from insulin pump, put at bedside of patient. Rechecked patient's blood sugar after 15 minutes passed from administration of glutose gel and patient was 65 mg/dl. Patient verbalizes complaints of lightheadedness/dizziness and nausea. Scarlet to bedside now to assess patient.
[2023-08-23 17:20] LABS: Glucose Point of Care 74 mg/dl (65-105)
[2023-08-23] MEDS: HYDROcodone/acetaminophen (*CRX) 5-325 MG TABLET 1 TAB PO (20:40)
[2023-08-23] MEDS: carvediloL 25 MG TABLET PO (20:54)
[2023-08-23] MEDS: LOSARTAN POTASSIUM 100 MG TABLET PO (20:55)
[2023-08-23] MEDS: NIFEdipine 30 MG TAB.ER.24 PO (20:55)
--- NOTE | 2023-08-23 21:14 | WPDANESEPPF ---
Anes - Initial Pre Proc Eval Procedure: Closed Reduction L Knee Date/Time: 08/23/23 21:14 Surgeon: Jerman Garza Pre Op Diagnosis: L Knee Pain Pre Op Diagnosis: Dislocated Left Knee Patient Data Age: 78 Gender: F Height: 1.7 m Weight: 80.4 kg Last Vital Signs Temp 35.7 C L 08/23/23 14:27 Pulse 79 08/23/23 20:54 Resp 18 08/23/23 13:30 BP 151/65 H 08/23/23 14:27 Pulse Ox 99 08/23/23 14:27 O2 Del Method Room Air 08/23/23 17:26 O2 Flow Rate 2 08/23/23 08:50 Allergies Allergy/AdvReac Type Severity Reaction Status Date / Time meperidine [From Demerol] Allergy Intermediate Hives Verified 08/23/23 14:12 erythromycin base AdvReac Intermediate Palpitation Verified 08/23/23 14:12 s Pork/Porcine Containing AdvReac Intermediate Hypertensio Verified 08/23/23 14:12 Products n Fltzxih-CSR-GcQ Reductase AdvReac Intermediate body pain, Verified 08/23/23 14:12 Inhibitor BODY ACHES Home Medications Medication Instructions Recorded Confirmed Type clopidogrel 75 mg tablet 75 mg PO DAILY 04/21/20 08/23/23 History losartan 100 mg tablet 100 mg PO HS 04/21/20 08/23/23 History spironolactone 25 mg tablet 25 mg PO QAM 04/04/22 08/23/23 History chlorthalidone 25 mg tablet 25 mg PO QAM 04/05/22 08/23/23 History pfeexktj-wbjh-fpnp 8 mg-folic 400 1 tablet PO DAILY 06/25/22 08/23/23 History mcg-K 50 mcg-lutein 300 mcg tablet (Centrum Silver Women) aspirin 81 mg chewable tablet 81 mg PO DAILY 06/27/22 08/23/23 History (Children's Aspirin) blood-glucose transmitter (Dexcom #2 ea 09/25/22 08/23/23 Rx G6 Transmitter device) blood-glucose sensor (Dexcom G6 #3 ea 02/07/23 08/23/23 Rx Sensor device) rabeprazole 20 mg tablet,delayed 20 mg PO QAM 03/03/23 08/23/23 History release (AcipHex) nitroglycerin 0.6 mg sublingual 0.6 mg sublingual Q5M PRN chest 05/20/23 08/23/23 Rx tablet pain #30 tabs carvedilol 25 mg tablet 25 mg PO Q12H 06/04/23 08/23/23 History ergocalciferol (vitamin D2) 1,250 1,250 mcg PO WEEKLY 06/04/23 08/23/23 History mcg (50,000 unit) capsule insulin aspart U-100 100 unit/mL See Rx Instructions .Route 06/04/23 08/23/23 Rx subcutaneous solution (Novolog .COMPLEX #45 mL U-100 Insulin aspart) nifedipine 30 mg tablet,extended 30 mg PO HS 06/20/23 08/23/23 History release 24 hr pitavastatin calcium 4 mg tablet 4 mg PO DAILY #30 tabs 06/27/23 08/23/23 Rx (Livalo) hydrocodone 5 mg-acetaminophen 325 1 tablet PO Q6H PRN pain #20 tabs 08/13/23 08/23/23 Rx mg tablet ezetimibe 10 mg tablet 10 mg PO DAILY 08/23/23 08/23/23 History meclizine 25 mg tablet 25 mg PO DAILY PRN Vertigo 08/23/23 08/23/23 History Laboratory Tests 08/23/23 08/23/23 08/23/23 08:04 16:42 16:58 WBC 5.0 K/mm3 (4.5-10.0) RBC 3.86 L M/mm3 (4.2-5.4) Hgb 11.2 L g/dL (12.0-15.0) Hct 35.7 L % (37.0-47.0) MCV 92.5 fl (80-100) MCH 29.0 pg (26-34) MCHC 31.4 L g/dl (32-36) RDW 15.2 H % (11.5-14.5) Plt Count 298 D k/mm3 (150-375) MPV 9.6 fl (7.4-10.4) Immature Gran % (Auto) 0.2 % (0-0.5) Neut % (Auto) 41.9 L % (45.5-73.1) Lymph % (Auto) 43.7 % (18.3-44.2) [place] % (Auto) 9.2 H % (2.6-8.5) Eos % (Auto) 4.4 % (0-4.4) Baso % (Auto) 0.6 % (0.2-1.2) Lymph # (Auto) 2.19 K/mm3 (0.9-3.2) [place] # (Auto) 0.5 K/mm3 (0.1-0.6) Eos # (Auto) 0.2 K/mm3 (0-0.3) Baso # (Auto) 0.0 K/mm3 (0.0-0.1) Abs Immat Gran (auto) 0.01 K/mm3 (0.00-0.031) Absolute Neuts (auto) 2.1 K/mm3 (1.3-6.7) Absolute Nucleated RBC 0.000 K/mm3 (0.0-0.012) Nucleated RBC % 0.0 % (0.0-0.2) PT 13.7 Seconds (11.1-14.7) INR 1.0 Sodium 137 mmol/L (137-145) Potassium 4.3 mmol/L (3.4-5.0) Chloride 103 mmol/L
[2023-08-23 21:50] LABS: Glucose Point of Care 121 mg/dl (65-105)
--- NOTE | 2023-08-23 22:03 | ECG_ITS ---
Measurements Intervals Acme Rate: 70 P: 81 MS: 148 QRS: -30 QRSD: 112 T: 117 QT: 317 QTc: 343 Interpretive Statements SINUS RHYTHM INTRAVENTRICULAR CONDUCTION DELAY LEFT VENTRICULAR HYPERTROPHY WITH ST-T CHANGE BORDERLINE R WAVE PROGRESSION, ANTERIOR LEADS BASELINE ARTIFACT- I, II, III, AVR, AVL, AVF, V1-V6 BORDERLINE ECG COMPARED TO ECG 09/24/2022 11:32:20 INTRAVENTRICULAR CONDUCTION DELAY NOW PRESENT Electronically Signed On 08-24-2023 7:41:04 CDT by Marcos Salcido D.O.
--- NOTE | 2023-08-23 22:20 | PM.CNOR ---
Assessment and Plan Assessment and plan (1) Left knee dislocation: Code(s): S83.105A - Unspecified dislocation of left knee, initial encounter Status: Acute Assessment and Plan: LEFT TKA INSTABILITY AFTER TRAUMATIC EVENT NOW WITH INCREASED INSTABILITY AND DISLOCATION, S/P CLOSED REDUCTION. I WOULD RECOMMEND LEFT TKA REVISION WITH POLY EXCHANGE VS FEMORAL COMPONENT REVISION TO POSTERIOR STABILIZED KNEE COMPONENT. HISTORY, EXAM AND RADIOGRAPHS REVIEWED WITH THE PATIENT. REFERRING PHYSICIAN RECORDS AND IMAGES REVIEWED. CONDITION, NATURE, ETIOLOGY AND COURSE OF NATURAL HISTORY REVIEWED. CONSERVATIVE AND OPERATIVE TREATMENT OPTIONS REVIEWED WELL THE RISKS AND BENEFITS OF EACH. DISCUSSED NONOPERATIVE AND OPERATIVE TREATMENT OPTIONS WITH THE PATIENT. THE PATIENT'S QUESTIONS WERE ANSWERED. THE PATIENT DESIRES OPERATIVE TREATMENT. DISCUSSED ___LEFT TKA POLYETHYLENE COMPONENT EXCHANGE WITH POSSIBLE REVISION TKA . RISKS OF SURGERY INCLUDING BUT NOT LIMITED TO NEUROVASCULAR DAMAGE, WOUND COMPLICATIONS, BLOOD CLOT, PULMONARY EMBOLUS, STROKE, AR, ANESTHETIC RISKS UP TO AND INCLUDING WERE REVIEWED. CONTINUED PAIN AND POSSIBLE DYSFUNCTION WERE EXPLAINED. NO GUARANTEES WERE OFFERED. THE PATIENT WILL BE REEVALUATED AGAIN TOMORROW MORNING WITH EVENT MANAGER AND OPTIONS WILL BE DISCUSSED. FAMILY AND PATIENT ARE AWARE AND AGREE TO CURRENT TREATMENT PLAN.. (2) Dislocation closed, knee: Qualifiers: Encounter type: initial encounter Laterality: left Qualified Code(s): S83.105A - Unspecified dislocation of left knee, initial encounter Code(s): S83.106A - Unspecified dislocation of unspecified knee, initial encounter Status: Acute History of Present Illness HPI Consult date: 08/23/23 Chief complaint: Dislocated Left Knee Narrative: I SAW AYLIN IN THE OFFICE THIS WEEK AND SHE HAD A POSITIVE QUADRICEPS ACTIVE TEST WITH A PCL TEAR. HER KNEE WAS STABLE OTHERWISE. I RECOMMEND A POLYETHYLENE COMPONENT REVISION AND SHE WAS PLACED IN A BRACE. THIS MORNING SHE TWISTED HER KNEE AND SUSTAINED A DISLOCATION OF THE LEFT TKA. I WAS CALLED TO THE ED AND A CLOSED REDUCTION UNDER SEDATION WAS PREFORMED WITH [facility] SHOWING GOOD REDUCTION. HER EXAM SHOWED HER TO BE NV INTACT WITH GOOD PULSES BOTH PALPABLE AND DOPPLERABLE. SHE HAD GOOD DORSI AND PLANTAR FLEXION OF THE FOOT AND SENSATION WAS INTACT. SHE WAS PLACED IN A KNEE IMMOBILIZER. THIS EVENING SHE WAS GETTING ON A BED LOPES AND SHE TURNED HER KNEE SHE SUSTAINED ANOTHER DISLOCATION. I WAS CALLED IN AND ANOTHER CLOSED REDUCTION WAS PREFORMED WITH [facility]RA[facility] SHOWING ANATOMIC REDUCTION. SHE WAS PLACED IN A LOCKED KNEE BRACE. SHE WAS NV INTACT WELL. SHE CURRENTLY IS COMFORTABLE AND RESING. SHE DENIES ANY NUMBNESS OR TINGLING TO THE FOOT. HER FOOT IS WARM TO TOUCH AND CAPILLARY REFILL IS BRISK. [facility] Past Medical History Medical History Chronic kidney disease Stage 3b to 4. Chronic obstructive pulmonary disease Colon polyp Diabetic nephropathy Diabetic neuropathy Dyslipidemia Intolerant to statins. Hypertension Irritable bowel syndrome Obstructive sleep apnea Intolerant to CPAP Peripheral artery disease Type 2 diabetes mellitus Surgical History Surgical History History of ankle surgery (1996) Right ankle. History of arthroplasty of left knee (07/01/23) History of bilateral carpal tunnel release (1989) History of cholecystectomy (2005) History of colonoscopy with polypectomy History of coronary artery stent placement (03/2022) History of partial hysterectomy (1988) History of renal stent (03/2022) History of vascular surgery (2017) Bilateral lower extremity stents. Family History Family History Father Colon cancer Mother Hypertension Heart disease Grandparent Br
[2023-08-23] MEDS: diazePAM INJ (*CRX) 10 MG/2 ML SYRINGE 5 MG IV PUSH (22:31)
[2023-08-23] MEDS: DEXTROSE 5%/LACTATED RINGERS 1,000 ML 75 ML IV CONT (23:46)
[2023-08-24] VITALS (9 sets, daily range): BP systolic 128–155; BP diastolic 64–68; PULSE 60–76; RESP 14–20; TEMP 36.6–36.8; O2SAT 97–99
[2023-08-24] MEDS: HYDROmorphone HCL INJ (*CRX) 1 MG/ML SYR 0.5 MG IV PUSH ×3 (03:40→20:47)
[2023-08-24 07:25] LABS: Hematocrit 32.9 % (37.0-47.0); Hemoglobin 10.2 g/dL (12.0-15.0); Mean Corpuscular Hemoglobin 28.7 pg (26-34); Mean Corpuscular Volume 92.7 fl (80-100); Mean Platelet Volume 9.8 fl (7.4-10.4); Platelet Count Result 271 k/mm3 (150-375); Red Blood Count 3.55 M/mm3 (4.2-5.4); White Blood Count 5.7 K/mm3 (4.5-10.0)
[2023-08-24 07:40] LABS: Alanine Aminotransferase 23 U/L (6-35); Albumin Level 3.8 g/dL (3.5-5.1); Alkaline Phosphatase 88 U/L (38-126); Anion Gap 2 mmol/L (8-16); Aspartate Amino Transferase 33 U/L (14-36); Bilirubin,Total 0.6 mg/dL (0.2-1.3); Blood Urea Nitrogen 22 mg/dL (7-17); Calcium 10.2 mg/dL (8.4-10.2); Carbon Dioxide 32 mmol/L (22-30); Chloride 101 mmol/L (98-107); Estimated CRCL calculation 28 ml/min; Estimated Glomerular Filt Rate 35; Glucose 160 mg/dL (65-110); Magnesium 2.1 mg/dL (1.6-2.3); Potassium 4.1 mmol/L (3.4-5.0); Sodium 135 mmol/L (137-145)
[2023-08-24 07:45] LABS: Glucose Point of Care 167 mg/dl (65-105)
--- NOTE | 2023-08-24 08:31 | PM.IMPN ---
Progress Note: A&P Assessment and Plan (1) Left knee dislocation: Code(s): S83.105A - Unspecified dislocation of left knee, initial encounter Status: Acute (2) Insulin dependent diabetes mellitus: Status: Acute (3) Chronic kidney disease: Code(s): N18.9 - Chronic kidney disease, unspecified Status: Acute (4) Chronic obstructive pulmonary disease: Code(s): J44.9 - Chronic obstructive pulmonary disease, unspecified Status: Acute (5) Dyslipidemia: Code(s): E78.5 - Hyperlipidemia, unspecified Status: Acute (6) Hypertension: Qualifiers: Hypertension type: primary hypertension Qualified Code(s): I10 - Essential (primary) hypertension Code(s): I10 - Essential (primary) hypertension Status: Acute (7) Peripheral vascular disease: Code(s): I73.9 - Peripheral vascular disease, unspecified Status: Acute Plan The patient presented to the emergency department via EMS from home for evaluation of left knee pain following a fall 1 week ago as detailed in HPI. She was taken to the OR and the knee was reduced under anesthesia per Dr. Garza. Analgesics are available as needed. Chronic kidney disease is stable on review of previous labs. No evidence to suggest COPD exacerbation. Blood pressures were reviewed and they have stable. She had an episode of hypoglycemia prior to lunch and nurse removed insulin pump. She get 0.5 units insulin an hour and she has been started on 12 units of Lantus. Initiate sliding scale insulin, Accu-Cheks, and hypoglycemic protocol. The rest of her home medications will be reviewed as appropriate. Findings and treatment plan were discussed with the patient. Questions were solicited and answered to satisfaction. The patient's medical management will be taken over by the hospitalist team in a.m. Subjective Date/time seen: 08/24/23 08:31 Interval history: HPI obtained from chart, This is a very pleasant 78-year-old female status post left knee arthroplasty on 07/01/2023 with history of insulin-dependent type 2 diabetes mellitus, hypertension, peripheral arterial disease, dyslipidemia, and chronic obstructive pulmonary disease who presented to the emergency department via EMS from home for evaluation of left knee pain. The patient provides the following history. She reports ongoing but manageable discomfort in her left knee since surgery. She has been doing okay at home until she had a near fall on 08/10/2023 at which time her son was able to catch her before she fell. Since that time she has had increasing pain throughout the knee with instability. Frequently she feels as though the in the slides in and out of place. She feels as though her knee has been out of place since last night and she was unable to bear any weight on that today. On arrival to ED her knee was obviously dislocated and it was unable to be reduced in the ED. Dr. Garza was called and he was able to reduce the knee under anesthesia. She is being admitted in this setting for pain control and further decisions regarding management. At this time she is resting comfortably and the knee is immobilized. She denies paresthesias, skin color, and temperature changes distal to the left knee. She had an episode of hypoglycemia prior to eating lunch and she thinks that she may have over bolused herself before eating. Insulin pump was removed per nursing staff. Review of Systems Review of Systems: All systems reviewed & are unremarkable except as noted in HPI and below Exam Narrative: General: well appearing, well developed, well nourished, appears stated age. HEENT: normocephalic, atraumatic. Mucous membranes moist. EOMI, PERRLA, bilateral sclera anicteric, no conjunctival injection. Neck supple without JVD, lymphadenopathy, or bruit. Respiratory: clear to auscultation bilaterally. No rales/rhonic/wheezes. Cardiovascular: Regular rate and rhythm, normal S1-S2 upon auscultation. No
[2023-08-24] MEDS: EZETIMIBE 10 MG TABLET PO (08:33)
[2023-08-24] MEDS: THERAPEUTIC MULTIVITAMINS/MINERALS TAB (*BKC) 1 TABLET PO (08:33)
[2023-08-24] MEDS: PANTOPRAZOLE 40 MG TABLET PO (08:33)
[2023-08-24] MEDS: SPIRONOLACTONE 25 MG TABLET PO (08:33)
[2023-08-24] MEDS: CLOPIDOGREL BISULFATE 75 MG TABLET PO (08:33)
[2023-08-24] MEDS: carvediloL 25 MG TABLET PO ×2 (08:33→20:48)
[2023-08-24] MEDS: ASPIRIN 81 MG CHEWABLE TABLET PO (08:33)
--- NOTE | 2023-08-24 10:42 | PM.PNORT ---
Progress Note: A&P Assessment and Plan (1) Left knee dislocation: Code(s): S83.105A - Unspecified dislocation of left knee, initial encounter Status: Acute Assessment and Plan: POST REDUCTION LEFT TKA. WILL PLAN FOR REVISION LEFT TKA THIS WEEK. PATIENT IS STABLE AND PAIN WELL CONTROLLED AND NV INTACT. Subjective Subjective Date/Time Seen: 08/24/23 10:42 Interval history: POST CLOSED REDUCTION LEFT KNEE DOING WELL TODAY. THE KNEE IS STABLE IN A LOCKED BRACE. SHE DENIES ANY CALF PAIN. SHE IS COMFORTABLE AND RESTING Exam Extrem: Other: VSS AFEBRILE KNEE IN BRACE AND REDUCED, CALF SOFT NON TENDER NV INTACT NEG HOMANS SIGN Objective Data Vital Signs Vital Signs: Vital Signs - 24 hr 08/23/23 10:52 08/23/23 11:00 08/23/23 11:15 Temperature Pulse Rate 54 L 49 L 50 L Respiratory Rate 19 18 18 Blood Pressure Pulse Oximetry Oxygen Delivery 08/23/23 11:30 08/23/23 11:46 08/23/23 11:47 Temperature Pulse Rate 58 L 53 L 51 L Respiratory Rate 19 10 L 16 Blood Pressure 109/49 L 109/49 L Pulse Oximetry 100 99 Oxygen Delivery 08/23/23 12:00 08/23/23 12:15 08/23/23 12:30 Temperature Pulse Rate 59 L 55 L 63 Respiratory Rate 16 16 18 Blood Pressure Pulse Oximetry 96 96 100 Oxygen Delivery 08/23/23 12:45 08/23/23 12:54 08/23/23 13:00 Temperature Pulse Rate 60 57 L 53 L Respiratory Rate 13 18 17 Blood Pressure 144/68 H 152/73 H Pulse Oximetry 100 98 96 Oxygen Delivery 08/23/23 13:01 08/23/23 13:15 08/23/23 13:16 Temperature Pulse Rate 55 L 52 L 44 L Respiratory Rate 13 12 13 Blood Pressure 144/68 H Pulse Oximetry 97 95 94 Oxygen Delivery 08/23/23 13:30 08/23/23 14:27 08/23/23 17:26 Temperature 35.7 C L Pulse Rate 50 L 48 L Respiratory Rate 18 Blood Pressure 151/65 H Pulse Oximetry 98 99 Oxygen Delivery Room Air 08/23/23 20:54 08/23/23 22:00 08/23/23 20:00 Temperature 36.4 C Pulse Rate 79 67 Respiratory Rate 22 H Blood Pressure 194/79 H Pulse Oximetry 100 Oxygen Delivery Room Air 08/24/23 00:00 08/24/23 06:00 08/24/23 04:00 Temperature 36.8 C Pulse Rate 60 71 68 Respiratory Rate 20 Blood Pressure 155/66 H Pulse Oximetry 99 Oxygen Delivery 08/24/23 07:55 08/24/23 08:33 08/24/23 08:02 Temperature Pulse Rate 68 68 Respiratory Rate Blood Pressure Pulse Oximetry Oxygen Delivery Room Air Intake/Output Intake/Output: Intake & Output 08/21/23 08/22/23 08/23/23 08/24/23 23:59 23:59 23:59 23:59 Intake Total 2220 300 Output Total 1000 Balance 2220 -700 Meds/Results Medications: Active Medications Generic Name Dose Route Start Last Admin Trade Name Freq PRN Reason Stop Dose Admin Acetaminophen 650 mg 08/23/23 12:28 Acetaminophen 325 Mg Tablet PO Q4H PRN Mild Pain (1-3) or Fever Hydrocodone Bitart/Acetaminophen 1 tab 08/23/23 14:52 08/23/23 20:40 Hydrocodone/Acetaminophen (*Crx) 5-325 Mg Tablet PO 1 tab Q6H PRN Administration pain 4-6 Aspirin 81 mg 08/24/23 09:00 08/24/23 08:33 Aspirin 81 Mg Chewable Tablet PO 81 mg DAILY KEYLA Administration Carvedilol 25 mg 08/23/23 21:00 08/24/23 08:33 Carvedilol 25 Mg Tablet PO 25 mg Q12H KEYLA Administration Chlorthalidone 25 mg 08/25/23 09:00 Chlorthalidone 25 Mg Tablet PO QAM [facility] Clopidogrel Bisulfate 75 mg 08/24/23 09:00 08/24/23 08:33 Clopidogrel Bisulfate 75 Mg Tablet PO 75 mg DAILY KEYLA Administration Dextrose 12.5 gm 08/23/23 20:47 Dextrose 50% 25 Gm/50 Ml Syringe IV PUSH PRN PRN Hypoglycemia Protocol Ezetimibe 10 mg 08/24/23 09:00 08/24/23 08:33 Ezetimibe 10 Mg Tablet PO 10 mg DAILY KEYLA Administration Glucagon 1 mg 08/23/23 20:47 Glucagon For Inj 1 Mg Vial IM PRN PRN Hypoglycemia Protocol Glucose 15 gm 08/23/23 20:47 Glucose Oral Gel 15 Gm Of Glucs
[2023-08-24] MEDS: HYDROcodone/acetaminophen (*CRX) 5-325 MG TABLET 1 TAB PO ×3 (11:11→22:55)
[2023-08-24 11:21] LABS: Glucose Point of Care 129 mg/dl (65-105)
--- NOTE | 2023-08-24 12:02 | PHAR ---
Home medication identified. Pitavastatin 4mg tablet. Returned to [address] [place] [address]
--- NOTE | 2023-08-24 13:14 | PM.IMPN ---
Progress Note: A&P Assessment and Plan (1) Left knee dislocation: Code(s): S83.105A - Unspecified dislocation of left knee, initial encounter Status: Acute (2) Dyslipidemia: Code(s): E78.5 - Hyperlipidemia, unspecified Status: Acute (3) Chronic kidney disease: Code(s): N18.9 - Chronic kidney disease, unspecified Status: Acute (4) Chronic obstructive pulmonary disease: Code(s): J44.9 - Chronic obstructive pulmonary disease, unspecified Status: Acute (5) Diabetes mellitus: Qualifiers: Diabetes mellitus type: type 2 Diabetes mellitus halfway insulin use: with longshore equipment operator use Diabetes mellitus complication status: without complication Qualified Code(s): E11.9 - Type 2 diabetes mellitus without complications; Z79.4 - USP (current) use of insulin Code(s): E11.9 - Type 2 diabetes mellitus without complications Status: Acute Plan 78-year-old female status post left knee arthroplasty on 07/01/2023 with history of insulin-dependent diabetes type 2, hypertension, peripheral artery disease, dyslipidemia intolerant to statins, COPD presents from home for evaluation of left knee pain. The patient lives at home by herself. Reported on 08/10/2023 the patient felt unsteady and almost fell but a son was able to catcher and thereafter she feels like her knee has been unstable and she has had pain. In [place] ER on 08/22/2023 left knee found to be dislocated and reduction attempt was unsuccessful. Thereafter Dr. Cedillo arrived and was able to reduce it under anesthesia. Plan for OR on Friday. It appears orthopedic surgery has placed her on aspirin 325 mg. She is also on Plavix for peripheral artery disease. At this moment the patient rest comfortably. Pain medication regimen discussed with family and they are okay with that. We are where the patient has COPD and narcotics and sedatives should be used judiciously. CKD is stable On admission her blood sugar was 57 it is reported that she was not eating. Does have an insulin pump and that has been turned off for now. Will continue with low-dose sliding scale and encouraged the patient to eat and increase the sliding scale and any basal bolus insulin dosings as needed. FEN: Discontinue dextrose infusion. Encourage oral intake. Diabetic diet GI prophylaxis: Not indicated DVT prophylaxis: Aspirin 325 mg Lines: Peripheral IV Code Status: Full code Dispo: Stable on medical floor Subjective Date/time seen: 08/24/23 13:14 Interval history: Patient resting comfortably in bed asleep. Per the 6 family members at the bedside patient has been in agonizing pain in finally able to rest so requested she not be awakened. Otherwise to have no complaints only wanted to sort out her pain medication regimen. Review of Systems Review of Systems: All systems reviewed & are unremarkable except as noted in HPI and below (Subjective) Exam Const: General: comfortable and no acute distress Other: Resting comfortably Eyes: Pupils: Equal, round and reactive pupils present Neck: Neck: supple Resp: Effort & Inspection: normal respiratory effort Auscultation: clear to auscultation bilaterally Cardio: Rate: regular rate Rhythm: regular rhythm GI: GI Palp: Yes Soft to palpation and No Tenderness to palpation present (GI) Extrem: General: no edema Other: Left lower extremity in a lock brace Objective Data Vital Signs Vital Signs: Vital Signs - 24 hr 08/23/23 13:15 08/23/23 13:16 08/23/23 13:30 Temperature Pulse Rate 52 L 44 L 50 L Respiratory Rate 12 13 18 Blood Pressure 144/68 H Pulse Oximetry 95 94 98 Oxygen Delivery 08/23/23 14:27 08/23/23 17:26 08/23/23 20:54 Temperature 96.3 F L Pulse Rate 48 L 79 Respiratory Rate Blood Pressure 151/65 H Pulse Oximetry 99 Oxygen Delivery Room Air 08/23/23 22:00 08/23/23 20:00 08/24/23 00:0
[2023-08-24 16:34] LABS: Glucose Point of Care 173 mg/dl (65-105)
[2023-08-24] MEDS: ASPIRIN 325 MG ENTERIC TABLET PO (16:55)
[2023-08-24 20:37] LABS: Glucose Point of Care 140 mg/dl (65-105)
[2023-08-24] MEDS: LOSARTAN POTASSIUM 100 MG TABLET PO (20:48)
[2023-08-24] MEDS: ONDANSETRON INJ 4 MG/2 ML VIAL IV PUSH (20:48)
[2023-08-24] MEDS: NIFEdipine 30 MG TAB.ER.24 PO (20:48)
[2023-08-24] MEDS: diazePAM (*CRX) 5 MG TABLET PO (23:05)
[2023-08-25] VITALS (13 sets, daily range): BP systolic 132–147; BP diastolic 55–75; PULSE 55–69; RESP 15–20; TEMP 36.1–36.6; O2SAT 95–100; BMI 28.5
[2023-08-25] MEDS: ONDANSETRON INJ 4 MG/2 ML VIAL IV PUSH ×2 (01:22→06:45)
[2023-08-25] MEDS: HYDROmorphone HCL INJ (*CRX) 1 MG/ML SYR 0.5 MG IV PUSH ×5 (01:22→23:28)
[2023-08-25] MEDS: HYDROcodone/acetaminophen (*CRX) 5-325 MG TABLET 1 TAB PO ×4 (03:50→23:26)
[2023-08-25 06:34] LABS: Hematocrit 31.9 % (37.0-47.0); Mean Corpuscular HGB Conc 31.3 g/dl (32-36); Mean Corpuscular Hemoglobin 29.3 pg (26-34); Mean Corpuscular Volume 93.5 fl (80-100); Mean Platelet Volume 9.9 fl (7.4-10.4); Platelet Count Result 256 k/mm3 (150-375); Red Blood Count 3.41 M/mm3 (4.2-5.4); Red Cell Distribution Width 14.9 % (11.5-14.5)
[2023-08-25 06:43] LABS: Anion Gap 5 mmol/L (8-16); Blood Urea Nitrogen 22 mg/dL (7-17); Calcium 10.1 mg/dL (8.4-10.2); Carbon Dioxide 29 mmol/L (22-30); Chloride 100 mmol/L (98-107); Estimated CRCL calculation 26 ml/min; Estimated Glomerular Filt Rate 33; Glucose 164 mg/dL (65-110); Magnesium 2.2 mg/dL (1.6-2.3); Potassium 3.9 mmol/L (3.4-5.0); Sodium 134 mmol/L (137-145)
[2023-08-25 07:27] LABS: Glucose Point of Care 167 mg/dl (65-105)
[2023-08-25] MEDS: CLOPIDOGREL BISULFATE 75 MG TABLET PO (08:38)
[2023-08-25] MEDS: PANTOPRAZOLE 40 MG TABLET PO (08:38)
[2023-08-25] MEDS: EZETIMIBE 10 MG TABLET PO (08:38)
[2023-08-25] MEDS: carvediloL 25 MG TABLET PO ×2 (08:38→21:17)
[2023-08-25] MEDS: SPIRONOLACTONE 25 MG TABLET PO (08:38)
[2023-08-25] MEDS: CHLORTHALIDONE 25 MG TABLET PO (08:38)
[2023-08-25] MEDS: THERAPEUTIC MULTIVITAMINS/MINERALS TAB (*BKC) 1 TABLET PO (08:38)
[2023-08-25] MEDS: ASPIRIN 325 MG ENTERIC TABLET PO ×2 (08:39→16:47)
[2023-08-25] MEDS: HYDROmorphone HCL INJ (*CRX) 1 MG/ML SYR IV PUSH (09:23)
[2023-08-25 11:10] LABS: Glucose Point of Care 134 mg/dl (65-105)
--- NOTE | 2023-08-25 12:25 | WPDANESEPPF ---
Anes - Initial Pre Proc Eval Procedure: Operation Date: 08/26/23 14:00 Proposed Procedures p Polyethylene Component Exchange Left Knee, Possible Femoral Revision - Jerman Garza MD Date/Time: 08/25/23 12:25 Surgeon: Ryder Mejia MD Pre Op Diagnosis: Dislocated Left Knee Patient Data Age: 78 Gender: F Height: 1.7 m Weight: 82.6 kg Last Vital Signs Temp 36.1 C L 08/25/23 05:19 Pulse 64 08/25/23 05:19 Resp 18 08/25/23 05:19 BP 143/57 H 08/25/23 05:19 Pulse Ox 97 08/25/23 08:58 O2 Del Method Room Air 08/25/23 08:58 O2 Flow Rate 2 08/23/23 08:50 FiO2 21 08/25/23 08:58 Allergies Allergy/AdvReac Type Severity Reaction Status Date / Time meperidine [From Demerol] Allergy Intermediate Hives Verified 08/23/23 14:12 erythromycin base AdvReac Intermediate Palpitation Verified 08/23/23 14:12 s Pork/Porcine Containing AdvReac Intermediate Hypertensio Verified 08/23/23 14:12 Products n [id number]-[id number]-[id number] Reductase AdvReac Intermediate body pain, Verified 08/23/23 14:12 Inhibitor BODY ACHES Home Medications Medication Instructions Recorded Confirmed Type clopidogrel 75 mg tablet 75 mg PO DAILY 04/21/20 08/23/23 History losartan 100 mg tablet 100 mg PO HS 04/21/20 08/23/23 History spironolactone 25 mg tablet 25 mg PO QAM 04/04/22 08/23/23 History chlorthalidone 25 mg tablet 25 mg PO QAM 04/05/22 08/23/23 History nvhtbpif-jiar-mpms 8 mg-folic 400 1 tablet PO DAILY 06/25/22 08/23/23 History mcg-K 50 mcg-lutein 300 mcg tablet (Centrum Silver Women) aspirin 81 mg chewable tablet 81 mg PO DAILY 06/27/22 08/23/23 History (Children's Aspirin) blood-glucose transmitter (Dexcom #2 ea 09/25/22 08/23/23 Rx G6 Transmitter device) blood-glucose sensor (Dexcom G6 #3 ea 02/07/23 08/23/23 Rx Sensor device) rabeprazole 20 mg tablet,delayed 20 mg PO QAM 03/03/23 08/23/23 History release (AcipHex) nitroglycerin 0.6 mg sublingual 0.6 mg sublingual Q5M PRN chest 05/20/23 08/23/23 Rx tablet pain #30 tabs carvedilol 25 mg tablet 25 mg PO Q12H 06/04/23 08/23/23 History ergocalciferol (vitamin D2) 1,250 1,250 mcg PO WEEKLY 06/04/23 08/23/23 History mcg (50,000 unit) capsule insulin aspart U-100 100 unit/mL See Rx Instructions .Route 06/04/23 08/23/23 Rx subcutaneous solution (Novolog .COMPLEX #45 mL U-100 Insulin aspart) nifedipine 30 mg tablet,extended 30 mg PO HS 06/20/23 08/23/23 History release 24 hr pitavastatin calcium 4 mg tablet 4 mg PO DAILY #30 tabs 06/27/23 08/23/23 Rx (Livalo) hydrocodone 5 mg-acetaminophen 325 1 tablet PO Q6H PRN pain #20 tabs 08/13/23 08/23/23 Rx mg tablet ezetimibe 10 mg tablet 10 mg PO DAILY 08/23/23 08/23/23 History meclizine 25 mg tablet 25 mg PO DAILY PRN Vertigo 08/23/23 08/23/23 History Laboratory Tests 08/24/23 08/24/23 08/25/23 16:25 20:30 05:40 WBC 5.0 K/mm3 (4.5-10.0) RBC 3.41 L M/mm3 (4.2-5.4) Hgb 10.0 L g/dL (12.0-15.0) Hct 31.9 L % (37.0-47.0) MCV 93.5 fl (80-100) MCH 29.3 pg (26-34) MCHC 31.3 L g/dl (32-36) RDW 14.9 H % (11.5-14.5) Plt Count 256 k/mm3 (150-375) MPV 9.9 fl (7.4-10.4) Sodium 134 L mmol/L (137-145) Potassium 3.9 mmol/L (3.4-5.0) Chloride 100 mmol/L (98-107) Carbon Dioxide 29 mmol/L (22-30) Anion Gap 5 L mmol/L (8-16) BUN 22 H mg/dL (7-17) Creatinine 1.80 H mg/dL (0.7-1.0) Estim Creat Clear Calc 26 ml/min Estimated GFR 33 L (59 - ) Glucose 164 H mg/dL (65-110) POC Capillary Glucose 173 H mg/dl 140 H mg/dl (65-105) (65-105) Calcium 10.1 mg/dL (8.4-10.2) Magnesium 2.2 mg/dL (1.6-2.3) 08/25/23 08/25/23 07:25 11:08 WBC RBC Hgb Hct MCV MCH MCHC
--- NOTE | 2023-08-25 12:26 | PM.IMPN ---
Progress Note: A&P Assessment and Plan (1) Left knee dislocation: Code(s): S83.105A - Unspecified dislocation of left knee, initial encounter Status: Acute (2) Dyslipidemia: Code(s): E78.5 - Hyperlipidemia, unspecified Status: Acute (3) Chronic kidney disease: Code(s): N18.9 - Chronic kidney disease, unspecified Status: Acute (4) Chronic obstructive pulmonary disease: Code(s): J44.9 - Chronic obstructive pulmonary disease, unspecified Status: Acute (5) Diabetes mellitus: Qualifiers: Diabetes mellitus type: type 2 Diabetes mellitus correction insulin use: with exterminator termite use Diabetes mellitus complication status: without complication Qualified Code(s): E11.9 - Type 2 diabetes mellitus without complications; Z79.4 - ferry terminal agent (current) use of insulin Code(s): E11.9 - Type 2 diabetes mellitus without complications Status: Acute Plan 78-year-old female status post left knee arthroplasty on 07/01/2023 with history of insulin-dependent diabetes type 2, hypertension, peripheral artery disease status post vascular surgery?, CKD, CAD status post stents, dyslipidemia intolerant to statins, COPD, status post left TKA in 06/2023 presents from home for evaluation of left knee pain. The patient lives at home by herself. Reported on 08/10/2023 the patient felt unsteady and almost fell but a son was able to catcher and thereafter she feels like her knee has been unstable and she has had pain. In [place] ER on 08/22/2023 left knee found to be dislocated and reduction attempt was unsuccessful. Thereafter Dr. Cedillo arrived and was able to reduce it under anesthesia. Status post left TKA, recurrent dislocation -failed attempt at reduction in ER. Second attempt successful with Dr. Cedillo in the ER under anesthesia. On 08/24 the patient loosen her brace and developed another dislocation. Currently undergoing bedside reduction with Dr. Cedillo and Anesthesia team. -pain control per orthopedic surgeon. Patient will need to be on continuous pulse ox considering large dose sedatives/narcotics and her history of COPD. -plan for OR tomorrow. NPO at midnight. -Dr. Cedillo plan for aspirin postop for DVT prophylaxis. The patient is a poor historian however she has charted CAD status post stents and peripheral artery disease status post vascular surgery. Her home antiplatelet is Plavix. Will to elicit further history from the family and consider all this for aspirin/Plavix use postop. -she does not appear to be in any respiratory or cardiac acute deconditioning. EKG obtained. Check portable chest x-ray. She is a moderate risk candidate for a low/moderate risk procedure. CKD -appears stable. Continue to monitor closely considering operation on Friday Insulin-dependent diabetes mellitus -she has insulin pump at home. Episode of hypoglycemia on admission due to possibly over administration and poor oral intake. Pump discontinued. Continue Accu-Cheks with hypoglycemia protocol and sliding scale only. Readjust postop. Peripheral artery disease -as above CAD status post stents -as and plan 1 COPD -appears to be stable. FEN: Saline lock IV. Carbohydrate consistent heart healthy diet. GI prophylaxis: Not indicated DVT prophylaxis: Aspirin 325 mg. Hold Plavix. Lines: Peripheral IV Code Status: Full code Dispo: Stable on medical floor Subjective Date/time seen: 08/25/23 12:26 Interval history: She loosened her brace and developed a recurrent knee dislocation on the left. Per nursing report she was screaming in agony and has since received Dilaudid. Currently resting in bed comfortably awaiting bedside reduction with Dr. Cedillo Review of Systems Review of Systems: All systems reviewed & are unremarkable except as noted in HPI and below (Subjective) Exam Const: General: comfortable and no acute distress Other: A&O x3 Eyes:
--- NOTE | 2023-08-25 12:44 | PC.NURSE ---
Dr Garza to bedside at 12:20 to perform left knee reduction. Baseline vitals taken and patient placed on telemetry with continuous pulse oximetry.
[2023-08-25] MEDS: diazePAM (*CRX) 5 MG TABLET PO (13:38)
[2023-08-25 16:14] LABS: Glucose Point of Care 192 mg/dl (65-105)
--- NOTE | 2023-08-25 16:50 | WPDPN ---
Progress Note: A&P Assessment and Plan (1) Left knee dislocation: Code(s): S83.105A - Unspecified dislocation of left knee, initial encounter Status: Acute Assessment and Plan: S/P RECURRENT DISLOCATION LEFT TKA. SHE UNDERWENT CLOSED REDUCTION TODAY AGAIN AND TOLERATED THE PROCEDURE WELL. RECOMMEND REVISION TKA TMRW. (2) S/P total knee arthroplasty: Qualifiers: Laterality: left Qualified Code(s): Z96.652 - Presence of left artificial knee joint Code(s): Z96.659 - Presence of unspecified artificial knee joint Status: Acute Subjective Date/time seen: 08/25/23 16:50 Interval history: AYLIN WAS UNDOING HER BRACE TODAY FOR MORE ROOM IN HER LEG. SHE THEN FELT THE KNEE POP AND SUSTAINED ANOTHER DISLOCATION. PATIENT WAS GIVEN SEDATION BY THE ANESTHESIA TEAM AND THE LEFT TKA WAS REDUCED AND PLACED BACK INTO HER LOCKED KNEE BRACE. SHE IS RESTING COMFORTABLE. SHE IS NV INTACT Exam Extrem: Other: VSS AFEBRILE WOUND HEALED WITH NICE SCAR. KNEE JOINT IS REDUCED. THERE IS SWELLING ABOUT THE KNEE CAP. NV INTACT WITH GOOD PULSES AND PLANTAR AND DORSIFLEXION INTACT, CAP REFILL IS BRISK.CALF IS SOFT NON TENDER NEG HOMANS SIGN Objective Data Vital Signs Vital Signs: Vital Signs - 24 hr 08/24/23 21:04 08/25/23 05:19 08/25/23 08:58 Temperature 36.6 C 36.1 C L Pulse Rate 76 64 Respiratory Rate 17 18 Blood Pressure 145/68 H 143/57 H Pulse Oximetry 98 98 97 Oxygen Delivery Room Air Fraction of Inspired Oxygen 08/25/23 08:00 08/25/23 12:15 08/25/23 12:50 Temperature 36.4 C L 36.6 C Pulse Rate 62 61 Respiratory Rate 15 18 Blood Pressure 137/62 133/65 Pulse Oximetry 95 97 Oxygen Delivery Room Air Fraction of Inspired Oxygen 08/25/23 13:05 08/25/23 13:35 08/25/23 14:35 Temperature 36.5 C 36.6 C 36.6 C Pulse Rate 61 61 62 Respiratory Rate 18 18 18 Blood Pressure 142/68 H 144/75 H 142/58 H Pulse Oximetry 98 100 100 Oxygen Delivery Fraction of Inspired Oxygen Intake/Output Intake/Output: Intake & Output 08/22/23 08/23/23 08/24/23 08/25/23 23:59 23:59 23:59 23:59 Intake Total 8625 1210 865 Output Total 2500 1000 Balance 7847 -6212 -622 Meds/Results Medications: Active Medications Generic Name Dose Route Start Last Admin Trade Name Freq PRN Reason Stop Dose Admin Hydrocodone Bitart/Acetaminophen 1 tab 08/24/23 13:13 08/25/23 08:36 Hydrocodone/Acetaminophen (*Crx) 5-325 Mg Tablet PO 1 tab Q4H PRN Administration Pain Rated 4-6 Aspirin 325 mg 08/24/23 17:00 08/25/23 08:39 Aspirin 325 Mg Enteric Tablet PO 325 mg BID KEYLA Administration Carvedilol 25 mg 08/23/23 21:00 08/25/23 08:38 Carvedilol 25 Mg Tablet PO 25 mg Q12H KEYLA Administration Chlorthalidone 25 mg 08/25/23 09:00 08/25/23 08:38 Chlorthalidone 25 Mg Tablet PO 25 mg QAM KEYLA Administration Sodium Chloride 37.7 ml/ 0 ml 08/26/23 06:00 Morphine Sulfate 2 mg/ INFILTRATE 08/26/23 06:01 Ropivacaine 200 mg/ Ketorolac ONCE ONE Tromethamine 15 mg/ Epinephrine HCl 0.3 mg Dextrose 12.5 gm 08/23/23 20:47 Dextrose 50% 25 Gm/50 Ml Syringe IV PUSH PRN PRN Hypoglycemia Protocol Diazepam 5 mg 08/24/23 22:51 08/25/23 13:38 Diazepam (*Crx) 5 Mg Tablet PO 5 mg BID PRN Administration Anxiety Ezetimibe 10 mg 08/24/23 09:00 08/25/23 08:38 Ezetimibe 10 Mg Tablet PO 10 mg DAILY KEYLA Administration Glucagon 1 mg 08/23/23 20:47 Glucagon For Inj 1 Mg Vial IM PRN PRN Hypoglycemia Protocol Glucose 15 gm 08/23/23 20:47 Glucose Oral Gel 15 Gm Of Glucse In 37.5 Gm Tube PO PRN PRN Hypoglycemia Protocol Hydromorphone HCl 0.5 mg 08/23/23 12:28 08/25/23 15:30 Hydromorphone Hcl Inj (*Crx) 1 Mg/Ml Syr IV PUSH 0.5 mg Q4H PRN Administration Pain Rated 7-10 Dextrose 1,000 mls @ 100 mls/hr 08/23/23 20:47 Dextrose 5% 1,000 M
[2023-08-25 20:24] LABS: Glucose Point of Care 122 mg/dl (65-105)
[2023-08-25] MEDS: NIFEdipine 30 MG TAB.ER.24 PO (21:17)
[2023-08-25] MEDS: LOSARTAN POTASSIUM 100 MG TABLET PO (21:17)
[2023-08-26] VITALS (15 sets, daily range): BP systolic 126–144; BP diastolic 51–68; PULSE 66–95; RESP 14–21; TEMP 35.8–37; O2SAT 92–100
[2023-08-26] MEDS: diazePAM (*CRX) 5 MG TABLET PO (02:29)
[2023-08-26] MEDS: HYDROmorphone HCL INJ (*CRX) 1 MG/ML SYR 0.5 MG IV PUSH ×2 (06:11→13:07)
[2023-08-26 07:05] LABS: Basophils Percent Auto 0.4 % (0.2-1.2); Eosinophils Absolute Auto 0.2 K/mm3 (0-0.3); Eosinophils Percent Auto 4.2 % (0-4.4); Hematocrit 33.7 % (37.0-47.0); Hemoglobin 10.5 g/dL (12.0-15.0); Immature Granulocyte Absolute 0.01 K/mm3 (0.00-0.031); Immature Granulocyte Percent A 0.2 % (0-0.5); Lymphocytes Absolute Auto 2.06 K/mm3 (0.9-3.2); Lymphocytes Percent Auto 36.4 % (18.3-44.2); Mean Corpuscular HGB Conc 31.2 g/dl (32-36); Mean Corpuscular Hemoglobin 28.5 pg (26-34); Mean Corpuscular Volume 91.6 fl (80-100); Mean Platelet Volume 9.8 fl (7.4-10.4); Monocytes Absolute Auto 0.5 K/mm3 (0.1-0.6); Monocytes Percent Auto 8.7 % (2.6-8.5); Neutrophils Absolute Auto 2.8 K/mm3 (1.3-6.7); Neutrophils Percent Auto 50.1 % (45.5-73.1); Platelet Count Result 263 k/mm3 (150-375); Red Blood Count 3.68 M/mm3 (4.2-5.4); Red Cell Distribution Width 14.5 % (11.5-14.5); White Blood Count 5.7 K/mm3 (4.5-10.0)
[2023-08-26 07:17] LABS: Anion Gap 2 mmol/L (8-16); Blood Urea Nitrogen 23 mg/dL (7-17); Calcium 10.8 mg/dL (8.4-10.2); Carbon Dioxide 34 mmol/L (22-30); Chloride 97 mmol/L (98-107); Estimated CRCL calculation 27 ml/min; Estimated Glomerular Filt Rate 33; Glucose 138 mg/dL (65-110); Magnesium 2.2 mg/dL (1.6-2.3); Potassium 4.5 mmol/L (3.4-5.0); Sodium 133 mmol/L (137-145)
[2023-08-26 07:21] LABS: INR 1.1; Prothrombin Time 14.1 Seconds (11.1-14.7)
[2023-08-26 08:00] LABS: Glucose Point of Care 145 mg/dl (65-105)
[2023-08-26] MEDS: EZETIMIBE 10 MG TABLET PO (09:18)
[2023-08-26] MEDS: carvediloL 25 MG TABLET PO ×2 (09:18→21:23)
[2023-08-26] MEDS: PANTOPRAZOLE 40 MG TABLET PO (09:18)
[2023-08-26 11:46] LABS: Glucose Point of Care 122 mg/dl (65-105)
--- NOTE | 2023-08-26 13:02 | WPDANESEPPF ---
Anes - Initial Pre Proc Eval Procedure: Operation Date: 08/26/23 14:00 Proposed Procedures p Polyethylene Component Exchange Left Knee, Possible Femoral Revision - Jerman Garza MD Date/Time: 08/26/23 13:02 Surgeon: Amadeo Wan MD Pre Op Diagnosis: Dislocated Left Knee Patient Data Age: 78 Gender: F Height: 1.7 m Weight: 85.9 kg Last Vital Signs Temp 36.3 C L 08/26/23 03:49 Pulse 69 08/26/23 08:00 Resp 18 08/26/23 08:00 BP 128/57 L 08/26/23 03:49 Pulse Ox 96 08/26/23 08:00 O2 Del Method Room Air 08/26/23 08:00 O2 Flow Rate 2 08/23/23 08:50 FiO2 21 08/26/23 08:00 Allergies Allergy/AdvReac Type Severity Reaction Status Date / Time meperidine [From Demerol] Allergy Intermediate Hives Verified 08/23/23 14:12 erythromycin base AdvReac Intermediate Palpitation Verified 08/23/23 14:12 s Pork/Porcine Containing AdvReac Intermediate Hypertensio Verified 08/23/23 14:12 Products n Sunxzwi-QAO-AwX Reductase AdvReac Intermediate body pain, Verified 08/23/23 14:12 Inhibitor BODY ACHES Home Medications Medication Instructions Recorded Confirmed Type clopidogrel 75 mg tablet 75 mg PO DAILY 04/21/20 08/23/23 History losartan 100 mg tablet 100 mg PO HS 04/21/20 08/23/23 History spironolactone 25 mg tablet 25 mg PO QAM 04/04/22 08/23/23 History chlorthalidone 25 mg tablet 25 mg PO QAM 04/05/22 08/23/23 History qntohmcp-vrpp-xruo 8 mg-folic 400 1 tablet PO DAILY 06/25/22 08/23/23 History mcg-K 50 mcg-lutein 300 mcg tablet (Centrum Silver Women) aspirin 81 mg chewable tablet 81 mg PO DAILY 06/27/22 08/23/23 History (Children's Aspirin) blood-glucose transmitter (Dexcom #2 ea 09/25/22 08/23/23 Rx G6 Transmitter device) blood-glucose sensor (Dexcom G6 #3 ea 02/07/23 08/23/23 Rx Sensor device) rabeprazole 20 mg tablet,delayed 20 mg PO QAM 03/03/23 08/23/23 History release (AcipHex) nitroglycerin 0.6 mg sublingual 0.6 mg sublingual Q5M PRN chest 05/20/23 08/23/23 Rx tablet pain #30 tabs carvedilol 25 mg tablet 25 mg PO Q12H 06/04/23 08/23/23 History ergocalciferol (vitamin D2) 1,250 1,250 mcg PO WEEKLY 06/04/23 08/23/23 History mcg (50,000 unit) capsule insulin aspart U-100 100 unit/mL See Rx Instructions .Route 06/04/23 08/23/23 Rx subcutaneous solution (Novolog .COMPLEX #45 mL U-100 Insulin aspart) nifedipine 30 mg tablet,extended 30 mg PO HS 06/20/23 08/23/23 History release 24 hr pitavastatin calcium 4 mg tablet 4 mg PO DAILY #30 tabs 06/27/23 08/23/23 Rx (Livalo) hydrocodone 5 mg-acetaminophen 325 1 tablet PO Q6H PRN pain #20 tabs 08/13/23 08/23/23 Rx mg tablet ezetimibe 10 mg tablet 10 mg PO DAILY 08/23/23 08/23/23 History meclizine 25 mg tablet 25 mg PO DAILY PRN Vertigo 08/23/23 08/23/23 History Laboratory Tests 08/25/23 08/25/23 08/26/23 16:03 20:16 06:16 WBC 5.7 K/mm3 (4.5-10.0) RBC 3.68 L M/mm3 (4.2-5.4) Hgb 10.5 L g/dL (12.0-15.0) Hct 33.7 L % (37.0-47.0) MCV 91.6 fl (80-100) MCH 28.5 pg (26-34) MCHC 31.2 L g/dl (32-36) RDW 14.5 % (11.5-14.5) Plt Count 263 k/mm3 (150-375) MPV 9.8 fl (7.4-10.4) Immature Gran % (Auto) 0.2 % (0-0.5) Neut % (Auto) 50.1 % (45.5-73.1) Lymph % (Auto) 36.4 % (18.3-44.2) Luna % (Auto) 8.7 H % (2.6-8.5) Eos % (Auto) 4.2 % (0-4.4) Baso % (Auto) 0.4 % (0.2-1.2) Lymph # (Auto) 2.06 K/mm3 (0.9-3.2) Luna # (Auto) 0.5 K/mm3 (0.1-0.6) Eos # (Auto) 0.2 K/mm3 (0-0.3) Baso # (Auto) 0.0 K/mm3 (0.0-0.1) Abs Immat Gran (auto) 0.01 K/mm3 (0.00-0.031) Absolute Neuts (auto) 2.8 K/mm3 (1.3-6.7) Absolute Nucleated RBC 0.000 K/mm3 (0.0-0.012) Nucleated RBC % 0.0 % (0.0-0.2) PT 14.1 Seconds (11.1-14.7) INR 1.
--- NOTE | 2023-08-26 13:38 | WPDHPUPDATE1 ---
History and Physical Update Update Date/Time: 08/26/23 13:38 History and Physical has been reviewed, including an updated exam of the patient. There are NO changes in the patient's condition. Risks, benefits, and alternatives have been discussed and questions answered. Patient agrees to proceed with procedure.
[2023-08-26] MEDS: TRANEXAMIC ACID 1,000MG/ISO100 1,000 MG/100 ML BAG 200 MG IVPB (13:40)
[2023-08-26] MEDS: ceFAZolin 2 GM/D5W 50 ML 2 GM/50 ML BAG IVPB (14:09)
[2023-08-26] MEDS: SODIUM CHLORIDE 0.9% IV 37.7 ML, MORPHINE SULFATE INJ (*CRX) 2 MG, ROPivacaine HCL 1% 2... INFILTRATE (14:50)
--- NOTE | 2023-08-26 16:08 | PM.IMPN ---
Progress Note: A&P Assessment and Plan (1) Left knee dislocation: Code(s): S83.105A - Unspecified dislocation of left knee, initial encounter Status: Acute (2) Dyslipidemia: Code(s): E78.5 - Hyperlipidemia, unspecified Status: Acute (3) Chronic kidney disease: Code(s): N18.9 - Chronic kidney disease, unspecified Status: Acute (4) Chronic obstructive pulmonary disease: Code(s): J44.9 - Chronic obstructive pulmonary disease, unspecified Status: Acute (5) Diabetes mellitus: Qualifiers: Diabetes mellitus type: type 2 Diabetes mellitus intermediate insulin use: with superintendent container terminal use Diabetes mellitus complication status: without complication Qualified Code(s): E11.9 - Type 2 diabetes mellitus without complications; Z79.4 - terminal supervisor (current) use of insulin Code(s): E11.9 - Type 2 diabetes mellitus without complications Status: Acute Plan 78-year-old female status post left knee arthroplasty on 07/01/2023 with history of insulin-dependent diabetes type 2, hypertension, peripheral artery disease status post vascular surgery?, CKD, CAD status post stents, dyslipidemia intolerant to statins, COPD, status post left TKA in 06/2023 presents from home for evaluation of left knee pain. The patient lives at home by herself. Reported on 08/10/2023 the patient felt unsteady and almost fell but a son was able to catcher and thereafter she feels like her knee has been unstable and she has had pain. In [place] ER on 08/22/2023 left knee found to be dislocated and reduction attempt was unsuccessful. Thereafter Dr. Cedillo arrived and was able to reduce it under anesthesia. Status post left TKA, recurrent dislocation -failed attempt at reduction in ER. Second attempt successful with Dr. Cedillo in the ER under anesthesia. On 08/24 the patient loosen her brace and developed another dislocation. Currently undergoing bedside reduction with Dr. Cedillo and Anesthesia team. -pain control per orthopedic surgeon. Patient will need to be on continuous pulse ox considering large dose sedatives/narcotics and her history of COPD. -plan for OR tomorrow. NPO at midnight. -Dr. Cedillo plan for aspirin postop for DVT prophylaxis. The patient is a poor historian however she has charted CAD status post stents and peripheral artery disease status post vascular surgery. Her home antiplatelet is Plavix. Will to elicit further history from the family and consider all this for aspirin/Plavix use postop. -she does not appear to be in any respiratory or cardiac acute deconditioning. EKG obtained. Check portable chest x-ray. She is a moderate risk candidate for a low/moderate risk procedure. -Patient undergoing left TKA revision today CKD -appears stable. Continue to monitor closely considering operation on Friday Insulin-dependent diabetes mellitus -she has insulin pump at home. Episode of hypoglycemia on admission due to possibly over administration and poor oral intake. Pump discontinued. Continue Accu-Cheks with hypoglycemia protocol and sliding scale only. Readjust postop. Peripheral artery disease -chronic, stable. Will follow CAD status post stents -chronic, stable. Will follow COPD -chronic, stable. Will follow FEN: Saline lock IV. Carbohydrate consistent heart healthy diet. GI prophylaxis: Not indicated DVT prophylaxis: Aspirin 325 mg. Hold Plavix. Lines: Peripheral IV Code Status: Full code Dispo: Stable on medical floor ? Patient seen and examined at bedside during my morning rounds ? Collaborated with patient's nurse at the bedside in detail and addressed all concerns ? Labs, electrolytes, radiology, investigations and test results reviewed ? Consult/Nursing/Ancilliary notes on the chart reviewed and appreciated ? Spoke with patient/family at the bedside and answered all the questions that they had Repeat labs in a.m. Electrolyte replacement as per
[2023-08-26] MEDS: TRANEXAMIC ACID 1,000 MG/10 ML AMPUL 1000 MG IV PUSH (17:23)
[2023-08-26] MEDS: ceFAZolin SODIUM 1 GM VIAL 2 GM IV PUSH (18:12)
[2023-08-26] MEDS: LACTATED RINGERS 1,000 ML 30 ML IV CONT (18:17)
--- NOTE | 2023-08-26 18:21 | W.PM.PROC2 ---
Procedure Note - Detailed Date of Procedure 08/26/23 Pre-op Diagnosis FAILED LEFT KNEE REPLACEMENT Post-op Diagnosis Same Procedure Performed REVISION OF LEFT TKA Surgeon Jerman Garza MD Anesthesia General Indications LEFT KNEE INJURY WITH LEFT KNEE INSTABILITY AND EVENTUAL DISLOCATION Description of Procedure THE PATIENT WAS TAKEN TO THE OPERATING ROOM IN STABLE CONDITION. THE LEFT LEG WAS PREPPED IN THE USUAL FASHION. THE TOURNIQUET WAS INFLATED. THE OLD SCAR WAS USED TO MAKE AN INCISION DOWN THE KNEE. A PARA PATELLA ARTHROTOMY WAS PREFORMED. THE PATELLA WAS EVERTED. THERE WAS NO SIGN OF INFECTION. A THOROUGH SYNOVECTOMY WAS PREFORMED. THE KNEE WAS EXAMINED. THERE WAS INSUFFICIENCY OF THE PCL AND THE MCL WITH COMPLETE INSTABILITY WITH FLEXION. THE LCL WAS INTACT. THE POLY COMPONENT WAS REMOVED. THE KNEE WAS IRRIGATED THOROUGHLY WITH STERILE FLUID AND FURTHER DEBRIDEMENT WAS PREFORMED. THE FEMORAL COMPONENT WAS REMOVED. THERE WAS GOOD BONE STALK. A JUAN WAS USED TO REMOVE ANY CEMENT THAT WAS ADHERED TO THE BONE. A 60 PS-C FEMORAL CUTTING BLOCK PLACED ON THE FEMUR. A BOX CUT WAS MADE FOR THE PS-C IMPLANT. A REAMER WAS USED TO REAM THE PROXIMAL FEMUR TO A 12 MM DIAMETER. A 60 FEMORAL TRIAL WITH A 14 MM STEM WAS PLACED USING PRIOR LANDMARKS FOR EXTERNAL ROTATION. A NUMBER 10 PS-C POLY TRIAL WAS PLACED. THE KNEE CAME OUT TO FULL EXTENSION. THERE WAS GOOD PATELLA TRACKING WITH NO TILT. THERE WAS EXCELLENT VARUS VALGUS STABILITY. THE TRIAL COMPONENTS WERE REMOVED. THE KNEE WAS IRRIGATED WITH BACTISURE IRRIGATION SYSTEM AND STERILE WATER. A 60 PS-C FEMORAL IMPLANT WAS CEMENTED IN TO PLACE. A PS-C 10 POLY TRIAL WAS PLACED. ONCE THE CEMENT WAS HARD THE KNEE WAS TAKEN THROUGH A ROM AGAIN AND FOUND TO BE STABLE IN ALL PLANES. THE POLY TRIAL WAS REMOVED. THE NUMBER 10 PS-C POLY IMPLANT WAS PLACED AND LOCKED THE KNEE WAS TAKEN THROUGH A ROM AGAIN AND FOUND TO BE VERY STABLE. THE TOURNIQUET WAS DEFLATED. THE BLEEDERS WERE CAUTERIZED. THE WOUND WAS IRRIGATED WITH A MIX OF BETADINE AND STERILE WATER. THE ARTHROTOMY WAS CLOSED WITH 1 VICRYL SUTURE, THE SUB CUTANEOUS LAYER WITH 2-0 VICRYL AND THE SKIN WITH RAUDEL. THE WOUND WAS WASHED AND A STERILE DRESSING WAS APPLIED. PATIENT WAS EXTUBATED. Estimated Blood Loss 300 Drains No Pathology None sent Complications No immediate complications Condition Stable Disposition PACU
[2023-08-26] MEDS: VANCOMYCIN 1,000 MG/NS 250 ML 1,000 MG/250 ML BAG 250 MG IVPB (18:22)
[2023-08-26] MEDS: fentaNYL CITRATE INJ (*CRX) 100 MCG/2 ML VIAL 25 MCG IV PUSH (18:49)
[2023-08-26 19:08] LABS: Glucose Point of Care 152 mg/dl (65-105)
[2023-08-26] MEDS: ASPIRIN 325 MG ENTERIC TABLET PO (21:23)
[2023-08-26] MEDS: NIFEdipine 30 MG TAB.ER.24 PO (21:23)
[2023-08-26] MEDS: LOSARTAN POTASSIUM 100 MG TABLET PO (21:23)
[2023-08-26] MEDS: SODIUM CHLORIDE 0.9% IV 1,000 ML 125 ML IV CONT (21:31)
[2023-08-27] VITALS (8 sets, daily range): BP systolic 123–138; BP diastolic 44–56; PULSE 80–102; RESP 16–18; TEMP 36.1–37.4; O2SAT 93–100
[2023-08-27] MEDS: ceFAZolin 2 GM/D5W 50 ML 2 GM/50 ML BAG IVPB ×3 (02:12→17:00)
[2023-08-27] MEDS: oxyCODONE/ACETAMINOPHEN (*CRX) 5-325 MG TABLET 2 TABLET PO (03:33)
[2023-08-27] MEDS: VANCOMYCIN 1,000 MG/NS 250 ML 1,000 MG/250 ML BAG 250 MG IVPB ×2 (05:32→17:32)
[2023-08-27 07:30] LABS: Basophils Percent Auto 0.4 % (0.2-1.2); Eosinophils Absolute Auto 0.1 K/mm3 (0-0.3); Eosinophils Percent Auto 1.9 % (0-4.4); Hematocrit 27.5 % (37.0-47.0); Hemoglobin 8.6 g/dL (12.0-15.0); Immature Granulocyte Absolute 0.01 K/mm3 (0.00-0.031); Immature Granulocyte Percent A 0.1 % (0-0.5); Lymphocytes Absolute Auto 1.75 K/mm3 (0.9-3.2); Lymphocytes Percent Auto 24.2 % (18.3-44.2); Mean Corpuscular HGB Conc 31.3 g/dl (32-36); Mean Corpuscular Hemoglobin 28.9 pg (26-34); Mean Corpuscular Volume 92.3 fl (80-100); Mean Platelet Volume 9.8 fl (7.4-10.4); Monocytes Absolute Auto 0.6 K/mm3 (0.1-0.6); Neutrophils Absolute Auto 4.7 K/mm3 (1.3-6.7); Neutrophils Percent Auto 65.4 % (45.5-73.1); Platelet Count Result 200 k/mm3 (150-375); Red Blood Count 2.98 M/mm3 (4.2-5.4); Red Cell Distribution Width 14.8 % (11.5-14.5); White Blood Count 7.2 K/mm3 (4.5-10.0)
[2023-08-27 07:41] LABS: Anion Gap 3 mmol/L (4-12); Blood Urea Nitrogen 25 mg/dL (7-17); Calcium 9.1 mg/dL (8.4-10.2); Carbon Dioxide 29 mmol/L (22-30); Chloride 101 mmol/L (98-107); Estimated CRCL calculation 24 ml/min; Estimated Glomerular Filt Rate 29; Glucose 134 mg/dL (65-110); Phosphorus 3.5 mg/dL (2.5-4.5); Potassium 4.4 mmol/L (3.4-5.0); Sodium 133 mmol/L (137-145)
[2023-08-27 07:50] LABS: Glucose Point of Care 127 mg/dl (65-105)
[2023-08-27] MEDS: polyethylene glycoL 3350 17 GM POWD.PACK PO (09:31)
[2023-08-27] MEDS: carvediloL 25 MG TABLET PO ×2 (09:32→21:04)
[2023-08-27] MEDS: EZETIMIBE 10 MG TABLET PO (09:32)
[2023-08-27] MEDS: PANTOPRAZOLE 40 MG TABLET PO (09:32)
[2023-08-27] MEDS: THERAPEUTIC MULTIVITAMINS/MINERALS TAB (*BKC) 1 TABLET PO (09:33)
[2023-08-27] MEDS: SPIRONOLACTONE 25 MG TABLET PO (09:33)
[2023-08-27] MEDS: ASPIRIN 325 MG ENTERIC TABLET PO ×2 (09:33→21:04)
[2023-08-27] MEDS: SENNA/DOCUSATE SODIUM TABLET 2 TAB PO ×2 (09:33→16:59)
[2023-08-27] MEDS: CHLORTHALIDONE 25 MG TABLET PO (09:33)
--- NOTE | 2023-08-27 10:44 | PM.PNORT ---
Progress Note: A&P Assessment and Plan (1) Left knee dislocation: Code(s): S83.105A - Unspecified dislocation of left knee, initial encounter Status: Acute Assessment and Plan: POD 1 DOING WELL. CONTINUE PT. REHAB ONCE STABLE Subjective Subjective Date/Time Seen: 08/27/23 10:44 Interval history: POD 1 DOING WELL. NO CALF PAIN. Exam Extrem: Other: VSS AFEBRILE DRESSING DRY, PREVENA INTACT, NV INTACT NEG HOMANS SIGN CALF SOFT NON TENDER Objective Data Vital Signs Vital Signs: Vital Signs - 24 hr 08/26/23 13:11 08/26/23 18:17 08/26/23 18:32 Temperature 36.4 C L 37.0 C Pulse Rate 80 95 91 Respiratory Rate 14 20 21 H Blood Pressure 126/54 L 141/67 H 143/68 H Pulse Oximetry 100 100 92 Oxygen Delivery Room Air Simple Face Mask Room Air Oxygen Flow Rate 6 08/26/23 18:45 08/26/23 19:00 08/26/23 19:15 Temperature Pulse Rate 88 83 78 Respiratory Rate 15 15 15 Blood Pressure 144/64 H 127/53 L 128/54 L Pulse Oximetry 92 100 100 Oxygen Delivery Room Air Nasal Cannula Nasal Cannula Oxygen Flow Rate 2 2 08/26/23 19:30 08/26/23 21:23 08/26/23 21:20 Temperature Pulse Rate 76 83 Respiratory Rate 14 Blood Pressure 128/59 L Pulse Oximetry 100 92 Oxygen Delivery Nasal Cannula Nasal Cannula Oxygen Flow Rate 2 1 08/26/23 19:41 08/26/23 23:41 08/27/23 03:41 Temperature 35.8 C L 35.9 C L 36.1 C L Pulse Rate 83 76 83 Respiratory Rate 16 16 16 Blood Pressure 144/55 H 140/51 L 138/51 L Pulse Oximetry 94 97 98 Oxygen Delivery Oxygen Flow Rate 08/27/23 07:41 08/27/23 08:49 08/27/23 09:32 Temperature 36.9 C Pulse Rate 83 102 H Respiratory Rate 18 Blood Pressure 132/44 L Pulse Oximetry 93 Oxygen Delivery Room Air Oxygen Flow Rate Intake/Output Intake/Output: Intake & Output 08/24/23 08/25/23 08/26/23 08/27/23 23:59 23:59 23:59 23:59 Intake Total 1210 1265 500 458 Output Total 2500 1950 1530 550 Balance -1290 -685 -1030 -92 Meds/Results Medications: Active Medications Generic Name Dose Route Start Last Admin Trade Name Freq PRN Reason Stop Dose Admin Acetaminophen 1,000 mg 08/26/23 13:56 Acetaminophen 500 Mg Tablet PO Q6H PRN Pain Rated 1-3 Aspirin 325 mg 08/26/23 21:00 08/27/23 09:33 Aspirin 325 Mg Enteric Tablet PO 325 mg Q12HR KEYLA Administration Carvedilol 25 mg 08/23/23 21:00 08/27/23 09:32 Carvedilol 25 Mg Tablet PO 25 mg Q12H KEYLA Administration Chlorthalidone 25 mg 08/25/23 09:00 08/27/23 09:33 Chlorthalidone 25 Mg Tablet PO 25 mg QAM KEYLA Administration Dextrose 12.5 gm 08/23/23 20:47 Dextrose 50% 25 Gm/50 Ml Syringe IV PUSH PRN PRN Hypoglycemia Protocol Diazepam 5 mg 08/24/23 22:51 08/26/23 02:29 Diazepam (*Crx) 5 Mg Tablet PO 5 mg BID PRN Administration Anxiety Diphenhydramine HCl 25 mg 08/26/23 13:56 Diphenhydramine Hcl Inj 50 Mg/Ml Vial IV PUSH Q6H PRN Itching Ezetimibe 10 mg 08/24/23 09:00 08/27/23 09:32 Ezetimibe 10 Mg Tablet PO 10 mg DAILY KEYLA Administration Ergocalciferol 50,000 units 09/01/23 09:00 Ergocalciferol 50,000 Units Capsule PO WEEKLY KEYLA Glucagon 1 mg 08/23/23 20:47 Glucagon For Inj 1 Mg Vial IM PRN PRN Hypoglycemia Protocol Glucose 15 gm 08/23/23 20:47 Glucose Oral Gel 15 Gm Of Glucse In 37.5 Gm Tube PO PRN PRN Hypoglycemia Protocol Dextrose 1,000 mls @ 100 mls/hr 08/23/23 20:47 Dextrose 5% 1,000 Ml IVPB PRN PRN Hypoglycemia Protocol Cefazolin Sodium 2 gm in 50 mls @ 100 mls/hr 08/27/23 02:00 08/27/23 10:16 Ancef 2 Gm/D5w 50 Ml IVPB 08/27/23 18:29 Infused Q8H KEYLA Infusion Vancomycin HCl 1,000 mg in 250 mls @ 250 mls/hr 08/27/23 06:00 08/27/23 05:32 Vancomycin 1,000 Mg/Ns 250 Ml IVPB 08/27/23 18:59 250 mls/hr Q12H KEYLA Administration Insulin Aspart 2 - 5 units 08/24/23 1
[2023-08-27 12:00] LABS: Glucose Point of Care 179 mg/dl (65-105)
[2023-08-27] MEDS: diazePAM (*CRX) 5 MG TABLET PO (13:32)
[2023-08-27] MEDS: oxyCODONE/ACETAMINOPHEN (*CRX) 5-325 MG TABLET 1 TABLET PO (13:32)
--- NOTE | 2023-08-27 14:23 | PCPTNOTE ---
Attempted to see patient for PT, however patient was sound asleep and family in room. Patient's family asked PT to let patient rest at this time and check back later. Patient unable to bed seen at this time.
--- NOTE | 2023-08-27 14:32 | PCPTNOTE ---
Attempted to see patient for PT, however patient refused. Offered lower extremity exercises in bed, patient refused all activity.
--- NOTE | 2023-08-27 15:17 | P.PNAN_ITS ---
Anes - Prog Note Post-Op Date/Time: 08/27/23 15:17 Cardiovascular status: normal Respiratory status: normal Airway patency: baseline Mental status: baseline Post-Op hydration status: normal Vital Signs: Last Vital Signs Temp 36.7 C 08/27/23 11:41 Pulse 84 08/27/23 11:41 Resp 18 08/27/23 11:41 BP 137/56 L 08/27/23 11:41 Pulse Ox 100 08/27/23 11:41 O2 Del Method Room Air 08/27/23 08:49 O2 Flow Rate 1 08/26/23 21:20 FiO2 21 08/26/23 08:00 Pain Score (VAS): Patient asleep. No nonverbal signs present at this time. I/O: Intake & Output 08/26/23 08/27/23 08/27/23 23:59 07:59 15:59 Intake Total 350 50 648 Output Total 30 450 100 Balance 320 -400 548 Laboratory Tests 08/27/23 07:20 08/27/23 07:20 08/26/23 08/27/23 08/27/23 19:05 07:20 07:30 WBC 7.2 RBC 2.98 L Hgb 8.6 L Hct 27.5 L MCV 92.3 MCH 28.9 MCHC 31.3 L RDW 14.8 H Plt Count 200 MPV 9.8 Immature Gran % (Auto) 0.1 Neut % (Auto) 65.4 Lymph % (Auto) 24.2 [place] % (Auto) 8.0 Eos % (Auto) 1.9 Baso % (Auto) 0.4 Lymph # (Auto) 1.75 [place] # (Auto) 0.6 Eos # (Auto) 0.1 Baso # (Auto) 0.0 Abs Immat Gran (auto) 0.01 Absolute Neuts (auto) 4.7 Absolute Nucleated RBC 0.000 Nucleated RBC % 0.0 Sodium 133 L Potassium 4.4 Chloride 101 Carbon Dioxide 29 Anion Gap 3 L BUN 25 H Creatinine 2.00 H Estim Creat Clear Calc 24 Estimated GFR 29 L Glucose 134 H POC Capillary Glucose 152 H 127 H Calcium 9.1 Phosphorus 3.5 Magnesium 2.0 08/27/23 11:35 WBC RBC Hgb Hct MCV MCH MCHC RDW Plt Count MPV Immature Gran % (Auto) Neut % (Auto) Lymph % (Auto) [place] % (Auto) Eos % (Auto) Baso % (Auto) Lymph # (Auto) [place] # (Auto) Eos # (Auto) Baso # (Auto) Abs Immat Gran (auto) Absolute Neuts (auto) Absolute Nucleated RBC Nucleated RBC % Sodium Potassium Chloride Carbon Dioxide Anion Gap BUN Creatinine Estim Creat Clear Calc Estimated GFR Glucose POC Capillary Glucose 179 H Calcium Phosphorus Magnesium Post-procedural complaints: none Patient Feedback: Patient satisfied with anesthetic care.
[2023-08-27 16:34] LABS: Glucose Point of Care 97 mg/dl (65-105)
--- NOTE | 2023-08-27 18:00 | PM.IMPN ---
Progress Note: A&P Assessment and Plan (1) Left knee dislocation: Code(s): S83.105A - Unspecified dislocation of left knee, initial encounter Status: Acute (2) Dyslipidemia: Code(s): E78.5 - Hyperlipidemia, unspecified Status: Acute (3) Chronic kidney disease: Code(s): N18.9 - Chronic kidney disease, unspecified Status: Acute (4) Chronic obstructive pulmonary disease: Code(s): J44.9 - Chronic obstructive pulmonary disease, unspecified Status: Acute (5) Diabetes mellitus: Qualifiers: Diabetes mellitus type: type 2 Diabetes mellitus skilled nursing insulin use: with termite control technician use Diabetes mellitus complication status: without complication Qualified Code(s): E11.9 - Type 2 diabetes mellitus without complications; Z79.4 - keno terminal operator (current) use of insulin Code(s): E11.9 - Type 2 diabetes mellitus without complications Status: Acute Plan 78-year-old female status post left knee arthroplasty on 07/01/2023 with history of insulin-dependent diabetes type 2, hypertension, peripheral artery disease status post vascular surgery?, CKD, CAD status post stents, dyslipidemia intolerant to statins, COPD, status post left TKA in 06/2023 presents from home for evaluation of left knee pain. The patient lives at home by herself. Reported on 08/10/2023 the patient felt unsteady and almost fell but a son was able to catcher and thereafter she feels like her knee has been unstable and she has had pain. In [place] ER on 08/22/2023 left knee found to be dislocated and reduction attempt was unsuccessful. Thereafter Dr. Cedillo arrived and was able to reduce it under anesthesia. Left TKA, recurrent dislocation -failed attempt at reduction in ER. Second attempt successful with Dr. Cedillo in the ER under anesthesia. On 08/24 the patient loosen her brace and developed another dislocation. Currently undergoing bedside reduction with Dr. Cedillo and Anesthesia team. -pain control per orthopedic surgeon. Patient will need to be on continuous pulse ox considering large dose sedatives/narcotics and her history of COPD. -she does not appear to be in any respiratory or cardiac acute deconditioning. EKG obtained. Check portable chest x-ray. She is a moderate risk candidate for a low/moderate risk procedure. -Dr. Cedillo plan for aspirin postop for DVT prophylaxis. The patient is a poor historian however she has charted CAD status post stents and peripheral artery disease status post vascular surgery. Her home antiplatelet is Plavix. Will to elicit further history from the family and consider all this for aspirin/Plavix use postop. -patient status post revision of left TKA ... POD #1 -postop care as per Orthopedics CKD -appears stable. Continue to monitor closely considering operation on Friday -had mild bump in creatinine. -Gentle IV hydration ordered with normal saline at 75 cc/hour for 1000cc -Strict input and output monitoring -Monitor renal functions closely Insulin-dependent diabetes mellitus -she has insulin pump at home. Episode of hypoglycemia on admission due to possibly over administration and poor oral intake. Pump discontinued. Continue Accu-Cheks with hypoglycemia protocol and sliding scale only. Readjust postop. Peripheral artery disease -chronic, stable. Will follow CAD status post stents -chronic, stable. Will follow COPD -chronic, stable. Will follow FEN: Saline lock IV. Carbohydrate consistent heart healthy diet. GI prophylaxis: Not indicated DVT prophylaxis: Aspirin 325 mg. Hold Plavix. Lines: Peripheral IV Code Status: Full code Dispo: Stable on medical floor ? Patient seen and examined at bedside during my morning rounds ? Collaborated with patient's nurse at the bedside in detail and addressed all concerns ? Labs, electrolytes, radiology, investigations and test results reviewed ? Consult/Nursing/Ancilliary notes on the chart re
[2023-08-27 20:58] LABS: Glucose Point of Care 194 mg/dl (65-105)
[2023-08-27] MEDS: NIFEdipine 30 MG TAB.ER.24 PO (21:04)
[2023-08-27] MEDS: LOSARTAN POTASSIUM 100 MG TABLET PO (21:04)
[2023-08-28] MEDS: oxyCODONE/ACETAMINOPHEN (*CRX) 5-325 MG TABLET 2 TABLET PO (00:20)
[2023-08-28] MEDS: diazePAM (*CRX) 5 MG TABLET PO ×2 (04:54→12:28)
[2023-08-28] MEDS: oxyCODONE/ACETAMINOPHEN (*CRX) 5-325 MG TABLET 1 TABLET PO ×2 (04:54→12:28)
[2023-08-28 05:27] VITALS: BP 131/53; PULSE 86; RESP 18; TEMP 37.7; O2SAT 96
[2023-08-28 07:50] LABS: Glucose Point of Care 143 mg/dl (65-105)
[2023-08-28 07:53] LABS: Basophils Percent Auto 0.3 % (0.2-1.2); Eosinophils Absolute Auto 0.3 K/mm3 (0-0.3); Eosinophils Percent Auto 3.4 % (0-4.4); Hematocrit 25.1 % (37.0-47.0); Hemoglobin 8.1 g/dL (12.0-15.0); Immature Granulocyte Absolute 0.03 K/mm3 (0.00-0.031); Immature Granulocyte Percent A 0.4 % (0-0.5); Lymphocytes Absolute Auto 2.06 K/mm3 (0.9-3.2); Mean Corpuscular HGB Conc 32.3 g/dl (32-36); Mean Corpuscular Hemoglobin 29.9 pg (26-34); Mean Corpuscular Volume 92.6 fl (80-100); Mean Platelet Volume 10.2 fl (7.4-10.4); Monocytes Absolute Auto 0.9 K/mm3 (0.1-0.6); Monocytes Percent Auto 11.7 % (2.6-8.5); Neutrophils Absolute Auto 4.1 K/mm3 (1.3-6.7); Neutrophils Percent Auto 56.2 % (45.5-73.1); Platelet Count Result 188 k/mm3 (150-375); Red Blood Count 2.71 M/mm3 (4.2-5.4); White Blood Count 7.4 K/mm3 (4.5-10.0)
[2023-08-28 08:10] LABS: Anion Gap 2 mmol/L (4-12); Blood Urea Nitrogen 29 mg/dL (7-17); Calcium 9.7 mg/dL (8.4-10.2); Carbon Dioxide 30 mmol/L (22-30); Chloride 101 mmol/L (98-107); Estimated CRCL calculation 23 ml/min; Estimated Glomerular Filt Rate 29; Glucose 155 mg/dL (65-110); Potassium 4.1 mmol/L (3.4-5.0); Sodium 133 mmol/L (137-145)
[2023-08-28 08:41] VITALS: PULSE 76
[2023-08-28] MEDS: SPIRONOLACTONE 25 MG TABLET PO (08:41)
[2023-08-28] MEDS: THERAPEUTIC MULTIVITAMINS/MINERALS TAB (*BKC) 1 TABLET PO (08:41)
[2023-08-28] MEDS: polyethylene glycoL 3350 17 GM POWD.PACK PO (08:41)
[2023-08-28] MEDS: PANTOPRAZOLE 40 MG TABLET PO (08:41)
[2023-08-28] MEDS: EZETIMIBE 10 MG TABLET PO (08:41)
[2023-08-28] MEDS: ASPIRIN 325 MG ENTERIC TABLET PO ×2 (08:41→21:02)
[2023-08-28] MEDS: SENNA/DOCUSATE SODIUM TABLET 2 TAB PO ×2 (08:41→16:56)
[2023-08-28] MEDS: CHLORTHALIDONE 25 MG TABLET PO (08:41)
[2023-08-28] MEDS: carvediloL 25 MG TABLET PO ×2 (08:41→21:02)
[2023-08-28] MEDS: SODIUM CHLORIDE 0.9% IV 1,000 ML 75 ML IV CONT ×2 (10:51→19:00)
[2023-08-28] MEDS: ONDANSETRON INJ 4 MG/2 ML VIAL IV PUSH (10:52)
[2023-08-28 12:13] LABS: Glucose Point of Care 210 mg/dl (65-105)
[2023-08-28] MEDS: INSULIN ASPART (*BKC) 100 UNITS/ML SUB-Q (12:26)
[2023-08-28 14:00] VITALS: BP 139/61; PULSE 68; RESP 20; TEMP 36.8; O2SAT 96
--- NOTE | 2023-08-28 14:12 | PCPTNOTE ---
Patient refused treatment this session due to not feeling well. Patient reported she just felt weak today and nauseous.
--- NOTE | 2023-08-28 16:39 | PM.PNORT ---
Progress Note: A&P Assessment and Plan (1) Status post revision of total knee replacement: Code(s): Z96.659 - Presence of unspecified artificial knee joint Status: Acute Assessment and Plan: AYLIN IS HERE FOR F/U OF HER LEFT TKA REVISION. SHE IS DOING WELL WITH NO FEELINGS OF INSTABILITY. SHE DID NOT DO TO MUCH TODAY DUE TO HER PAIN LEVEL. SHE WAS HAVING STOMACH CRAMPS TODAY. RECOMMEND CONTINUE PT AND POSSIBLE DC TOMORROW Subjective Subjective Date/Time Seen: 08/28/23 16:39 Interval history: POD 2 DOING WELL. GOOD PROGRESS WITH PT. TODAY SHE FELT A LITTLE DIZZY AND NAUSEOUS. NO CP OR SOB, NO CALF PAIN Exam Extrem: Other: VSS AFEBRILE DRESSING PREVENA INTACT, NO SIGNIFICANT DRAINAGE, NV INTACT SOFT CALF AND THIGH, NEG HOMNANS SIGN Objective Data Vital Signs Vital Signs: Vital Signs - 24 hr 08/27/23 20:43 08/27/23 21:04 08/27/23 20:00 Temperature 36.9 C Pulse Rate 84 80 Respiratory Rate 16 Blood Pressure 132/55 L Pulse Oximetry 95 Oxygen Delivery Room Air 08/28/23 05:27 08/28/23 08:41 08/28/23 08:41 Temperature 37.7 C H Pulse Rate 86 76 Respiratory Rate 18 Blood Pressure 131/53 L Pulse Oximetry 96 Oxygen Delivery Room Air 08/28/23 14:00 Temperature 36.8 C Pulse Rate 68 Respiratory Rate 20 Blood Pressure 139/61 Pulse Oximetry 96 Oxygen Delivery Intake/Output Intake/Output: Intake & Output 08/25/23 08/26/23 08/27/23 08/28/23 23:59 23:59 23:59 23:59 Intake Total 0961 024 3379 600 Output Total 1950 1530 550 Balance -685 -1030 818 600 Meds/Results Medications: Active Medications Generic Name Dose Route Start Last Admin Trade Name Freq PRN Reason Stop Dose Admin Acetaminophen 1,000 mg 08/26/23 13:56 Acetaminophen 500 Mg Tablet PO Q6H PRN Pain Rated 1-3 Aspirin 325 mg 08/26/23 21:00 08/28/23 08:41 Aspirin 325 Mg Enteric Tablet PO 325 mg Q12HR KEYLA Administration Carvedilol 25 mg 08/23/23 21:00 08/28/23 08:41 Carvedilol 25 Mg Tablet PO 25 mg Q12H KEYLA Administration Chlorthalidone 25 mg 08/25/23 09:00 08/28/23 08:41 Chlorthalidone 25 Mg Tablet PO 25 mg QAM KEYLA Administration Dextrose 12.5 gm 08/23/23 20:47 Dextrose 50% 25 Gm/50 Ml Syringe IV PUSH PRN PRN Hypoglycemia Protocol Diazepam 5 mg 08/24/23 22:51 08/28/23 12:28 Diazepam (*Crx) 5 Mg Tablet PO 5 mg BID PRN Administration Anxiety Diphenhydramine HCl 25 mg 08/26/23 13:56 Diphenhydramine Hcl Inj 50 Mg/Ml Vial IV PUSH Q6H PRN Itching Ezetimibe 10 mg 08/24/23 09:00 08/28/23 08:41 Ezetimibe 10 Mg Tablet PO 10 mg DAILY KEYLA Administration Ergocalciferol 50,000 units 09/01/23 09:00 Ergocalciferol 50,000 Units Capsule PO WEEKLY KEYLA Glucagon 1 mg 08/23/23 20:47 Glucagon For Inj 1 Mg Vial IM PRN PRN Hypoglycemia Protocol Glucose 15 gm 08/23/23 20:47 Glucose Oral Gel 15 Gm Of Glucse In 37.5 Gm Tube PO PRN PRN Hypoglycemia Protocol Dextrose 1,000 mls @ 100 mls/hr 08/23/23 20:47 Dextrose 5% 1,000 Ml IVPB PRN PRN Hypoglycemia Protocol Sodium Chloride 1,000 mls @ 75 mls/hr 08/28/23 09:00 08/28/23 10:51 Normal Saline Iv IV CONT 08/28/23 22:19 75 mls/hr .[id number] KEYLA Administration Insulin Aspart 2 - 5 units 08/24/23 12:00 08/28/23 12:26 Insulin Aspart (*Bkc) 100 Units/Ml SUB-Q 2 units TIDWM KEYLA Administration Protocol Losartan Potassium 100 mg 08/23/23 21:00 08/27/23 21:04 Losartan Potassium 100 Mg Tablet PO 100 mg HS KEYLA Administration Meclizine HCl 25 mg 08/23/23 14:52 Meclizine Hcl 25 Mg Tablet PO DAILY PRN Vertigo Multivitamins/Calcium 1 tablet 08/24/23 09:00 08/28/23 08:41 Therapeutic Multivitamins/Minerals Tab (*Bkc) PO 1 tablet DAILY KEYLA Administration Naloxone HCl 0.1 mg 08/26/23 13:56 Naloxone Hcl 0.4 Mg/Ml Vial
[2023-08-28 16:40] LABS: Glucose Point of Care 158 mg/dl (65-105)
--- NOTE | 2023-08-28 17:06 | PM.IMPN ---
Progress Note: A&P Assessment and Plan (1) Left knee dislocation: Code(s): S83.105A - Unspecified dislocation of left knee, initial encounter Status: Acute (2) Dyslipidemia: Code(s): E78.5 - Hyperlipidemia, unspecified Status: Acute (3) Chronic kidney disease: Code(s): N18.9 - Chronic kidney disease, unspecified Status: Acute (4) Chronic obstructive pulmonary disease: Code(s): J44.9 - Chronic obstructive pulmonary disease, unspecified Status: Acute (5) Diabetes mellitus: Qualifiers: Diabetes mellitus type: type 2 Diabetes mellitus [facility] insulin use: with intermediate teacher use Diabetes mellitus complication status: without complication Qualified Code(s): E11.9 - Type 2 diabetes mellitus without complications; Z79.4 - buttermaker (current) use of insulin Code(s): E11.9 - Type 2 diabetes mellitus without complications Status: Acute Plan 78-year-old female status post left knee arthroplasty on 07/01/2023 with history of insulin-dependent diabetes type 2, hypertension, peripheral artery disease status post vascular surgery?, CKD, CAD status post stents, dyslipidemia intolerant to statins, COPD, status post left TKA in 06/2023 presents from home for evaluation of left knee pain. The patient lives at home by herself. Reported on 08/10/2023 the patient felt unsteady and almost fell but a son was able to catcher and thereafter she feels like her knee has been unstable and she has had pain. In [place] ER on 08/22/2023 left knee found to be dislocated and reduction attempt was unsuccessful. Thereafter Dr. Cedillo arrived and was able to reduce it under anesthesia. Patient underwent left TKA revision on 08/26/2023. Left TKA, recurrent dislocation -failed attempt at reduction in ER. Second attempt successful with Dr. Cedillo in the ER under anesthesia. On 08/24 the patient loosen her brace and developed another dislocation. Currently undergoing bedside reduction with Dr. Cedillo and Anesthesia team. -pain control per orthopedic surgeon. Patient will need to be on continuous pulse ox considering large dose sedatives/narcotics and her history of COPD. -she does not appear to be in any respiratory or cardiac acute deconditioning. EKG obtained. Check portable chest x-ray. She is a moderate risk candidate for a low/moderate risk procedure. -Dr. Cedillo plan for aspirin postop for DVT prophylaxis. The patient is a poor historian however she has charted CAD status post stents and peripheral artery disease status post vascular surgery. Her home antiplatelet is Plavix. Will to elicit further history from the family and consider all this for aspirin/Plavix use postop. -patient status post revision of left TKA ... POD #2 -postop care as per Orthopedics CKD -appears stable. Continue to monitor closely considering operation on Friday -creatinine is stable at 2 -Gentle IV hydration ordered with normal saline at 75 cc/hour for 1000cc x another dose today -Strict input and output monitoring -Monitor renal functions closely Insulin-dependent diabetes mellitus -she has insulin pump at home. Episode of hypoglycemia on admission due to possibly over administration and poor oral intake. Pump discontinued. Continue Accu-Cheks with hypoglycemia protocol and sliding scale only. Readjust postop. Peripheral artery disease -chronic, stable. Will follow CAD status post stents -chronic, stable. Will follow COPD -chronic, stable. Will follow FEN: Saline lock IV. Carbohydrate consistent heart healthy diet. GI prophylaxis: Not indicated DVT prophylaxis: Aspirin 325 mg. Hold Plavix. Lines: Peripheral IV Code Status: Full code Dispo: DC patient to [facility] in am if cleared by Orthopedics ? Patient seen and examined at bedside during my morning rounds ? Collaborated with patient's nurse at the bedside in detail and addressed all concerns ? Labs, electrolyt
--- NOTE | 2023-08-28 17:17 | PC.NURSE ---
Pt having nausea this morning with abdominal pain. Pt does given zofran for nausea. Pt IV began leaking, new IV was placed via ultrasound with vascular access. Pt tolerated well. Pt sleeping for majority of shift. Pt states she feels better now that she has had some rest. Pt eating some of her dinner and tolerating well. Pt wound vac showing error message of having a clog. Line inspected, repositioned, and found no clog. Wound vac now working again with no issues. Pt and family have participated and contributed in plan of care. Will continue to monitor pt.
[2023-08-28 20:49] LABS: Glucose Point of Care 205 mg/dl (65-105)
[2023-08-28 21:02] VITALS: PULSE 78
[2023-08-28] MEDS: LOSARTAN POTASSIUM 100 MG TABLET PO (21:02)
[2023-08-28] MEDS: NIFEdipine 30 MG TAB.ER.24 PO (21:02)
[2023-08-28 21:48] VITALS: BP 116/52; PULSE 91; RESP 16; TEMP 37; O2SAT 97
[2023-08-29 04:03] LABS: Glucose Point of Care 54 mg/dl (65-105)
[2023-08-29 04:27] LABS: Glucose Point of Care 105 mg/dl (65-105)
[2023-08-29 05:19] VITALS: BP 138/60; PULSE 77; RESP 14; TEMP 36.5; O2SAT 92
[2023-08-29 07:05] LABS: Basophils Percent Auto 0.4 % (0.2-1.2); Eosinophils Absolute Auto 0.2 K/mm3 (0-0.3); Eosinophils Percent Auto 3.2 % (0-4.4); Hematocrit 24.3 % (37.0-47.0); Hemoglobin 7.7 g/dL (12.0-15.0); Immature Granulocyte Absolute 0.02 K/mm3 (0.00-0.031); Immature Granulocyte Percent A 0.3 % (0-0.5); Lymphocytes Absolute Auto 2.13 K/mm3 (0.9-3.2); Lymphocytes Percent Auto 28.1 % (18.3-44.2); Mean Corpuscular HGB Conc 31.7 g/dl (32-36); Mean Corpuscular Hemoglobin 29.1 pg (26-34); Mean Corpuscular Volume 91.7 fl (80-100); Monocytes Absolute Auto 0.8 K/mm3 (0.1-0.6); Neutrophils Absolute Auto 4.4 K/mm3 (1.3-6.7); Platelet Count Result 197 k/mm3 (150-375); Red Blood Count 2.65 M/mm3 (4.2-5.4); Red Cell Distribution Width 14.9 % (11.5-14.5); White Blood Count 7.6 K/mm3 (4.5-10.0)
[2023-08-29 07:13] LABS: Anion Gap 7 mmol/L (4-12); Blood Urea Nitrogen 25 mg/dL (7-17); Calcium 9.8 mg/dL (8.4-10.2); Carbon Dioxide 27 mmol/L (22-30); Chloride 100 mmol/L (98-107); Estimated CRCL calculation 25 ml/min; Estimated Glomerular Filt Rate 31; Glucose 143 mg/dL (65-110); Potassium 4.1 mmol/L (3.4-5.0); Sodium 134 mmol/L (137-145)
[2023-08-29 07:57] LABS: Glucose Point of Care 142 mg/dl (65-105)
[2023-08-29] MEDS: ASPIRIN 325 MG ENTERIC TABLET PO ×2 (08:02→20:29)
[2023-08-29] MEDS: CHLORTHALIDONE 25 MG TABLET PO (08:02)
[2023-08-29] MEDS: EZETIMIBE 10 MG TABLET PO (08:02)
[2023-08-29] MEDS: carvediloL 25 MG TABLET PO ×2 (08:02→20:29)
[2023-08-29] MEDS: THERAPEUTIC MULTIVITAMINS/MINERALS TAB (*BKC) 1 TABLET PO (08:02)
[2023-08-29] MEDS: SENNA/DOCUSATE SODIUM TABLET 2 TAB PO ×2 (08:02→16:08)
[2023-08-29] MEDS: SPIRONOLACTONE 25 MG TABLET PO (08:02)
[2023-08-29] MEDS: PANTOPRAZOLE 40 MG TABLET PO (08:03)
[2023-08-29] MEDS: polyethylene glycoL 3350 17 GM POWD.PACK PO (08:03)
--- NOTE | 2023-08-29 09:55 | PM.PNORT ---
Progress Note: A&P Assessment and Plan (1) Status post revision of total knee replacement: Code(s): Z96.659 - Presence of unspecified artificial knee joint Status: Acute Assessment and Plan: POD 3 DOING WELL. SLIGHT DROP IN HGB BUT ASYMPTOMATIC. SHE WILL NEED REHAB VS SNF. OK TO DC WHEN OK PER MEDICINE. F/U IN 3 WEEKS. ASA 325 MG BID X 3 WEEKS FOR DVT PROPHYLAXIS Subjective Subjective Date/Time Seen: 08/29/23 09:55 Interval history: POD3 DOING WELL. NO CP OR SOB WITH ACTIVITY. NO CALF PAIN Exam Extrem: Other: VSS AFEBRILE DRESSING DRY NV INTACT NEG HOMANS SIGN CALF SOFT NON TENDER THIGH SOFT NON TENDER Objective Data Vital Signs Vital Signs: Vital Signs - 24 hr 08/28/23 14:00 08/28/23 21:02 08/28/23 21:48 Temperature 36.8 C 37.0 C Pulse Rate 68 78 91 Respiratory Rate 20 16 Blood Pressure 139/61 116/52 L Pulse Oximetry 96 97 Oxygen Delivery 08/29/23 05:19 08/29/23 08:25 Temperature 36.5 C Pulse Rate 77 Respiratory Rate 14 Blood Pressure 138/60 Pulse Oximetry 92 Oxygen Delivery Room Air Intake/Output Intake/Output: Intake & Output 08/26/23 08/27/23 08/28/23 08/29/23 23:59 23:59 23:59 23:59 Intake Total 500 1368 700 868 Output Total 1530 550 Balance -1030 818 700 868 Meds/Results Medications: Active Medications Generic Name Dose Route Start Last Admin Trade Name Freq PRN Reason Stop Dose Admin Acetaminophen 1,000 mg 08/26/23 13:56 Acetaminophen 500 Mg Tablet PO Q6H PRN Pain Rated 1-3 Aspirin 325 mg 08/26/23 21:00 08/29/23 08:02 Aspirin 325 Mg Enteric Tablet PO 325 mg Q12HR KEYLA Administration Carvedilol 25 mg 08/23/23 21:00 08/29/23 08:02 Carvedilol 25 Mg Tablet PO 25 mg Q12H KEYLA Administration Chlorthalidone 25 mg 08/25/23 09:00 08/29/23 08:02 Chlorthalidone 25 Mg Tablet PO 25 mg QAM KEYLA Administration Dextrose 12.5 gm 08/23/23 20:47 Dextrose 50% 25 Gm/50 Ml Syringe IV PUSH PRN PRN Hypoglycemia Protocol Diazepam 5 mg 08/24/23 22:51 08/28/23 12:28 Diazepam (*Crx) 5 Mg Tablet PO 5 mg BID PRN Administration Anxiety Diphenhydramine HCl 25 mg 08/26/23 13:56 Diphenhydramine Hcl Inj 50 Mg/Ml Vial IV PUSH Q6H PRN Itching Ezetimibe 10 mg 08/24/23 09:00 08/29/23 08:02 Ezetimibe 10 Mg Tablet PO 10 mg DAILY KEYLA Administration Ergocalciferol 50,000 units 09/01/23 09:00 Ergocalciferol 50,000 Units Capsule PO WEEKLY KEYLA Glucagon 1 mg 08/23/23 20:47 Glucagon For Inj 1 Mg Vial IM PRN PRN Hypoglycemia Protocol Glucose 15 gm 08/23/23 20:47 Glucose Oral Gel 15 Gm Of Glucse In 37.5 Gm Tube PO PRN PRN Hypoglycemia Protocol Dextrose 1,000 mls @ 100 mls/hr 08/23/23 20:47 Dextrose 5% 1,000 Ml IVPB PRN PRN Hypoglycemia Protocol Insulin Aspart 2 - 5 units 08/24/23 12:00 08/29/23 08:00 Insulin Aspart (*Bkc) 100 Units/Ml SUB-Q Not Given TIDWM KEYLA Protocol Losartan Potassium 100 mg 08/23/23 21:00 08/28/23 21:02 Losartan Potassium 100 Mg Tablet PO 100 mg HS KEYLA Administration Meclizine HCl 25 mg 08/23/23 14:52 Meclizine Hcl 25 Mg Tablet PO DAILY PRN Vertigo Multivitamins/Calcium 1 tablet 08/24/23 09:00 08/29/23 08:02 Therapeutic Multivitamins/Minerals Tab (*Bkc) PO 1 tablet DAILY KEYLA Administration Naloxone HCl 0.1 mg 08/26/23 13:56 Naloxone Hcl 0.4 Mg/Ml Vial IV PUSH Q2M PRN Opiate Reversal Nifedipine 30 mg 08/23/23 21:00 08/28/23 21:02 Nifedipine 30 Mg Tab.Er.24 PO 30 mg HS KEYLA Administration Nitroglycerin 0.4 mg 08/27/23 09:00 Nitroglycerin Sl 0.4 Mg Tablet SUBLINGUAL Q5MIN PRN Chest Pain Pitavastatin 4mg 1 each 08/24/23 12:00 08/29/23 08:03 Tablet *Home Supply PO 09/23/23 08:59 1 each * DAILY KEYLA Administration Ondansetron HCl 4 mg 08/26/23 13:56 03/
--- NOTE | 2023-08-29 10:49 | PCNFU ---
Nutrition Follow-Up Complete: Suboptimal po intake related to reduced appetite as evidenced by pt report. Goal:Po intake 75% or greater of meals Pt meeting goal at times Pt current nutrition is Diabetic consistent carb, Glucerna shakes BID. Nutrition recommendation: continue with current plan of care Last recorded weight is 81.2 kg. Bowel Motility: +BM 08/27 Labs Reviewed: Hgb:10, HCT:31.9, NA:134, GFR:33, BUN:22, Cr:1.8 Meds Noted: novolog, zofran, protonix Skin: no skin issues noted Additional Notes: Pt continues on a diabetic diet, intake varied 25-100%. Glucerna shakes BID in place. Continue to encourage po intake of meals and supplements. Monitor intake, wt, labs. Follow up in 5 days.
[2023-08-29 11:25] LABS: Glucose Point of Care 167 mg/dl (65-105)
[2023-08-29 12:06] LABS: Iron 38 ug/dL (37-170)
[2023-08-29 12:16] LABS: Percent Iron Saturation 19 % (20-50)
[2023-08-29] MEDS: IRON SUCROSE COMPLEX 300 MG in SODIUM CHLORIDE 0.9% IV 250 ML 177 MG IVPB (13:09)
[2023-08-29 13:15] LABS: Folic Acid 11.6 ng/mL (2.76->20)
[2023-08-29] MEDS: oxyCODONE/ACETAMINOPHEN (*CRX) 5-325 MG TABLET 2 TABLET PO ×2 (13:35→20:29)
[2023-08-29 14:00] VITALS: BP 119/37; PULSE 79; RESP 18; TEMP 37; O2SAT 95
[2023-08-29] MEDS: diazePAM (*CRX) 5 MG TABLET PO (14:28)
--- NOTE | 2023-08-29 16:55 | PM.IMPN ---
Progress Note: A&P Assessment and Plan (1) Left knee dislocation: Code(s): S83.105A - Unspecified dislocation of left knee, initial encounter Status: Acute (2) Dyslipidemia: Code(s): E78.5 - Hyperlipidemia, unspecified Status: Acute (3) Chronic kidney disease: Code(s): N18.9 - Chronic kidney disease, unspecified Status: Acute (4) Chronic obstructive pulmonary disease: Code(s): J44.9 - Chronic obstructive pulmonary disease, unspecified Status: Acute (5) Diabetes mellitus: Qualifiers: Diabetes mellitus type: type 2 Diabetes mellitus mcc insulin use: with intermediate teacher use Diabetes mellitus complication status: without complication Qualified Code(s): E11.9 - Type 2 diabetes mellitus without complications; Z79.4 - salvage determiner (current) use of insulin Code(s): E11.9 - Type 2 diabetes mellitus without complications Status: Acute Plan 78-year-old female status post left knee arthroplasty on 07/01/2023 with history of insulin-dependent diabetes type 2, hypertension, peripheral artery disease status post vascular surgery?, CKD, CAD status post stents, dyslipidemia intolerant to statins, COPD, status post left TKA in 06/2023 presents from home for evaluation of left knee pain. The patient lives at home by herself. Reported on 08/10/2023 the patient felt unsteady and almost fell but a son was able to catcher and thereafter she feels like her knee has been unstable and she has had pain. In [place] ER on 08/22/2023 left knee found to be dislocated and reduction attempt was unsuccessful. Thereafter Dr. Cedillo arrived and was able to reduce it under anesthesia. Patient underwent left TKA revision on 08/26/2023. Left TKA, recurrent dislocation -failed attempt at reduction in ER. Second attempt successful with Dr. Cedillo in the ER under anesthesia. On 08/24 the patient loosen her brace and developed another dislocation. Currently undergoing bedside reduction with Dr. Cedillo and Anesthesia team. -pain control per orthopedic surgeon. Patient will need to be on continuous pulse ox considering large dose sedatives/narcotics and her history of COPD. -she does not appear to be in any respiratory or cardiac acute deconditioning. EKG obtained. Check portable chest x-ray. She is a moderate risk candidate for a low/moderate risk procedure. -Dr. Cedillo plan for aspirin postop for DVT prophylaxis. The patient is a poor historian however she has charted CAD status post stents and peripheral artery disease status post vascular surgery. Her home antiplatelet is Plavix. Will to elicit further history from the family and consider all this for aspirin/Plavix use postop. -patient status post revision of left TKA ... POD #3 -postop care as per Orthopedics -patient cleared by Orthopedics to be discharged whenmedically stable Postop anemia Iron deficiency Borderline Vitamin B12 deficiency 08/29/2023: Patient had a drop in Hb level from 11.2 to 7.7 Anemia workup profile done which showed the iron deficiency and borderline vitamin B12 levels Patient ordered IV Venofer daily for 2 days Patient would need to be discharged on ferrous sulfate 324 mg orally bid daily Patient given vitamin B12 1000 mcg IM x1 dose She would need to be discharged on vitamin B12 1 g daily Monitor H&H closely CKD -appears stable. Continue to monitor closely considering operation on Friday -creatinine is stable at 2 -Gentle IV hydration ordered with normal saline at 75 cc/hour for 1000cc x another dose today -Strict input and output monitoring -Monitor renal functions closely Insulin-dependent diabetes mellitus -she has insulin pump at home. Episode of hypoglycemia on admission due to possibly over administration and poor oral intake. Pump discontinued. Continue Accu-Cheks with hypoglycemia protocol and sliding scale only. Readjust postop. Peripheral artery disease -chronic, stable. Will foll
[2023-08-29 17:05] LABS: Glucose Point of Care 163 mg/dl (65-105)
[2023-08-29] MEDS: CYANOCOBALAMIN INJ 1,000 MCG/ML VIAL 1000 MCG IM (17:21)
[2023-08-29] MEDS: LOSARTAN POTASSIUM 100 MG TABLET PO (20:29)
[2023-08-29] MEDS: NIFEdipine 30 MG TAB.ER.24 PO (20:29)
[2023-08-29 22:00] VITALS: BP 119/44; PULSE 83; RESP 16; TEMP 37.2; O2SAT 93
[2023-08-29 22:50] LABS: Glucose Point of Care 158 mg/dl (65-105)
[2023-08-30 06:00] VITALS: BP 126/55; PULSE 73; RESP 16; TEMP 36.6; O2SAT 99
[2023-08-30 07:05] LABS: Basophils Percent Auto 0.3 % (0.2-1.2); Eosinophils Absolute Auto 0.3 K/mm3 (0-0.3); Eosinophils Percent Auto 4.3 % (0-4.4); Hematocrit 24.8 % (37.0-47.0); Hemoglobin 7.4 g/dL (12.0-15.0); Immature Granulocyte Absolute 0.06 K/mm3 (0.00-0.031); Immature Granulocyte Percent A 0.9 % (0-0.5); Lymphocytes Absolute Auto 2.15 K/mm3 (0.9-3.2); Lymphocytes Percent Auto 31.5 % (18.3-44.2); Mean Corpuscular HGB Conc 29.8 g/dl (32-36); Mean Corpuscular Hemoglobin 28.4 pg (26-34); Mean Platelet Volume 10.3 fl (7.4-10.4); Monocytes Absolute Auto 0.5 K/mm3 (0.1-0.6); Monocytes Percent Auto 7.3 % (2.6-8.5); Neutrophils Absolute Auto 3.8 K/mm3 (1.3-6.7); Neutrophils Percent Auto 55.7 % (45.5-73.1); Platelet Count Result 214 k/mm3 (150-375); Red Blood Count 2.61 M/mm3 (4.2-5.4); Red Cell Distribution Width 15.1 % (11.5-14.5); White Blood Count 6.8 K/mm3 (4.5-10.0)
[2023-08-30 07:14] LABS: Anion Gap 7 mmol/L (4-12); Blood Urea Nitrogen 26 mg/dL (7-17); Calcium 9.8 mg/dL (8.4-10.2); Carbon Dioxide 26 mmol/L (22-30); Chloride 102 mmol/L (98-107); Estimated CRCL calculation 22 ml/min; Estimated Glomerular Filt Rate 26; Glucose 195 mg/dL (65-110); Potassium 3.9 mmol/L (3.4-5.0); Sodium 135 mmol/L (137-145)
[2023-08-30 07:41] LABS: Glucose Point of Care 149 mg/dl (65-105)
[2023-08-30 08:30] LABS: Anisocytosis 1+; Hypochromasia 1+; Platelet Estimate Adequate (Adequate)
[2023-08-30 08:31] LABS: Schistocytes None Seen
[2023-08-30 09:32] VITALS: PULSE 70
[2023-08-30] MEDS: ASPIRIN 325 MG ENTERIC TABLET PO ×2 (09:32→20:52)
[2023-08-30] MEDS: CYANOCOBALAMIN 1,000 MCG TABLET 1000 MCG PO (09:32)
[2023-08-30] MEDS: SENNA/DOCUSATE SODIUM TABLET 2 TAB PO ×2 (09:32→17:28)
[2023-08-30] MEDS: PANTOPRAZOLE 40 MG TABLET PO (09:32)
[2023-08-30] MEDS: CHLORTHALIDONE 25 MG TABLET PO (09:32)
[2023-08-30] MEDS: carvediloL 25 MG TABLET PO ×2 (09:32→20:52)
[2023-08-30] MEDS: THERAPEUTIC MULTIVITAMINS/MINERALS TAB (*BKC) 1 TABLET PO (09:32)
[2023-08-30] MEDS: polyethylene glycoL 3350 17 GM POWD.PACK PO (09:32)
[2023-08-30] MEDS: SPIRONOLACTONE 25 MG TABLET PO (09:32)
[2023-08-30] MEDS: EZETIMIBE 10 MG TABLET PO (09:32)
[2023-08-30] MEDS: FERROUS SULFATE 325 MG TABLET DR PO ×2 (09:33→17:28)
[2023-08-30] MEDS: IRON SUCROSE COMPLEX 300 MG in SODIUM CHLORIDE 0.9% IV 250 ML 177 MG IVPB (09:33)
--- NOTE | 2023-08-30 09:57 | PM.IMPN ---
Progress Note: A&P Assessment and Plan (1) Left knee dislocation: Code(s): S83.105A - Unspecified dislocation of left knee, initial encounter Status: Acute (2) Dyslipidemia: Code(s): E78.5 - Hyperlipidemia, unspecified Status: Acute (3) Chronic kidney disease: Code(s): N18.9 - Chronic kidney disease, unspecified Status: Acute (4) Chronic obstructive pulmonary disease: Code(s): J44.9 - Chronic obstructive pulmonary disease, unspecified Status: Acute (5) Diabetes mellitus: Qualifiers: Diabetes mellitus type: type 2 Diabetes mellitus [facility] insulin use: with intermodal truck driver use Diabetes mellitus complication status: without complication Qualified Code(s): E11.9 - Type 2 diabetes mellitus without complications; Z79.4 - adjunct faculty for medical terminology (current) use of insulin Code(s): E11.9 - Type 2 diabetes mellitus without complications Status: Acute Plan 78-year-old female status post left knee arthroplasty on 07/01/2023 with history of insulin-dependent diabetes type 2, hypertension, peripheral artery disease status post vascular surgery?, CKD, CAD status post stents, dyslipidemia intolerant to statins, COPD, status post left TKA in 06/2023 presents from home for evaluation of left knee pain. The patient lives at home by herself. Reported on 08/10/2023 the patient felt unsteady and almost fell but a son was able to catcher and thereafter she feels like her knee has been unstable and she has had pain. In [place] ER on 08/22/2023 left knee found to be dislocated and reduction attempt was unsuccessful. Thereafter Dr. Cedillo arrived and was able to reduce it under anesthesia. Patient underwent left TKA revision on 08/26/2023. Left TKA, recurrent dislocation -failed attempt at reduction in ER. Second attempt successful with Dr. Cedillo in the ER under anesthesia. On 08/24 the patient loosen her brace and developed another dislocation. Currently undergoing bedside reduction with Dr. Cedillo and Anesthesia team. -pain control per orthopedic surgeon. Patient will need to be on continuous pulse ox considering large dose sedatives/narcotics and her history of COPD. -she does not appear to be in any respiratory or cardiac acute deconditioning. EKG obtained. Check portable chest x-ray. She is a moderate risk candidate for a low/moderate risk procedure. -Dr. Cedillo plan for aspirin postop for DVT prophylaxis. The patient is a poor historian however she has charted CAD status post stents and peripheral artery disease status post vascular surgery. Her home antiplatelet is Plavix. Will to elicit further history from the family and consider all this for aspirin/Plavix use postop. -patient status post revision of left TKA ... POD #3 -postop care as per Orthopedics -patient cleared by Orthopedics to be discharged whenmedically stable Postop anemia Iron deficiency Borderline Vitamin B12 deficiency 08/30/2023: Patient had a drop in Hb level from 7.7 to 7.4 today Anemia workup profile done which showed the iron deficiency and borderline vitamin B12 levels Patient ordered IV Venofer daily for 2 days Patient would need to be discharged on ferrous sulfate 324 mg orally bid daily Patient given vitamin B12 1000 mcg IM x1 dose She would need to be discharged on vitamin B12 1 g daily Monitor H&H closely CKD -appears stable. Continue to monitor closely considering operation on Friday -creatinine is stable at 2.2 Will hold off on diuretics. CMP in am Insulin-dependent diabetes mellitus -she has insulin pump at home. Episode of hypoglycemia on admission due to possibly over administration and poor oral intake. Pump discontinued. Continue Accu-Cheks with hypoglycemia protocol and sliding scale only. Readjust postop. Peripheral artery disease -chronic, stable. Will follow CAD status post stents -chronic, stable. Will follow COPD -chronic, stable. Will follow FEN: Saline lo
--- NOTE | 2023-08-30 10:07 | PCOTNOTE ---
Attempted to see pt for Occupational Therapy. Pt is expressing that she feels her blood sugar is low and is currently eating sherbert at this time. Pt observed to be very tired as well. RN is aware of pt's status. Will attempt at a later time today.
[2023-08-30 10:54] VITALS: O2SAT 95
[2023-08-30 11:45] LABS: Glucose Point of Care 80 mg/dl (65-105)
[2023-08-30 12:20] LABS: Glucose Point of Care 82 mg/dl (65-105)
[2023-08-30 14:00] VITALS: BP 130/85; PULSE 65; RESP 16; TEMP 36.6; O2SAT 98
[2023-08-30 16:31] LABS: Glucose Point of Care 192 mg/dl (65-105)
[2023-08-30] MEDS: LOSARTAN POTASSIUM 100 MG TABLET PO (20:52)
[2023-08-30] MEDS: NIFEdipine 30 MG TAB.ER.24 PO (20:52)
[2023-08-30] MEDS: oxyCODONE/ACETAMINOPHEN (*CRX) 5-325 MG TABLET 2 TABLET PO (20:52)
[2023-08-30] MEDS: diazePAM (*CRX) 5 MG TABLET PO (20:56)
[2023-08-30 22:00] VITALS: BP 142/45; PULSE 80; RESP 16; TEMP 37.1; O2SAT 98
[2023-08-31] MEDS: oxyCODONE/ACETAMINOPHEN (*CRX) 5-325 MG TABLET 1 TABLET PO (03:38)
[2023-08-31] MEDS: diazePAM (*CRX) 5 MG TABLET PO (03:38)
[2023-08-31] MEDS: oxyCODONE/ACETAMINOPHEN (*CRX) 5-325 MG TABLET 2 TABLET PO (05:24)
[2023-08-31 06:00] VITALS: BP 125/42; PULSE 76; RESP 18; TEMP 36.6; O2SAT 96
[2023-08-31 07:06] LABS: Basophils Percent Auto 0.4 % (0.2-1.2); Eosinophils Absolute Auto 0.3 K/mm3 (0-0.3); Eosinophils Percent Auto 3.5 % (0-4.4); Hematocrit 25.8 % (37.0-47.0); Immature Granulocyte Percent A 1.1 % (0-0.5); Lymphocytes Absolute Auto 2.29 K/mm3 (0.9-3.2); Lymphocytes Percent Auto 25.7 % (18.3-44.2); Mean Corpuscular Hemoglobin 28.9 pg (26-34); Mean Corpuscular Volume 93.1 fl (80-100); Mean Platelet Volume 9.9 fl (7.4-10.4); Monocytes Absolute Auto 0.8 K/mm3 (0.1-0.6); Monocytes Percent Auto 9.2 % (2.6-8.5); Neutrophils Absolute Auto 5.3 K/mm3 (1.3-6.7); Neutrophils Percent Auto 60.1 % (45.5-73.1); Nucleated Red Blood Cells Perc 0.6 % (0.0-0.2); Platelet Count Result 255 k/mm3 (150-375); Red Blood Count 2.77 M/mm3 (4.2-5.4); Red Cell Distribution Width 14.8 % (11.5-14.5); White Blood Count 8.9 K/mm3 (4.5-10.0)
[2023-08-31 07:19] LABS: Alanine Aminotransferase 29 U/L (6-35); Albumin Level 3.5 g/dL (3.5-5.1); Alkaline Phosphatase 87 U/L (38-126); Anion Gap 3 mmol/L (4-12); Aspartate Amino Transferase 45 U/L (14-36); Bilirubin,Total 0.5 mg/dL (0.2-1.3); Blood Urea Nitrogen 22 mg/dL (7-17); Calcium 10.1 mg/dL (8.4-10.2); Carbon Dioxide 30 mmol/L (22-30); Chloride 101 mmol/L (98-107); Estimated CRCL calculation 26 ml/min; Estimated Glomerular Filt Rate 33; Glucose 147 mg/dL (65-110); Potassium 4.5 mmol/L (3.4-5.0); Sodium 134 mmol/L (137-145)
[2023-08-31 07:57] LABS: Glucose Point of Care 145 mg/dl (65-105)
[2023-08-31] MEDS: EZETIMIBE 10 MG TABLET PO (08:54)
[2023-08-31 08:55] VITALS: PULSE 76
[2023-08-31] MEDS: carvediloL 25 MG TABLET PO (08:55)
[2023-08-31] MEDS: PANTOPRAZOLE 40 MG TABLET PO (08:55)
[2023-08-31] MEDS: ASPIRIN 325 MG ENTERIC TABLET PO (08:55)
[2023-08-31] MEDS: FERROUS SULFATE 325 MG TABLET DR PO (08:55)
[2023-08-31] MEDS: CYANOCOBALAMIN 1,000 MCG TABLET 1000 MCG PO (08:55)
[2023-08-31] MEDS: SENNA/DOCUSATE SODIUM TABLET 2 TAB PO (08:55)
[2023-08-31] MEDS: THERAPEUTIC MULTIVITAMINS/MINERALS TAB (*BKC) 1 TABLET PO (08:55)
[2023-08-31] MEDS: polyethylene glycoL 3350 17 GM POWD.PACK PO (08:56)
--- NOTE | 2023-08-31 10:12 | PM.IMPN ---
Progress Note: A&P Assessment and Plan (1) Left knee dislocation: Code(s): S83.105A - Unspecified dislocation of left knee, initial encounter Status: Acute Assessment and Plan: Status post surgery, pain under control, will continue with physical therapy. (2) Dyslipidemia: Code(s): E78.5 - Hyperlipidemia, unspecified Status: Acute Assessment and Plan: Stable on current medication, continue current treatment. (3) Chronic kidney disease: Code(s): N18.9 - Chronic kidney disease, unspecified Status: Acute Assessment and Plan: Creatinine is 1.8 today, improving. Monitor closely. (4) Chronic obstructive pulmonary disease: Code(s): J44.9 - Chronic obstructive pulmonary disease, unspecified Status: Acute Assessment and Plan: Stable on current medication, continue current treatmen (5) Diabetes mellitus: Qualifiers: Diabetes mellitus type: type 2 Diabetes mellitus oysterman insulin use: with oysterman use Diabetes mellitus complication status: without complication Qualified Code(s): E11.9 - Type 2 diabetes mellitus without complications; Z79.4 - group home (current) use of insulin Code(s): E11.9 - Type 2 diabetes mellitus without complications Status: Acute Assessment and Plan: Stable on current medication, continue current treatmen (6) Anemia of chronic disease: Code(s): D63.8 - Anemia in other chronic diseases classified elsewhere Status: Acute Assessment and Plan: Stable on current medication, continue current treatmen Plan DVT prophylaxis: Aspirin 325 mg. Hold Plavix. Lines: Peripheral IV Code Status: Full code Dispo: DC patient to [facility] when stable. Subjective Date/time seen: 08/31/23 10:12 Interval history: Patient was seen during the morning rounds today. Patient is feeling better. Patient pain is under control. No new overnight complaints. No shortness of breath or chest pain. Mood stable. Review of Systems Review of Systems: 14 systems were reviewed with pertinent positives and negatives per HPI. Except as documented in the HPI/progress notes, all other systems were reviewed and are negative. All systems reviewed & are unremarkable except as noted in HPI and below (Subjective) Exam Const: General: comfortable and no acute distress Other: A&O x3 Eyes: Pupils: Equal, round and reactive pupils present Neck: Neck: supple Resp: Effort & Inspection: normal respiratory effort Auscultation: clear to auscultation bilaterally Other: Coarse breath sound Cardio: Rate: regular rate Rhythm: regular rhythm Heart sounds: no gallops, no murmurs and no rubs Neuro: Cranial nerves: Yes Equal, round and reactive pupils present Extrem: General: no edema Other: Neurovascular intact. Status post left knee surgery Objective Data Vital Signs Vital Signs: Vital Signs - 24 hr 08/30/23 10:54 08/30/23 14:00 08/30/23 22:00 Temperature 36.6 C 37.1 C Pulse Rate 65 80 Respiratory Rate 16 16 Blood Pressure 130/85 142/45 H Pulse Oximetry 95 98 98 Oxygen Delivery Room Air 08/31/23 06:00 08/31/23 08:55 Temperature 36.6 C Pulse Rate 76 76 Respiratory Rate 18 Blood Pressure 125/42 L Pulse Oximetry 96 Oxygen Delivery Intake/Output Intake/Output: Intake & Output 08/28/23 08/29/23 08/30/23 08/31/23 23:59 23:59 23:59 23:59 Intake Total 700 1373 580 118 Balance 700 1373 580 118 Meds/Results Medications: Active Medications Generic Name Dose Route Start Last Admin Trade Name Freq PRN Reason Stop Dose Admin Acetaminophen 1,000 mg 08/26/23 13:56 Acetaminophen 500 Mg Tablet PO Q6H PRN Pain Rated 1-3 Aspirin 325 mg 08/26/23 21:00 08/31/23 08:55 Aspirin 325 Mg Enteric Tablet PO 325 mg Q12HR KEYLA Administration Carvedilol 25 mg 08/23/23 21:00 08/31/23 08:55 Carvedilol 25 Mg
[2023-08-31 11:02] LABS: Glucose Point of Care 166 mg/dl (65-105)
[2023-08-31] MEDS: ONDANSETRON INJ 4 MG/2 ML VIAL IV PUSH (11:14)
[2023-08-31 11:52] LABS: Glucose Point of Care 188 mg/dl (65-105)
[2023-08-31 14:00] VITALS: BP 113/42; PULSE 76; RESP 16; TEMP 36.3; O2SAT 98
--- NOTE | 2023-08-31 14:59 | PM.DS ---
DS: Admitting Diagnosis Discharge Date 08/31/2023 Admitting Diagnosis 1) Left knee dislocation: ?Code(s):? ? ? (2) Dyslipidemia: ?Code(s): E78.5 - Hyperlipidemia, unspecified ?Status:?Acute (3) Chronic kidney disease: ?Code(s): N18.9 - Chronic kidney disease, unspecified ?Status:?Acute (4) Chronic obstructive pulmonary disease: ?Code(s): J44.9 - Chronic obstructive pulmonary disease, unspecified ?Status:?Acute (5) Diabetes mellitus: DS: Discharge Diagnosis Discharge Diagnosis Plan 1) Left knee dislocation: ?Code(s): S83.105A - Unspecified dislocation of left knee, initial encounter ?Status:?Acute (2) Dyslipidemia: ?Code(s): E78.5 - Hyperlipidemia, unspecified ?Status:?Acute (3) Chronic kidney disease: ?Code(s): N18.9 - Chronic kidney disease, unspecified ?Status:?Acute (4) Chronic obstructive pulmonary disease: ?Code(s): J44.9 - Chronic obstructive pulmonary disease, unspecified ?Status:?Acute (5) Diabetes mellitus: DS: Summary Hospital Course Reason for hospitalization: Dislocation of the left knee Hospital Course: 78 years old female was admitted for dislocation of the left knee surgery was performed to and rehab was started. Patient did not have any complication during states hospital. Patient continues to improve with physical therapy. Patient also noted to have chronic kidney disease dyslipidemia COPD and diabetes and chronic anemia. Home medication was reviewed continue during the stay in the hospital. Today patient is feeling better and was transferred to rehab with exercise and physical therapy. Patient will continue aspirin 325 mg p.o. b.i.d. for total of 3 weeks. After that had a regular aspirin and Plavix will be started. Follow schedule. Status at Discharge Cognitive/behavioral status at discharge: Stable Time Spent with Patient Time attestation: More then 30 minutes spent providing and/or coordinating discharge services: Exam Narrative: Stable DS: Data Data Completed and Pending Labs on day of discharge: Labs from last 24 hours 08/31/23 08/31/23 08/31/23 11:49 07:44 06:16 WBC 8.9 RBC 2.77 L Hgb 8.0 L Hct 25.8 L MCV 93.1 MCH 28.9 MCHC 31.0 L RDW 14.8 H Plt Count 255 MPV 9.9 Immature Gran % (Auto) 1.1 H Neut % (Auto) 60.1 Lymph % (Auto) 25.7 Nye % (Auto) 9.2 H Eos % (Auto) 3.5 Baso % (Auto) 0.4 Lymph # (Auto) 2.29 Nye # (Auto) 0.8 H Eos # (Auto) 0.3 Baso # (Auto) 0.0 Abs Immat Gran (auto) 0.10 H Absolute Neuts (auto) 5.3 Absolute Nucleated RBC 0.050 H Nucleated RBC % 0.6 H Sodium 134 L Potassium 4.5 Chloride 101 Carbon Dioxide 30 Anion Gap 3 L BUN 22 H Creatinine 1.80 H Estim Creat Clear Calc 26 Estimated GFR 33 L Glucose 147 H POC Capillary Glucose 188 H 145 H Calcium 10.1 Total Bilirubin 0.5 AST 45 H ALT 29 Alkaline Phosphatase 87 Total Protein 7.0 Albumin 3.5 08/30/23 08/30/23 21:41 16:17 WBC RBC Hgb Hct MCV MCH MCHC RDW Plt Count MPV Immature Gran % (Auto) Neut % (Auto) Lymph % (Auto) Nye % (Auto) Eos % (Auto) Baso % (Auto) Lymph # (Auto) Nye # (Auto) Eos # (Auto) Baso # (Auto) Abs Immat Gran (auto) Absolute Neuts (auto) Absolute Nucleated RBC Nucleated RBC % Sodium Potassium Chloride Carbon Dioxide Anion Gap BUN Creatinine Estim Creat Clear Calc Estimated GFR Glucose POC Capillary Glucose 166 H 192 H Calcium Total Bilirubin AST ALT Alkaline Phosphatase Total Protein Albumin Discharge Plan Discharge Attending physician on discharge: Wallace Dasilva Consulting providers: Jerman Garza Discharging Clinician: Wallace Dasilva Patient Disposition[facility] Activity: as tolerated Diet: as tolerated
--- NOTE | 2023-08-31 15:15 | PCPTNOTE ---
Treatment not completed at this time. When checking on the patient she was getting packed up ready for discharge.
[2023-08-31 16:48] LABS: SARS-CoV-2 RNA PCR Negative (Negative)
== END 2023-08-31 16:20 | DRG 467 ==
LOC: ANHED 12:27 → ANH3MEDSUR 13:15
PROVIDERS: Family Medicine; General Practice; Orthopaedic Surgery; Physician Assistant; Admitting Provider Internal Medicine; Emergency Provider Family Medicine; PCP Physician Assistant; Visit Provider Internal Medicine
PROC: 0SPD0JZ Removal of Synthetic Substitute from Left Knee Joint, Open Approach (ICD-10-PCS; CPT 27447; principal; 2023-08-26 14:00)
DX: T84.023A Instability of internal left knee prosthesis, initial encounter (principal); N18.4 Chronic kidney disease, stage 4 (severe); I12.9 Hypertensive chronic kidney disease with stage 1 through stage 4 chronic kidney disease, or unspecified chronic kidney disease; I73.9 Peripheral vascular disease, unspecified; I25.10 Atherosclerotic heart disease of native coronary artery without angina pectoris; J44.9 Chronic obstructive pulmonary disease, unspecified; E11.22 Type 2 diabetes mellitus with diabetic chronic kidney disease; E11.42 Type 2 diabetes mellitus with diabetic polyneuropathy; E78.5 Hyperlipidemia, unspecified; D64.89 Other specified anemias; G47.33 Obstructive sleep apnea (adult) (pediatric); W19.XXXA Unspecified fall, initial encounter; Z96.652 Presence of left artificial knee joint; Z90.49 Acquired absence of other specified parts of digestive tract; Z95.5 Presence of coronary angioplasty implant and graft; Z95.820 Peripheral vascular angioplasty status with implants and grafts; Z87.891 Personal history of nicotine dependence; Z11.52 Encounter for screening for COVID-19
CPT/HCPCS: 27560; 36415; 71045; 73560; 73564; 80048; 80053; 82607; 82728; 82746; 82948; 83540; 83550; 83735; 84100; 85025; 85027; 85610; 86850; 86900; 86901; 87635; 93005; 96374; 96375; 97110; 97116; 97161; 97165; 97530; 97535; 99285; A9270; C1713; C1776; G0378; J0171; J0690; J1170; J1756; J1815; J1885; J2270; J2371; J2405; J2704; J2795; J3010; J3360; J3370; J3420; J7030; J7050; J7120; J7121

== ENCOUNTER 2023-10-14 11:01 | Outpatient (CLI) | payer OTHER, SELFPAY ==
--- NOTE | ~2023-10-14 | XR_ITS ---
Clinical Indication: Dyspnea PA and lateral views of the chest: Comparison: 08/25/2023 Findings: The lungs are clear, without evidence of focal consolidation or pleural effusion. Cardiome diastinal silhouette is within normal limits. Bones and soft tissues are unremarkable. Impression: Normal chest. Reviewed, dictated and finalized at location . Impression: Normal chest.
== END 2023-10-14 11:02 | disposition home or self-care (01) ==
PROVIDERS: PCP Physician Assistant; Visit Provider Internal Medicine
DX: R06.09 Other forms of dyspnea (principal)
CPT/HCPCS: 71046

== ENCOUNTER 2024-09-22 13:24 | Outpatient (CLI) | payer OTHER, SELFPAY ==
--- NOTE | ~2024-09-22 | US_ITS ---
Left posterolateral wrist ULTRASOUND (Doppler ultrasound interrogation techniques used as needed for this exam.) Ordering provider: Jerman Garza MD History: . R22.32 - Localized swelling, mass and lump, left upper limb . Comparison: None. FINDINGS/impression: No definite mass is seen. Reviewed, dictated and finalized at location A.
== END 2024-09-22 13:25 | disposition home or self-care (01) ==
LOC: MICIMG 13:27
PROVIDERS: PCP Internal Medicine; Visit Provider Orthopaedic Surgery
DX: R22.32 Localized swelling, mass and lump, left upper limb (principal)
CPT/HCPCS: 76882